=== PATIENT | male | born 1940 | race Caucasian/White ===

== ENCOUNTER 2017-08-09 18:34 | Inpatient (IN) | payer MEDICARE, BC ==
[2017-08-09] MEDS ORDERED: Lactated Ringers 1,000 ML IV SCH ×2 (19:00→19:15)
--- NOTE | 2017-08-09 19:09 | EDM.PDOC ---
ED HPI GENERAL MEDICAL PROBLEM - General Chief Complaint: General Stated Complaint: weakness, fever, confusion Time Seen by Provider: 08/09/17 19:50 Source of Information: Reports: Patient History Limitations: Reports: Altered Mental Status - History of Present Illness INITIAL COMMENTS - FREE TEXT/NARRATIVE: Patient is a 77-year-old who was brought in by the [facility] at the request of the family secondary to changes, progressively getting worse in the last couple days notice decrease appetite lack of interest confusion. Generalized weakness unable to give from up from bed and severe diarrhea Onset: Gradual Duration: Day(s): (Last 2-3 days), Getting Worse Location: Reports: Generalized Quality: Reports: Other (Denies any pain) Improves with: Reports: None Worsens with: Reports: None Context: Reports: Other (Ill-appearing) Associated Symptoms: Reports: Confusion, Fever/Chills, Loss of Appetite, Weakness - Related Data Allergies Allergy/AdvReac Type Severity Reaction Status Date / Time No Known Allergies Allergy Verified 08/09/17 18:41 Home Meds: Home Meds Aspirin 325 mg PO DAILY 08/09/17 [History] Cholecalciferol (Vitamin D3) [Vitamin D3] 2,000 unit PO DAILY 08/09/17 [History] Docusate Sodium [Dok] 100 mg PO QID 08/09/17 [History] Ferrous Sulfate 325 mg PO DAILY 08/09/17 [History] Furosemide [Lasix] 40 mg PO BID 08/09/17 [History] Gabapentin [Neurontin] 300 mg PO BID 08/09/17 [History] Insulin Aspart [Novolog Flexpen] 6 units SQ ASDIRECTED PRN 08/09/17 [History] Insulin Aspart [Novolog Flexpen] 12 units SQ DAILY 08/09/17 [History] Insulin Aspart [Novolog Flexpen] 23 units SQ DAILY@1700 08/09/17 [History] Insulin Aspart [Novolog Flexpen] 27 units SQ DAILY@1200 08/09/17 [History] Insulin Glargine,Hum.Rec.Anlog [Basaglar Kwikpen U-100] 68 unit SQ DAILY [History] Losartan [Cozaar] 100 mg PO DAILY 08/09/17 [History] Metoprolol Succinate 100 mg PO DAILY 08/09/17 [History] Multivitamin [Multivitamins] 1 tab PO DAILY 08/09/17 [History] [place]-3/DHA/Epa/Fish Oil [[place] 3 500 Softgel] 2 tab PO DAILY 08/09/17 [History] Oxybutynin [Oxybutynin ER] 10 mg PO BEDTIME 08/09/17 [History] Solifenacin [Vesicare] 10 mg PO DAILY 08/09/17 [History] Travoprost [Travatan Z 0.004% Ophth Soln] 2 drop EYEBOTH BEDTIME 08/09/17 [ History] Triamcinolone Acetonide [Triamcinolone Acetonide 0.1% Crm] 1 applic TOP BID [History] amLODIPine Besylate [Amlodipine Besylate] 10 mg PO DAILY 08/09/17 [History] atorvaSTATin [Lipitor] 40 mg PO BEDTIME 08/09/17 [History] hydrALAZINE [Apresoline] 100 mg PO QID 08/09/17 [History] ED ROS GENERAL - Review of Systems Review Of Systems: See Below Constitutional: Reports: Chills, Weakness, Decreased Appetite HEENT: Reports: No Symptoms Respiratory: Reports: No Symptoms Cardiovascular: Reports: No Symptoms Endocrine: Reports: No Symptoms GI/Abdominal: Reports: No Symptoms : Reports: No Symptoms Musculoskeletal: Reports: Muscle Pain Skin: Reports: Dryness Neurological: Reports: Confusion, Weakness Psychiatric: Reports: No Symptoms Hematologic/Lymphatic: Reports: No Symptoms Immunologic: Reports: No Symptoms ED EXAM, GENERAL - Physical Exam Exam: See Below Exam Limited By: Altered Mental Status General Appearance: Alert (But confused), No Apparent Distress, Other (Obese) Ears: Normal External Exam, Normal Canal, Hearing Grossly Normal Ear Exam: Bilateral Ear: Auricle Normal, Canal Normal, TM normal Nose: Normal Inspection Throat/Mouth: Normal Inspection, Normal Lips, Normal Teeth, Normal Gums, Normal Oropharynx, Normal Voice, No Airway Compromise Head: Atraumatic, Normocephalic Neck: Normal Inspection, Supple, Non-Tender, Full Range of Motion Respiratory/Chest: No Respiratory Distress, Decreased Breath Sounds, Rales ( Basis) Cardiovascular: Regular Rate, Rhythm, Systolic Murmur Course - Vital Signs Last Recorded V/S: Last Vital Signs Temp 98.8 F 08/10/17 12:00 Pulse 73 08/10/17 12:00 Resp 18 08/10/17 12:00 BP 112/53 L 08/10/17 12:14 Pulse Ox 95 08/10/17 12:00 - Orders/Labs/Meds Labs: Laboratory Tests 08/09/17 08/09/17 08/09/17 Range/Units 19:05 19:05 19:05 WBC 17.3 H (4.0-10.2) K/uL RBC 4.00 L (4.33-5.41) M/uL Hgb 12.1 L (13.1-16.8) g/dL Hct 34.2 L (39.0-49.0) % MCV 85.5 (84.0-98.0) fL MCH 30.3 (28.2-33.3) pg MCHC 35.4 (31.7-36.0) g/dL RDW 13.8 (11.2-14.1) % Plt Count 170 (150-350) K/uL Neut % (Auto) 83.3 H (45.0-80.0) % Lymph % (Auto) 7.5 L (10.0-50.0) % [place] % (Auto) 8.4 (2.0-14.0) % Eos % (Auto) 0.6 (0.0-5.0) % Baso % (Auto) 0.2 (0.0-2.0) % Neut # (Auto) 14.40 H (1.40-7.00) K/uL Lymph # (Auto) 1.29 (0.50-3.50) K/uL [place] # (Auto) 1.46 H (0.00-1.00) K/uL Eos # (Auto) 0.10 (0.00-0.50) K/uL Baso # (Auto) 0.03 (0.00-0.20) K/uL D-Dimer, Quantitative (0-400) ng/mL Sodium 138 (136-145) mmol/L Potassium 3.2 L (3.5-5.1) mmol/L Chloride 100 (98-107) mmol/L Carbon Dioxide 26.8 (21.0-32.0) mmol/L BUN 30 H (7-18) mg/dL Creatinine 1.69 H (0.51-1.17) mg/dL Est Cr Clr Drug Dosing 36.02 mL/min Estimated GFR (MDRD) 39 mL/min Glucose 98 (74-106) mg/dL Lactic Acid 1.5 (0.4-2.0) mmol/L Calcium 8.9 (8.5-10.1) mg/dL Total Bilirubin 0.8 (0.2-1.0) mg/dL AST 16 (15-37) U/L ALT 15 (12-78) U/L Alkaline Phosphatase 93 (46-116) IU/L NT-Pro-B Natriuret Pep (0-125) pg/mL Total Protein 8.0 (6.4-8.2) g/dL Albumin 3.3 L (3.4-5.0) g/dL 08/09/17 08/09/17 Range/Units 19:05 19:05 WBC (4.0-10.2) K/uL RBC (4.33-5.41) M/uL Hgb (13.1-16.8) g/dL Hct (39.0-49.0) % MCV (84.0-98.0) fL MCH (28.2-33.3) pg MCHC (31.7-36.0) g/dL RDW (11.2-14.1) % Plt Count (150-350) K/uL Neut % (Auto) (45.0-80.0) % Lymph % (Auto) (10.0-50.0) % [place] % (Auto) (2.0-14.0) % Eos % (Auto) (0.0-5.0) % Baso % (Auto) (0.0-2.0) % Neut # (Auto) (1.40-7.00) K/uL Lymph # (Auto) (0.50-3.50) K/uL [place] # (Auto) (0.00-1.00) K/uL Eos # (Auto) (0.00-0.50) K/uL Baso # (Auto) (0.00-0.20) K/uL D-Dimer, Quantitative 2110 H (0-400) ng/mL Sodium (136-145) mmol/L Potassium (3.5-5.1) mmol/L Chloride (98-107) mmol/L Carbon Dioxide (21.0-32.0) mmol/L BUN (7-18) mg/dL Creatinine (0.51-1.17) mg/dL Est Cr Clr Drug Dosing mL/min Estimated GFR (MDRD) mL/min Glucose (74-106) mg/dL Lactic Acid (0.4-2.0) mmol/L Calcium (8.5-10.1) mg/dL Total Bilirubin (0.2-1.0) mg/dL AST (15-37) U/L ALT (12-78) U/L Alkaline Phosphatase (46-116) IU/L NT-Pro-B Natriuret Pep 1229 H (0-125) pg/mL Total Protein (6.4-8.2) g/dL Albumin (3.4-5.0) g/dL Meds: Medications Discontinued Medications Generic Name Dose Route Start Last Admin Trade Name Freq PRN Reason Stop Dose Admin Acetaminophen 650 mg 08/10/17 03:39 08/10/17 10:12 Tylenol PO 650 mg Q4H PRN Administration Fever Amlodipine Besylate 10 mg 08/09/17 21:30 08/10/17 08:28 Norvasc PO 10 mg DAILY [facility] Administration Aspirin 325 mg 08/10/17 08:00 08/10/17 08:27 Aspirin PO 325 mg DAILY [facility] Administration Atorvastatin Calcium 40 mg 08/10/17 20:00 Lipitor PO BEDTIME [facility] Cholecalciferol 2,000 units 08/10/17 08:00 08/10/17 08:28 Vitamin D3 PO 2,000 units DAILY [facility] Administration Enoxaparin Sodium 40 mg 08/10/17 08:00 08/10/17 09:29 Lovenox SUBCUT Not Given DAILY [facility] Fish Oil 1 gm 08/10/17 08:00 08/10/17 08:27 Fish Oil PO 1 gm DAILY [facility] Administration Furosemide 40 mg 08/09/17 19:48 08/09/17 19:55 Lasix IVPUSH 08/09/17 19:49 40 mg NOW ONE Administration Furosemide 40 mg 08/10/17 08:00 08/10/17 08:29 Lasix IVPUSH 40 mg DAILY [facility] Administration Furosemide 40 mg 08/10/17 08:00 Lasix IVPUSH DAILY [facility] Gabapentin 300 mg 08/10/17 08:00 08/10/17 08:27 Neurontin PO 300 mg BID [facility] Administration Hydralazine HCl 100 mg 08/10/17 08:00 08/10/17 12:14 Apresoline PO Not Given QID [facility] Lactated Ringer's 1,000 mls @ 100 mls/hr 08/09/17 19:00 08/09/17 19:35 Ringers, Lactated IV 100 mls/hr ASDIRECTED [facility] Administration Lactated Ringer's 1,000 mls @ 100 mls/hr 08/09/17 19:15 Ringers, Lactated IV ASDIRECTED [facility] Levofloxacin/Dextrose 500 mg/ 100 mls @ 100 mls/hr 08/09/17 21:00 08/09/17 22 :16 Premix IV 100 mls/hr Q24H [facility] Administration Piperacillin Sod/Tazobactam 100 mls @ 200 mls/hr 08/09/17 22:00 08/10/17 09: 53 Sod 3.375 gm/ Sodium Chloride IV 200 mls/hr Q6H [facility] Administration Levofloxacin/Dextrose 750 mg/ 150 mls @ 100 mls/hr 08/12/17 10:00 Premix IV Q48H [facility] Piperacillin Sod/Tazobactam 100 mls @ 200 mls/hr 08/10/17 16:00 Sod 2.25 gm/ Sodium Chloride IV Q6H [facility] Insulin Aspart 6 unit 08/09/17 21:19 Novolog SUBCUT ASDIRECTED PRN with snacks Insulin Aspart 12 unit 08/10/17 08:00 Novolog SUBCUT DAILY [facility] Insulin Aspart 23 unit 08/10/17 17:00 Novolog SUBCUT DAILY@1700 [facility] Insulin Aspart 27 unit 08/10/17 12:00 08/10/17 12:02 Novolog SUBCUT Not Given DAILY@1200 [facility] Insulin Detemir 68 unit 08/10/17 08:00 08/10/17 09:25 Levemir SUBCUT Not Given DAILY [facility] Latanoprost 0 ml 08/10/17 20:00 Xalatan 0.005% Ophth Soln EYEBOTH BEDTIME [facility] Metoprolol Succinate 100 mg 08/10/17 08:00 08/10/17 08:26 Toprol Xl PO 100 mg DAILY [facility] Administration Potassium Chloride 40 meq 08/09/17 19:50 08/09/17 19:55 Klor-Con M20 PO 08/09/17 19:51 40 meq ONETIME ONE Administration Sodium Chloride 10 ml 08/09/17 19:12 08/10/17 04:03 Saline Flush FLUSH 10 ml ASDIRECTED PRN Administration Keep Vein Open Triamcinolone Acetonide 0 gm 08/10/17 08:00 08/10/17 08:30 Triamcinolone Acetonide 0.1% Crm TOP 1 applic BID [facility] Administration Departure - Departure Time of Disposition: 21:20 Disposition: Admitted As Inpatient 65 Condition: Poor Clinical Impression: CHF, Congestive heart failure, Hypoxemia, Chronic renal disease - Discharge Information - Problem List Review Problem List Initiated/Reviewed/Updated: Yes - Assessment/Plan Admission H&P: Please use this note as an admission H&P
[2017-08-09] MEDS ORDERED: Furosemide 40 MG/4 ML VIAL IVPUSH ONE (19:48)
[2017-08-09] MEDS ORDERED: Potassium Chloride 20 MEQ Tab.ER PO ONE (19:50)
[2017-08-09] MEDS: Sodium Chloride 0.9% 10 ML Syringe FLUSH PRN ×3 (19:55→23:19)
[2017-08-09] MEDS ORDERED: Levofloxacin/Dextrose 5%-Water 500 MG in Premix Bag 1 BAG IV SCH (21:00)
[2017-08-09] MEDS ORDERED: Insulin Aspart 100 Units/ML 3 ML Pen SUBCUT PRN (21:19)
[2017-08-09] MEDS: amLODIPine 5 MG Tab PO SCH (22:24)
[2017-08-09] MEDS: Piperacillin/Tazobactam 3.375 GM in Sodium Chloride 0.9% 100 ML IV SCH (23:19)
[2017-08-10] MEDS: Piperacillin/Tazobactam 3.375 GM in Sodium Chloride 0.9% 100 ML IV SCH ×2 (04:02→09:53)
[2017-08-10] MEDS: Acetaminophen 325 MG Tab PO PRN ×2 (04:02→10:12)
[2017-08-10] MEDS: Sodium Chloride 0.9% 10 ML Syringe FLUSH PRN (04:03)
[2017-08-10] MEDS ORDERED: Aspirin 325 MG Tab PO SCH (08:00)
[2017-08-10] MEDS ORDERED: Insulin Detemir 100 Units/ML 3 ML Pen SUBCUT SCH (08:00)
[2017-08-10] MEDS ORDERED: Triamcinolone Acetonide 0.1% Crm 15 GM Tube TOP SCH (08:00)
[2017-08-10] MEDS ORDERED: Gabapentin 300 MG Cap PO SCH (08:00)
[2017-08-10] MEDS ORDERED: Insulin Aspart 100 Units/ML 3 ML Pen SUBCUT SCH ×3 (08:00→17:00)
[2017-08-10] MEDS ORDERED: Cholecalciferol (Vitamin D3) 1,000 Unit Tab PO SCH (08:00)
[2017-08-10] MEDS ORDERED: Fish Oil/Omega-3 Fatty Acids 1 Gm Cap PO SCH (08:00)
[2017-08-10] MEDS ORDERED: Metoprolol Succinate 50 MG Tab.ER PO SCH (08:00)
[2017-08-10] MEDS ORDERED: Furosemide 40 MG/4 ML VIAL IVPUSH SCH ×2 (08:00)
[2017-08-10] MEDS: amLODIPine 5 MG Tab PO SCH (08:28)
[2017-08-10] MEDS: hydrALAZINE 50 MG Tab PO SCH ×2 (08:29→12:14)
[2017-08-10] MEDS: Enoxaparin 40 MG/0.4 ML Syringe SUBCUT SCH ×2 (08:30→09:29)
--- NOTE | 2017-08-10 12:01 | PCM.DCSUM1 ---
Discharge Summary - Hospital Course Free Text/Narrative:: Patient is a 77-year-old who was admitted to the hospital yesterday secondary to CHF pneumonia renal insufficiency and diarrhea for 3 days at this time patient was admitted and started on antibiotics Lasix and IV fluids patient became hypoxic during the night with watery diarrhea Hemoccult-positive at bedside today increased confusion and generalized weakness labs show hemoglobin dropping from 12.1 to 10.6 D dimer elevated to 2110 and creatinine up to 1.8 at this time I feel that this patient needs a perfusion scan and may need anticoagulant therapy but I'm concerned about his positive Hemoccult and all his comorbidities that are going on. - Discharge Data Discharge Date: 08/10/17 Discharge Disposition: Home, Self-Care 01 Preliminary Cause of *Q: Multi System Organ Failure Condition: Poor - Patient Summary/Data Consults: Consultations 08/09/17 20:50 Consult to Pharmacy [CONS] Routine Dr. Ferrari at [facility] [place] - Patient Instructions Diet: Heart Healthy Diet (Caffeine free) Activity: As Tolerated, Bedrest Showering/Bathing: No Showering - Discharge Plan Home Medications: Home Meds Aspirin 325 mg PO DAILY 08/09/17 [History] Cholecalciferol (Vitamin D3) [Vitamin D3] 2,000 unit PO DAILY 08/09/17 [History] Docusate Sodium [Dok] 100 mg PO QID 08/09/17 [History] Ferrous Sulfate 325 mg PO DAILY 08/09/17 [History] Furosemide [Lasix] 40 mg PO BID 08/09/17 [History] Gabapentin [Neurontin] 300 mg PO BID 08/09/17 [History] Insulin Aspart [Novolog Flexpen] 6 units SQ ASDIRECTED PRN 08/09/17 [History] Insulin Aspart [Novolog Flexpen] 12 units SQ DAILY 08/09/17 [History] Insulin Aspart [Novolog Flexpen] 23 units SQ DAILY@1700 08/09/17 [History] Insulin Aspart [Novolog Flexpen] 27 units SQ DAILY@1200 08/09/17 [History] Insulin Glargine,Hum.Rec.Anlog [Basaglar Kwikpen U-100] 68 unit SQ DAILY [History] Losartan [Cozaar] 100 mg PO DAILY 08/09/17 [History] Metoprolol Succinate 100 mg PO DAILY 08/09/17 [History] Multivitamin [Multivitamins] 1 tab PO DAILY 08/09/17 [History] [place]-3/DHA/Epa/Fish Oil [[place] 3 500 Softgel] 2 tab PO DAILY 08/09/17 [History] Oxybutynin [Oxybutynin ER] 10 mg PO BEDTIME 08/09/17 [History] Solifenacin [Vesicare] 10 mg PO DAILY 08/09/17 [History] Travoprost [Travatan Z 0.004% Ophth Soln] 2 drop EYEBOTH BEDTIME 08/09/17 [ History] Triamcinolone Acetonide [Triamcinolone Acetonide 0.1% Crm] 1 applic TOP BID [History] amLODIPine Besylate [Amlodipine Besylate] 10 mg PO DAILY 08/09/17 [History] atorvaSTATin [Lipitor] 40 mg PO BEDTIME 08/09/17 [History] hydrALAZINE [Apresoline] 100 mg PO QID 08/09/17 [History] Forms: ED Department Discharge Referrals: Aria Andrew, [employer] [Primary Care Provider] - - Discharge Summary/Plan Comment Discharge Summary/Plan Comment: At this time plan to transfer to [facility] Dr. Ferrari accepted transfer - General Info Date of Service: 08/10/17 Functional Status: Reports: Tolerating Diet - Review of Systems General: Reports: Fever, Weakness HEENT: Reports: No Symptoms Pulmonary: Reports: Other (Hypoxic) Gastrointestinal: Reports: Diarrhea (Cultures obtained) Genitourinary: Reports: Retention (Perez in place) Musculoskeletal: Reports: Other (Generalized weakness) Skin: Reports: No Symptoms Neurological: Reports: Confusion, Other ( states that while at home he was able to ambulate with some assistance but in the hospital he needs assistance of 2 to do minimal activity unable to ambulate or turn over in bed) Psychiatric: Reports: Confusion - Patient Data Vitals - Most Recent: Last Vital Signs Temp 100.9 F H 08/10/17 10:08 Pulse 79 08/10/17 08:26 Resp 20 08/10/17 08:00 BP 141/64 H 08/10/17 08:29 Pulse Ox 95 08/10/17 08:00 Weight - Most Recent: 265 lb I&O - Last 24 hours: Intake & Output 08/09/17 08/10/17 08/10/17 22:59 06:59 14:59 Intake Total 940 700 Output Total 600 Balance 340 700 Lab Results - Last 24 hrs: Laboratory Results - last 24 hr 08/09/17 08/10/17 08/10/17 Range/Units 23:35 03:30 03:58 WBC (4.0-10.2) K/uL RBC (4.33-5.41) M/uL Hgb (13.1-16.8) g/dL Hct (39.0-49.0) % MCV (84.0-98.0) fL MCH (28.2-33.3) pg MCHC (31.7-36.0) g/dL RDW (11.2-14.1) % Plt Count (150-350) K/uL Neut % (Auto) (45.0-80.0) % Lymph % (Auto) (10.0-50.0) % [place] % (Auto) (2.0-14.0) % Eos % (Auto) (0.0-5.0) % Baso % (Auto) (0.0-2.0) % Neut # (Auto) (1.40-7.00) K/uL Lymph # (Auto) (0.50-3.50) K/uL [place] # (Auto) (0.00-1.00) K/uL Eos # (Auto) (0.00-0.50) K/uL Baso # (Auto) (0.00-0.20) K/uL Sodium (136-145) mmol/L Potassium (3.5-5.1) mmol/L Chloride (98-107) mmol/L Carbon Dioxide (21.0-32.0) mmol/L BUN (7-18) mg/dL Creatinine (0.51-1.17) mg/dL Est Cr Clr Drug Dosing mL/min Estimated GFR (MDRD) mL/min Glucose (74-106) mg/dL POC Glucose 67 100 (65-110) mg/dl Calcium (8.5-10.1) mg/dL Specimen Type [place] Urine Color Yellow Urine Appearance Clear Urine pH 5.0 (5.0-9.0) Ur Specific [place] 1.010 (1.005-1.030) Urine Protein Negative (NEGATIVE) mg/dL Urine Glucose (UA) Negative (NEGATIVE) mg/dL Urine Ketones Negative (NEGATIVE) mg/dL Urine Occult Blood Negative (NEGATIVE) Urine Nitrite Negative (NEGATIVE) Urine Bilirubin Negative (NEGATIVE) Urine Urobilinogen 0.2 (0.2-1.0) E.U./dL Ur Leukocyte Esterase Negative (NEGATIVE) Urine RBC 0-5 /HPF Urine WBC Not seen /HPF Ur Epithelial Cells Rare /LPF Amorphous Sediment Few (0/HPF) /HPF Urine Bacteria Rare (NONE TO FEW) /HPF Hyaline Casts Rare H (NEGATIVE) /LPF 08/10/17 08/10/17 08/10/17 Range/Units 07:33 07:40 07:40 WBC 14.7 H (4.0-10.2) K/uL RBC 3.54 L (4.33-5.41) M/uL Hgb 10.7 L (13.1-16.8) g/dL Hct 30.3 L (39.0-49.0) % MCV 85.6 (84.0-98.0) fL MCH 30.2 (28.2-33.3) pg MCHC 35.3 (31.7-36.0) g/dL RDW 13.8 (11.2-14.1) % Plt Count 125 L (150-350) K/uL Neut % (Auto) 72.6 (45.0-80.0) % Lymph % (Auto) 14.0 (10.0-50.0) % [place] % (Auto) 12.7 (2.0-14.0) % Eos % (Auto) 0.6 (0.0-5.0) % Baso % (Auto) 0.1 (0.0-2.0) % Neut # (Auto) 10.66 H (1.40-7.00) K/uL Lymph # (Auto) 2.05 (0.50-3.50) K/uL [place] # (Auto) 1.87 H (0.00-1.00) K/uL Eos # (Auto) 0.09 (0.00-0.50) K/uL Baso # (Auto) 0.02 (0.00-0.20) K/uL Sodium 138 (136-145) mmol/L Potassium 3.0 L (3.5-5.1) mmol/L Chloride 101 (98-107) mmol/L Carbon Dioxide 26.4 (21.0-32.0) mmol/L BUN 30 H (7-18) mg/dL Creatinine 1.80 H (0.51-1.17) mg/dL Est Cr Clr Drug Dosing 33.82 mL/min Estimated GFR (MDRD) 37 mL/min Glucose 101 (74-106) mg/dL POC Glucose 86 (65-110) mg/dl Calcium 8.4 L (8.5-10.1) mg/dL Specimen Type Urine Color Urine Appearance Urine pH (5.0-9.0) Ur Specific [place] (1.005-1.030) Urine Protein (NEGATIVE) mg/dL Urine Glucose (UA) (NEGATIVE) mg/dL Urine Ketones (NEGATIVE) mg/dL Urine Occult Blood (NEGATIVE) Urine Nitrite (NEGATIVE) Urine Bilirubin (NEGATIVE) Urine Urobilinogen (0.2-1.0) E.U./dL Ur Leukocyte Esterase (NEGATIVE) Urine RBC /HPF Urine WBC /HPF Ur Epithelial Cells /LPF Amorphous Sediment (0/HPF) /HPF Urine Bacteria (NONE TO FEW) /HPF Hyaline Casts (NEGATIVE) /LPF 08/10/17 Range/Units 11:27 WBC (4.0-10.2) K/uL RBC (4.33-5.41) M/uL Hgb (13.1-16.8) g/dL Hct (39.0-49.0) % MCV (84.0-98.0) fL MCH (28.2-33.3) pg MCHC (31.7-36.0) g/dL RDW (11.2-14.1) % Plt Count (150-350) K/uL Neut % (Auto) (45.0-80.0) % Lymph % (Auto) (10.0-50.0) % [place] % (Auto) (2.0-14.0) % Eos % (Auto) (0.0-5.0) % Baso % (Auto) (0.0-2.0) % Neut # (Auto) (1.40-7.00) K/uL Lymph # (Auto) (0.50-3.50) K/uL [place] # (Auto) (0.00-1.00) K/uL Eos # (Auto) (0.00-0.50) K/uL Baso # (Auto) (0.00-0.20) K/uL Sodium (136-145) mmol/L Potassium (3.5-5.1) mmol/L Chloride (98-107) mmol/L Carbon Dioxide (21.0-32.0) mmol/L BUN (7-18) mg/dL Creatinine (0.51-1.17) mg/dL Est Cr Clr Drug Dosing mL/min Estimated GFR (MDRD) mL/min Glucose (74-106) mg/dL POC Glucose 137 H (65-110) mg/dl Calcium (8.5-10.1) mg/dL Specimen Type Urine Color Urine Appearance Urine pH (5.0-9.0) Ur Specific [place] (1.005-1.030) Urine Protein (NEGATIVE) mg/dL Urine Glucose (UA) (NEGATIVE) mg/dL Urine Ketones (NEGATIVE) mg/dL Urine Occult Blood (NEGATIVE) Urine Nitrite (NEGATIVE) Urine Bilirubin (NEGATIVE) Urine Urobilinogen (0.2-1.0) E.U./dL Ur Leukocyte Esterase (NEGATIVE) Urine RBC /HPF Urine WBC /HPF Ur Epithelial Cells /LPF Amorphous Sediment (0/HPF) /HPF Urine Bacteria (NONE TO FEW) /HPF Hyaline Casts (NEGATIVE) /LPF Med Orders - Current: Current Medications Acetaminophen (Tylenol) 650 mg PO Q4H PRN PRN Reason: Fever Last Admin: 08/10/17 10:12 Dose: 650 mg Amlodipine Besylate (Norvasc) 10 mg PO DAILY [facility] Last Admin: 08/10/17 08:28 Dose: 10 mg Aspirin (Aspirin) 325 mg PO DAILY [facility] Last Admin: 08/10/17 08:27 Dose: 325 mg Atorvastatin Calcium (Lipitor) 40 mg PO BEDTIME [facility] Cholecalciferol (Vitamin D3) 2,000 units PO DAILY [facility] Last Admin: 08/10/17 08:28 Dose: 2,000 units Fish Oil (Fish Oil) 1 gm PO DAILY [facility] Last Admin: 08/10/17 08:27 Dose: 1 gm Furosemide (Lasix) 40 mg IVPUSH DAILY [facility] Last Admin: 08/10/17 08:29 Dose: 40 mg Gabapentin (Neurontin) 300 mg PO BID [facility] Last Admin: 08/10/17 08:27 Dose: 300 mg Hydralazine HCl (Apresoline) 100 mg PO QID [facility] Last Admin: 08/10/17 08:29 Dose: 100 mg Levofloxacin/Dextrose 750 mg/ (Premix) 150 mls @ 100 mls/hr IV Q48H [facility] Piperacillin Sod/Tazobactam (Sod 2.25 gm/ Sodium Chloride) 100 mls @ 200 mls/ hr IV Q6H [facility] Insulin Aspart (Novolog) 6 unit SUBCUT ASDIRECTED PRN PRN Reason: with snacks Insulin Aspart (Novolog) 12 unit SUBCUT DAILY [facility] Insulin Aspart (Novolog) 23 unit SUBCUT DAILY@1700 [facility] Insulin Aspart (Novolog) 27 unit SUBCUT DAILY@1200 [facility] Insulin Detemir (Levemir) 68 unit SUBCUT DAILY [facility] Last Admin: 08/10/17 09:25 Dose: Not Given Latanoprost (Xalatan 0.005% [facility] Soln) 0 ml EYEBOTH BEDTIME [facility] Metoprolol Succinate (Toprol Xl) 100 mg PO DAILY [facility] Last Admin: 08/10/17 08:26 Dose: 100 mg Sodium Chloride (Saline Flush) 10 ml FLUSH ASDIRECTED PRN PRN Reason: Keep Vein Open Last Admin: 08/10/17 04:03 Dose: 10 ml Triamcinolone Acetonide (Triamcinolone Acetonide 0.1% Crm) 0 gm TOP BID [facility] Last Admin: 08/10/17 08:30 Dose: 1 applic Discontinued Medications Enoxaparin Sodium (Lovenox) 40 mg SUBCUT DAILY [facility] Last Admin: 08/10/17 09:29 Dose: Not Given Furosemide (Lasix) 40 mg IVPUSH NOW ONE Stop: 08/09/17 19:49 Last Admin: 08/09/17 19:55 Dose: 40 mg Furosemide (Lasix) 40 mg IVPUSH DAILY [facility] Lactated Ringer's (Ringers, Lactated) 1,000 mls @ 100 mls/hr IV ASDIRECTED [facility] Last Admin: 08/09/17 19:35 Dose: 100 mls/hr Lactated Ringer's (Ringers, Lactated) 1,000 mls @ 100 mls/hr IV ASDIRECTED [facility] Levofloxacin/Dextrose 500 mg/ (Premix) 100 mls @ 100 mls/hr IV Q24H [facility] Last Admin: 08/09/17 22:16 Dose: 100 mls/hr Piperacillin Sod/Tazobactam (Sod 3.375 gm/ Sodium Chloride) 100 mls @ 200 mls/ hr IV Q6H [facility] Last Admin: 08/10/17 09:53 Dose: 200 mls/hr Potassium Chloride (Klor-Con M20) 40 meq PO ONETIME ONE Stop: 08/09/17 19:51 Last Admin: 08/09/17 19:55 Dose: 40 meq - Exam Quality Assessment: Reports: Supplemental Oxygen General: Reports: Cooperative (Confused) HEENT: Reports: Pupils Equal, Pupils Reactive, EOMI, Mucous Membr. Moist/[place] Neck: Reports: Supple Lungs: Reports: Decreased Breath Sounds, Rales (At the bases) Cardiovascular: Reports: Regular Rate, Regular Rhythm GI/Abdominal Exam: Abnormal Bowel Sounds (Hyperactive), Other (Diarrhea Hemoccult-positive) (Male) Exam: Deferred, Other (Perez catheter secondary to urinary retention once Perez catheter inserted patient was drained 2000 MLS) Rectal (Males) Exam: Deferred Back Exam: Reports: Normal Inspection Extremities: Limited Range of Motion, Other (Weakness) Skin: Reports: Warm, Dry Neurological: Reports: Other (Confused disoriented to time and place, hallucinating) Psy/Mental Status: Reports: Hallucinations (Patient seen birds on top of the television) *Q Meaningful Use (DIS) - VTE *Q VTE Criteria *Q: - Stroke *Q Stroke Criteria *Q: - AMI *Q AMI Criteria *Q:
[2017-08-10] MEDS ORDERED: Piperacillin/Tazobactam 2.25 GM in Sodium Chloride 0.9% 100 ML IV SCH (16:00)
[2017-08-10] MEDS ORDERED: atorvaSTATin 40 MG Tab PO SCH (20:00)
[2017-08-10] MEDS ORDERED: Latanoprost 0.005% Ophth Soln 2.5 ML Bottle EYEBOTH SCH (20:00)
[2017-08-12] MEDS ORDERED: Levofloxacin/Dextrose 5%-Water 750 MG in Premix Bag 1 BAG IV SCH (10:00)
== END 2017-08-10 13:15 | DRG 195 ==
LOC: LL.ED 18:34 → LL.MS 19:50
PROVIDERS: ADMIT Family Medicine; ATTEND Family Medicine
DX: J18.9 Pneumonia, unspecified organism (principal); I50.9 Heart failure, unspecified; R09.02 Hypoxemia; N18.9 Chronic kidney disease, unspecified; Z79.82 Long term (current) use of aspirin; Z79.4 Long term (current) use of insulin; Z79.899 Other long term (current) drug therapy; N28.9 Disorder of kidney and ureter, unspecified; R19.7 Diarrhea, unspecified; R53.1 Weakness; R41.0 Disorientation, unspecified; R19.5 Other fecal abnormalities; R79.1 Abnormal coagulation profile; D64.9 Anemia, unspecified
CPT/HCPCS: 36415; 51702; 71045; 80048; 80053; 81001; 82272; 82962; 83605; 83880; 85025; 85379; 87040; 87493; 96361; 96374; 99285; A9270-GY; J1650; J1940; J1956; J2543; J7050; J7120

== ENCOUNTER 2018-05-30 06:09 | Inpatient (IN) | payer MEDICARE, BC ==
[2018-05-30] MEDS ORDERED: Acetaminophen 325 MG Tab PO PRN ×2 (06:43→10:32)
--- NOTE | 2018-05-30 06:43 | EDM.PDOC ---
ED HPI GENERAL MEDICAL PROBLEM - General Chief Complaint: General Stated Complaint: lethargic, fever Time Seen by Provider: 05/30/18 06:30 Source of Information: Reports: Patient, Family (Son, Miles), [facility] Records, Old Records ([facility]) History Limitations: Reports: Altered Mental Status (Borderline organic brain syndrome) - History of Present Illness INITIAL COMMENTS - FREE TEXT/NARRATIVE: The patient was brought to the emergency room via ambulance with EMT transport with no treatment in route. Only limited history obtained from the long-term. Patient has had a 1 day history of increasing nonproductive cough and low- grade fever with temperature 100.6 degrees earlier this morning. The nursing staff did notice some possible mild increase of his baseline borderline confusion this morning. The patient denies any current pain or discomfort. He is a mildly poor historian secondary to his baseline organic brain syndrome. The patient denies any chest pain/pressure, heart flutter, dizziness, orthostasis, orthopnea, diaphoresis, paresthesias, recent decreased exercise tolerance, or any other anginal-type symptoms. He is urinary incontinent with no known UTI symptoms. No recent history of abdominal pain, heartburn, nausea, diarrhea, melena, gross hematochezia, or any food intolerance, including fatty foods, etc.. The patient also denies any recent wheezing, dyspnea, etc.. Onset: Gradual Onset Date: 05/29/18 Duration: Getting Worse Location: Reports: Other (No pain) Quality: Reports: Same as Previous Episode Improves with: Reports: None Worsens with: Reports: None Context: Reports: Other (As above). Denies: Sick Contact, Trauma Associated Symptoms: Reports: Confusion, Cough, Fever/Chills, Malaise (Mild). Denies: Chest Pain, cough w sputum, Diaphoresis, Headaches, Loss of Appetite, Nausea/Vomiting, Seizure, Shortness of Breath, Syncope, Weakness Treatments TOUCH UP PAINTER: Reports: Other (see below) (None) - Related Data Allergies Allergy/AdvReac Type Severity Reaction Status Date / Time No Known Allergies Allergy Verified 08/09/17 18:41 Home Meds: Home Meds Cholecalciferol (Vitamin D3) [Vitamin D3] 2,000 unit PO DAILY 08/09/17 [History] Docusate Sodium [Dok] 100 mg PO QID 08/09/17 [History] Ferrous Sulfate 325 mg PO DAILY 08/09/17 [History] Furosemide [Lasix] 40 mg PO BID 08/09/17 [History] Gabapentin [Neurontin] 300 mg PO BID 08/09/17 [History] Insulin Aspart [Novolog Flexpen] 4 units SQ DAILY 08/09/17 [History] Insulin Glargine,Hum.Rec.Anlog [Basaglar Kwikpen U-100] 20 unit SQ BEDTIME 08/09 [History] Losartan [Cozaar] 100 mg PO DAILY 08/09/17 [History] Metoprolol Succinate 100 mg PO DAILY 08/09/17 [History] Multivitamin [Multivitamins] 1 tab PO BEDTIME 08/09/17 [History] Oxybutynin [Oxybutynin ER] 10 mg PO DAILY 08/09/17 [History] Travoprost [Travatan Z 0.004% Ophth Soln] 1 drop EYEBOTH BEDTIME 08/09/17 [ History] amLODIPine Besylate [Amlodipine Besylate] 10 mg PO DAILY 08/09/17 [History] atorvaSTATin [Lipitor] 40 mg PO BEDTIME 08/09/17 [History] hydrALAZINE [Apresoline] 100 mg PO QID 08/09/17 [History] Acetaminophen 650 mg PO Q6H PRN 05/30/18 [History] Aspirin [Aspirin EC] 325 mg PO DAILY 05/30/18 [History] Bisacodyl [Dulcolax] 5 mg PO Q12H PRN 05/30/18 [History] Dextran 70/Hypromellose [Artificial Tears] 1 drop EYEBOTH DAILY 05/30/18 [ History] Gabapentin [Neurontin] 100 mg PO DAILY 05/30/18 [History] Sennosides/Docusate Sodium [Senna Plus Tablet] 1 tab PO BEDTIME 05/30/18 [ History] Sennosides/Docusate Sodium [Senna Plus Tablet] 2 tab PO DAILY 05/30/18 [History] Past Medical History HEENT History: Reports: Cataract, Glaucoma, Impaired Vision. Denies: Allergic Rhinitis, Hard of Hearing, Macular Degeneration Cardiovascular History: Reports: High Cholesterol, Hypertension. Denies: Afib, Aneurysm, Arrhythmia, Blood Clots/VTE/DVT, CAD, Heart Failure, Heart Murmur, UT , PVD, Syncope Respiratory History: Reports: Bronchitis, Recurrent, Pneumonia, Recurrent, Sleep Apnea, Other (See Below). Denies: Asthma, COPD, Intubation, Difficult, Intubation, Previous, PE, Pneumothorax, TB Other Respiratory History: He does use CPAP. Gastrointestinal History: Reports: Chronic Constipation, Colon Polyp, Hepatitis , Other (See Below). Denies: Celiac Disease, Cholelithiasis, Fecal Incontinence , Gastritis, GERD, GI Bleed, Hiatal Hernia, Inflammatory Bowel Disease, Irritable Bowel Syndrome, Jaundice, Pancreatitis, PUD Other Gastrointestinal History: C. difficile colitis. Genitourinary History: Reports: BPH, Chronic Renal Insuffiency, Diabetic Nephropathy, Prostate Disorder, Renal Calculus, Urinary Incontinence, Other ( See Below). Denies: Acute Renal Failure, UTI, Recurrent Other Genitourinary History: Renal insufficiency with right sided probable atrophic kidney by bone scan as below. Prostate cancer. Musculoskeletal History: Reports: Arthritis, Back Pain, Chronic, Fracture, Neck Pain, Chronic, Osteoarthritis, Other (See Below). Denies: Amputation, Gout, RA , SLE Other Musculoskeletal History: Wrist fracturedate or side unknown Neurological History: Reports: Alzheimers Disease (Mild), Neuropathy, Diabetic, Neuropathy, Peripheral. Denies: Cerebral Aneurysms, Concussion, CVA, Headaches , Chronic, Head Trauma, Migraines, MS, Parkinson's, Seizure, TIA Psychiatric History: Reports: Addiction, Anxiety, Depression, Other (See Below) . Denies: Abuse, Victim of, ADD, ADHD, Psych Hospitalization(s), PTSD, Suicide Attempt, Suicidal Ideation Other Psychiatric History: Previous anxiety depression disorder and alcohol abuse as below. Endocrine/Metabolic History: Reports: Diabetes, Type II, IDDM, Obesity/BMI 30+. Denies: Diabetes, Type I, Hypothyroidism Hematologic History: Reports: None. Denies: Anemia, Blood Transfusion(s), Iron Deficiency Immunologic History: Reports: None. Denies: AIDS, HIV, SLE Oncologic (Cancer) History: Reports: Prostate, Other (See Below). Denies: Basal Cell Carcinoma, Hodgkin's Lymphoma, Leukemia, Lymphoma, Malignant Melanoma , Non-Hodgkin's Lymphoma, Squamous Cell Carcinoma Other Oncologic History: Prostate cancer with no therapy or surgery. Dermatologic History: Reports: None. Denies: Eczema, Psoriasis - Infectious Disease History Infectious Disease History: Reports: C-Difficile, Chicken Pox, Measles, Mumps, Shingles (Left thoracic region in the early 1970s). Denies: Meningitis, Mononucleosis, MRSA, Pertussis (Whooping Cough), Rheumatic Fever, Rubella, Scarlet Fever, TB, VRE - Past Surgical History Head Surgeries/Procedures: Reports: None HEENT Surgical History: Reports: Cataract Surgery, Laser Surgery, Oral Surgery, Other (See Below). Denies: Adenoidectomy, Eye Surgery, Naso-Sinus Surgery, Tonsillectomy Other HEENT Surgeries/Procedures: Complete teeth extraction with dentures uppers and lowers. Possible unknown eye laser surgery Cardiovascular Surgical History: Denies: Varicose Respiratory Surgical History: Reports: None. Denies: Thoracentesis GI Surgical History: Reports: Colonoscopy, Polypectomy. Denies: Appendectomy, Cholecystectomy, EGD, Hernia, Abdominal, Hernia, Inguinal, Hernia Repair/Other Male Surgical History: Reports: Circumcision. Denies: TURP-Transurethral Resection of Prostate, Vasectomy Endocrine Surgical History: Reports: None. Denies: Thyroid Biopsy Neurological Surgical History: Reports: None. Denies: C-Spine, Discectomy, Laminectomy, Lumbar Spine, Sacral Spine, Spinal Fusion, Thoracic Spine, Vertebroplasty Musculoskeletal Surgical History: Reports: None. Denies: Arthroscopic Procedure , Carpal Tunnel, Ganglion Cyst, Joint Replacement, ORIF, Shoulder Surgery Oncologic Surgical History: Reports: None Dermatological Surgical History: Reports: None - Past Imaging History Past Imaging History: Reports: Bone Scan (Whole body bone scan on .) Social & Family History - Family History HEENT: Reports: None. Denies: Glaucoma, Macular Degeneration, Retinal Detachment Cardiac: Reports: Blood Clots/VTE/DVT, Hypertension, PVD/COD, Other (See Below) . Denies: Afib, Aneurysm, Arrhythmia, CAD, Heart Failure, Heart Murmur, High Cholesterol, UT, Pacemaker, Syncope Other Cardiac Family History: Sons 2 with hypertension. Son with peripheral vascular disease requiring stent placement in his leg with subsequent IntraStent thrombosis. Respiratory: Denies: Asthma, COPD, PE, Pneumothorax, Sleep Apnea GI: Reports: None. Denies: Celiac Disease, Cholelithiasis, Chronic Constipation , Chronic Diarrhea, Colon Polyps, GERD, GI bleed, Inflammatory Bowel Disease, Irritable Bowel Syndrome, PUD : Reports: None. Denies: Renal Calculus, Renal Disease/Insufficiency OBGYN: Reports: None. Denies: Dysfunctional uterine bleeding, Endometriosis, Recurrent Spontaneous Musculoskeletal: Reports: Arthritis, Gout, Osteoarthritis, Other (See Below). Denies: RA, SLE Other Musculoskeletal Family History: Son with osteoarthritis and gout. Neurological: Reports: None. Denies: Alzheimers Disease, CVA, Dementia, Migraines, MS, Parkinson's, Seizure, TIA Psychiatric: Reports: None. Denies: Abuse, Victim of, ADD, ADHD, Anxiety, Depression, Psych Hospitalization(s), PTSD, Suicide Attempt Endocrine/Metabolic: Reports: Diabetes, type II, Other (See Below). Denies: Diabetes, Type I, Diabetes Mellitus, Type 3c, Hypothyroidism, IDDM Other Endocrine/Metabolic Family History: Son with AODM. Hematologic: Reports: None. Denies: Anemia, SLE Immunologic: Reports: None. Denies: AIDS, HIV, SLE Dermatologic: Reports: None. Denies: Eczema, Psoriasis Oncologic: Reports: Cervix, Other (See Below). Denies: Colon, Hodgkin's Lymphoma, Leukemia, Lung, Lymphoma, Non-Hodgkin's Lymphoma, Ovarian, Prostate, Skin, Uterine Other Oncologic Family History: Daughter with fatal cervical cancer at age 26. - Tobacco Use Smoking Status *Q: Former Smoker Years of Tobacco use: 30 Packs/Tins Daily: 1 Packs/Tins Daily Comment: Cigarettes 12 packs per day and discontinued use in about 2007 Used Tobacco, but Quit: Yes Smoking Cessation Information Provided To Patient: No Second Hand Smoke Exposure: No Second Hand Smoke Education Provided: No - Caffeine Use Caffeine Use: Reports: Coffee. Denies: Energy Drinks, Soda, Tea - Alcohol Use Alcohol Use History: Yes Days Per Week of Alcohol Use: 0 Number of Drinks Per Day Comment: Previous possible alcohol abuse for about 20 years stopped.drinking at age 49. - Recreational Drug Use Recreational Drug Use: No Drug Use in Last 12 Months: No Recreational Drug Type: Denies: Amphetamines (Speed), Cocaine, Heroin, Inhalants (Glues, Solvents, Aerosols), LSD (Acid), Marijuana/Hashish, Methamphetamine, Morphine, Oxycodone - Living Situation & Occupation Living situation: Reports: (2018. 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 ED EXAM, GENERAL - Physical Exam Exam: See Below Exam Limited By: No Limitations General Appearance: Alert, WD/WN, No Apparent Distress Eye Exam: Bilateral Eye: EOMI, Normal Inspection (No nystagmus), PERRL Ears: Normal External Exam, Normal Canal, Hearing Grossly Normal, Normal TMs Nose: Normal Inspection, Normal Mucosa, No Blood Throat/Mouth: Normal Lips, Normal Gums, Normal Voice, No Airway Compromise. No : Normal Teeth (Complete absent dentition with patient not having dentures today.), Normal Oropharynx (Trace erythema in the posterior pharynx), Dysphagia , Perioral Cyanosis Head: Atraumatic, Normocephalic. No: Facial Tenderness, Sinus Tenderness Neck: Supple, Non-Tender, Full Range of Motion, Carotid Bruit (Mild bilateral carotid bruits). No: Lymphadenopathy (L), Lymphadenopathy (R), Thyromegaly Respiratory/Chest: No Respiratory Distress, No Accessory Muscle Use, Chest Non- Tender, Rales (Diffuse bilateral basilar ralesmild). No: Rhonchi, Wheezing, Pleural Rub, Retractions Cardiovascular: Normal Peripheral Pulses, Regular Rate, Rhythm, No Gallop, No JVD, No Murmur, No Rub, Tachycardia (Occasional as below). No: No Edema ( Dependent edema as below), Gallop/S3, Gallop/S4, Friction Rub Peripheral Pulses: 2+: Radial (L), Radial (R), Dorsalis Pedis (L), Dorsalis Pedis (R) GI/Abdominal: Normal Bowel Sounds, Soft, Non-Tender, No Organomegaly, No Distention, No Abnormal Bruit, No Mass, Pelvis Stable, Other (Obese). No: Guarding (Male) Exam: Deferred Rectal (Males) Exam: Deferred Back Exam: Normal Inspection, Full Range of Motion. No: CVA Tenderness (L), CVA Tenderness (R), Muscle Spasm Extremities: Normal Range of Motion, Non-Tender, Normal Capillary Refill, Pedal Edema (Trace bilateral pedal/pretibial edema). No: Sarah's Sign Neurological: Alert, Oriented, CN II-XII Intact, Normal Reflexes (Negative Babinski's), No Motor/Sensory Deficits, Confused (Mild) Psychiatric: Normal Affect, Normal Mood Skin Exam: Warm, Dry, Intact, Normal Color, No Rash. No: Diaphoretic, Wound/ Incision Lymphatic: No Adenopathy EKG INTERPRETATION EKG Date: 05/30/18 Time: 06:36 Rhythm: Other (Sinus tachycardia) Rate (Beats/Min): 109 [place]: Normal (Neutral cardiac axis) P-Wave: Enlarged (Mild Diffuse biphasic P waves with extreme poor R-wave progression in the anterior leads) QRS: Normal (QRS interval of 0.09 seconds with left ventricular hypertrophy by voltage) ST-T: Other (Nonspecific ST changes and mild T-wave inversion in lead 3) QT: Normal DC/PQ Interval: 0.16 seconds Comparison: NA - No Prior EKG EKG Interpretation Comments: 1. No acute ischemic changes 2. Left atrial enlargement 3. Left Ventricular hypertrophy by voltage 4. Sinus tachycardia Course - Vital Signs Last Recorded V/S: Last Vital Signs Temp 36.9 C 05/30/18 07:49 Pulse 101 H 05/30/18 09:47 Resp 13 05/30/18 09:47 BP 155/65 H 05/30/18 09:47 Pulse Ox 93 L 05/30/18 09:47 Vital Signs - 24 hr 05/30/18 05/30/18 05/30/18 06:19 06:34 06:49 Pulse, 89 104 H 99 Peripheral [ Left Pulse Oximetry] Respiratory 14 15 17 Rate Blood Pressure 141/82 H 163/61 H 191/85 H [Right Upper Arm] O2 Sat by Pulse 98 92 L Oximetry 05/30/18 05/30/18 07:20 07:34 Pulse, 96 101 H Peripheral [ Left Pulse Oximetry] Respiratory 16 15 Rate Blood Pressure 141/57 H 145/58 H [Right Upper Arm] O2 Sat by Pulse 92 L 93 L Oximetry Vital Signs - 24 hr 05/30/18 05/30/18 05/30/18 06:19 06:34 06:49 Temperature [ Temporal] Pulse, 89 104 H 99 Peripheral [ Left Pulse Oximetry] Respiratory 14 15 17 Rate Blood Pressure 141/82 H 163/61 H 191/85 H [Right Upper Arm] O2 Sat by Pulse 98 92 L Oximetry 05/30/18 05/30/18 05/30/18 07:20 07:34 07:49 Temperature [ 36.9 C Temporal] Pulse, 96 101 H 95 Peripheral [ Left Pulse Oximetry] Respiratory 16 15 14 Rate Blood Pressure 141/57 H 145/58 H 153/50 H [Right Upper Arm] O2 Sat by Pulse 92 L 93 L 93 L Oximetry 05/30/18 05/30/18 05/30/18 08:04 08:19 08:35 Temperature [ Temporal] Pulse, 92 103 H 90 Peripheral [ Left Pulse Oximetry] Respiratory 14 13 13 Rate Blood Pressure 151/66 H 166/64 H 154/58 H [Right Upper Arm] O2 Sat by Pulse 93 L 94 L 94 L Oximetry 05/30/18 05/30/18 05/30/18 08:49 09:05 09:19 Temperature [ Temporal] Pulse, 99 99 100 Peripheral [ Left Pulse Oximetry] Respiratory 13 13 13 Rate Blood Pressure 170/95 H 148/66 H 124/66 [Right Upper Arm] O2 Sat by Pulse 93 L 93 L 93 L Oximetry - Orders/Labs/Meds Orders: Active Orders 24 hr Category Date Time Status Cardiac Monitoring [RC] CONTINUOUS Care 05/30/18 06:44 Active Communication Order [RC] ROUTINE Care 05/30/18 06:44 Active Oxygen Therapy, ED [RC] CONTINUOUS Care 05/30/18 06:44 Active Peripheral IV Care [RC] . DIRECTED Care 05/30/18 06:45 Active Pulse Oximetry [RC] CONTINUOUS Care 05/30/18 06:44 Active Up With Assistance [RC] ASDIRECTED Care 05/30/18 06:44 Active Nothing Per Oral Diet [DIET] Diet 05/30/18 Breakfast Active Chest 1V Frontal [CR] Stat Exams 05/30/18 06:44 Taken CULTURE BLOOD [BC] Stat Lab 05/30/18 06:43 Received CULTURE BLOOD [BC] Stat Lab 05/30/18 07:04 Received CULTURE SPUTUM + SMEAR [RM] Urgent Lab 05/30/18 06:44 Ordered CULTURE URINE [RM] Routine Lab 05/30/18 06:44 Ordered Acetaminophen [Tylenol] Med 05/30/18 06:43 Active 650 mg PO Q4H PRN Azithromycin [Zithromax] 500 mg Med 05/30/18 09:30 Active Sodium Chloride 0.9% [Normal Saline] 250 ml IV Q24H Sodium Chloride 0.9% [Saline Flush] Med 05/30/18 06:43 Active 10 ml FLUSH ASDIRECTED PRN cefTRIAXone [Rocephin] 1 gm Med 05/30/18 09:30 Active Sodium Chloride 0.9% [Normal Saline] 100 ml IV Q12H Blood Culture x2 Reflex Set [OM.PC] Stat Ot 05/30/18 06:44 Ordered Obtain Past Medical Record [OM.PC] Stat Ot 05/30/18 06:44 Active Peripheral IV Insertion Adult [OM.PC] Stat Ot 05/30/18 06:44 Ordered Resuscitation Status Routine Resus Stat 05/30/18 06:43 Ordered Medication Orders Acetaminophen (Tylenol) 650 mg PO Q4H PRN PRN Reason: Pain/Fever Azithromycin 500 mg/ Sodium (Chloride) 250 mls @ 250 mls/hr IV Q24H ELIZABETH Ceftriaxone Sodium 1 gm/ (Sodium Chloride) 100 mls @ 200 mls/hr IV Q12H ELIZABETH Last Admin: 05/30/18 09:25 Dose: 200 mls/hr Sodium Chloride (Saline Flush) 10 ml FLUSH ASDIRECTED PRN PRN Reason: Keep Vein Open Last Admin: 05/30/18 09:37 Dose: 10 ml Labs: Laboratory Tests 05/30/18 05/30/18 05/30/18 Range/Units 06:43 06:43 06:43 WBC 10.2 (4.0-10.2) K/uL RBC 4.13 L (4.33-5.41) M/uL Hgb 11.5 L (13.1-16.8) g/dL Hct 33.6 L (39.0-49.0) % MCV 81.4 L (84.0-98.0) fL MCH 27.8 L (28.2-33.3) pg MCHC 34.2 (31.7-36.0) g/dL RDW 14.9 H (11.2-14.1) % Plt Count 180 (150-350) K/uL Neut % (Auto) 61.8 (45.0-80.0) % Lymph % (Auto) 17.1 (10.0-50.0) % [place] % (Auto) 17.6 H (2.0-14.0) % Eos % (Auto) 3.0 (0.0-5.0) % Baso % (Auto) 0.5 (0.0-2.0) % Neut # (Auto) 6.33 (1.40-7.00) K/uL Lymph # (Auto) 1.75 (0.50-3.50) K/uL [place] # (Auto) 1.80 H (0.00-1.00) K/uL Eos # (Auto) 0.31 (0.00-0.50) K/uL Baso # (Auto) 0.05 (0.00-0.20) K/uL PT 11.2 (9.5-12.0) SEC INR 1.0 Sodium 132 L (136-145) mmol/L Potassium 4.3 (3.5-5.1) mmol/L Chloride 96 L (98-107) mmol/L Carbon Dioxide 25.9 (21.0-32.0) mmol/L BUN 35 H (7-18) mg/dL Creatinine 1.35 H (0.51-1.17) mg/dL Est Cr Clr Drug Dosing TNP Estimated GFR (MDRD) 51 mL/min Glucose 109 H (74-106) mg/dL Lactic Acid (0.4-2.0) mmol/L Calcium 8.9 (8.5-10.1) mg/dL Magnesium 2.0 (1.8-2.4) mg/dL Total Bilirubin 0.8 (0.2-1.0) mg/dL AST 16 (15-37) U/L ALT 21 (12-78) U/L Alkaline Phosphatase 89 (46-116) IU/L Creatine Kinase (26-308) U/L Creatine Kinase Index (0.0-2.5) % CK-MB (CK-2) (0.00-3.60) ng/mL Troponin I 0.007 (0.000-0.056) ng/mL NT-Pro-B Natriuret Pep (0-125) pg/mL Total Protein 7.6 (6.4-8.2) g/dL Albumin 3.1 L (3.4-5.0) g/dL TSH, Ultra Sensitive 4.158 H (0.358-3.740) mIU/mL 05/30/18 05/30/18 Range/Units 06:43 06:43 WBC (4.0-10.2) K/uL RBC (4.33-5.41) M/uL Hgb (13.1-16.8) g/dL Hct (39.0-49.0) % MCV (84.0-98.0) fL MCH (28.2-33.3) pg MCHC (31.7-36.0) g/dL RDW (11.2-14.1) % Plt Count (150-350) K/uL Neut % (Auto) (45.0-80.0) % Lymph % (Auto) (10.0-50.0) % [place] % (Auto) (2.0-14.0) % Eos % (Auto) (0.0-5.0) % Baso % (Auto) (0.0-2.0) % Neut # (Auto) (1.40-7.00) K/uL Lymph # (Auto) (0.50-3.50) K/uL [place] # (Auto) (0.00-1.00) K/uL Eos # (Auto) (0.00-0.50) K/uL Baso # (Auto) (0.00-0.20) K/uL PT (9.5-12.0) SEC INR Sodium (136-145) mmol/L Potassium (3.5-5.1) mmol/L Chloride (98-107) mmol/L Carbon Dioxide (21.0-32.0) mmol/L BUN (7-18) mg/dL Creatinine (0.51-1.17) mg/dL Est Cr Clr Drug Dosing Estimated GFR (MDRD) mL/min Glucose (74-106) mg/dL Lactic Acid 1.4 (0.4-2.0) mmol/L Calcium (8.5-10.1) mg/dL Magnesium (1.8-2.4) mg/dL Total Bilirubin (0.2-1.0) mg/dL AST (15-37) U/L ALT (12-78) U/L Alkaline Phosphatase (46-116) IU/L Creatine Kinase 83 (26-308) U/L Creatine Kinase Index 1.1 (0.0-2.5) % CK-MB (CK-2) 0.90 (0.00-3.60) ng/mL Troponin I (0.000-0.056) ng/mL NT-Pro-B Natriuret Pep 3493 H (0-125) pg/mL Total Protein (6.4-8.2) g/dL Albumin (3.4-5.0) g/dL TSH, Ultra Sensitive (0.358-3.740) mIU/mL Blood cultures 2 were collected Microbiology 05/30/18 07:54 Group A Streptococcus Rapid Screen - Final Throat Positive Strep A Screen 05/30/18 07:50 Influenza Type A Antigen Screen - Final Nasal, Unspecified NEGATIVE INFLUENZA A VIRUS AG Influenza Type B Antigen Screen - Final NEGATIVE INFLUENZA B VIRUS AG Meds: Medications Generic Name Dose Route Start Last Admin Trade Name Freq PRN Reason Stop Dose Admin Acetaminophen 650 mg 05/30/18 06:43 Tylenol PO Q4H PRN Pain/Fever Azithromycin 500 mg/ Sodium 250 mls @ 250 mls/hr 05/30/18 09:30 Chloride IV Q24H ELIZABETH Ceftriaxone Sodium 1 gm/ 100 mls @ 200 mls/hr 05/30/18 09:30 05/30/18 09:25 Sodium Chloride IV 200 mls/hr Q12H ELIZABETH Administration Sodium Chloride 10 ml 05/30/18 06:43 05/30/18 09:37 Saline Flush FLUSH 10 ml ASDIRECTED PRN Administration Keep Vein Open Discontinued Medications Generic Name Dose Route Start Last Admin Trade Name Freq PRN Reason Stop Dose Admin Metoprolol Tartrate 2.5 mg 05/30/18 09:33 05/30/18 09:36 Lopressor IVPUSH 05/30/18 09:34 2.5 mg ONETIME ONE Administration - Radiology Interpretation Free Text/Narrative:: school lunch monitor showed sinus tachycardia with heart rates in the 90s to 110s with no ectopy or arrhythmia Chest x-ray, portable, shows evidence of moderate cardiomegaly and COPD with mild to moderate mostly centralized CHF and possible left pleural effusion. Additional left lower lobe atelectasis versus pulmonary infiltrates. No pneumothorax. Departure - Departure Time of Disposition: 09:50 Disposition: Admitted As Inpatient 65 Condition: Fair Clinical Impression: Need for comfort care, Streptococcus pneumoniae, Strep pharyngitis, Hyponatremia, Hypothyroidism (acquired), IDDM (insulin dependent diabetes mellitus), Organic brain syndrome (chronic), Renal insufficiency, Microcytic anemia, Tachycardia, Hypertension COPD (chronic obstructive pulmonary disease) Qualifiers: COPD type: COPD with acute lower respiratory infection Qualified Code(s): J44.0 - Chronic obstructive pulmonary disease with acute lower respiratory infection CHF (congestive heart failure) Qualifiers: Heart failure type: unspecified Heart failure chronicity: acute on chronic Qualified Code(s): I50.9 - Heart failure, unspecified Osteoarthritis Qualifiers: Osteoarthritis location: multiple joints Osteoarthritis type: primary Qualified Code(s): M15.0 - Primary generalized (osteo)arthritis Sleep apnea Qualifiers: Sleep apnea type: unspecified type Qualified Code(s): G47.30 - Sleep apnea, unspecified - Discharge Information *PRESCRIPTION DRUG MONITORING PROGRAM REVIEWED*: Not Applicable *COPY OF PRESCRIPTION DRUG MONITORING REPORT IN PATIENT TRACEE: Not Applicable - Problem List & Annotations (1) Streptococcus pneumoniae SNOMED Code(s): 72348488 Code(s): A49.1 - STREPTOCOCCAL INFECTION, UNSPECIFIED SITE Status: Acute Priority: High Current Visit: No Onset Date: ~05/29/18 Annotation/Comment: : Initiate IV Rocephin and IV Zithromax therapy emergency room and continue during hospitalization. Aggressive nebulizer treatments as below. No direct evidence of sepsis with blood cultures 2 collected. (2) CHF, Congestive heart failure SNOMED Code(s): 26069959 Code(s): I50.9 - HEART FAILURE, UNSPECIFIED Status: Acute Priority: High Current Visit: No Onset Date: 05/30/18 Annotation/Comment:: No chest pain or anginal type symptoms with chest pain protocol therefore not initiated on arrival.. IV Lasix therapy to be initiated after admission. Initiate standard rule out UT orders. Note that patient is comfort care only, which was confirmed with the patient's son today. No further echocardiogram, cardiac workup, etc. per their request. Cardiology consultation depending on his clinical course. (3) COPD (chronic obstructive pulmonary disease) SNOMED Code(s): 11945989 Code(s): J44.9 - CHRONIC OBSTRUCTIVE PULMONARY DISEASE, UNSPECIFIED Status : Acute Priority: High Current Visit: No Annotation/Comment:: Aggressive nebulizer therapy during this hospitalization, including triple nebulizer treatments, etc.. Qualifiers: COPD type: COPD with acute lower respiratory infection Qualified Code(s): J44.0 - Chronic obstructive pulmonary disease with acute lower respiratory infection (4) Hyponatremia SNOMED Code(s): 48521901 Code(s): E87.1 - HYPO-OSMOLALITY AND HYPONATREMIA Status: Acute Priority : Medium Current Visit: No Onset Date: 05/30/18 Annotation/Comment:: Likely secondary to CHF. Observe for now. IV Lasix therapy as above. (5) Hypothyroidism (acquired) SNOMED Code(s): 466378617 Code(s): E03.9 - HYPOTHYROIDISM, UNSPECIFIED Status: Acute Priority: Medium Current Visit: No Onset Date: 05/30/18 Annotation/Comment:: Newly Diagnosed. Initiate low-dose Synthroid therapy. TSH should be repeated in 4 weeks. (6) IDDM (insulin dependent diabetes mellitus) SNOMED Code(s): 98938869 Code(s): E11.9 - TYPE 2 DIABETES MELLITUS WITHOUT COMPLICATIONS; Z79.4 - REED PRESS FEEDER (CURRENT) USE OF INSULIN Status: Chronic Priority: Medium Current Visit: No Annotation/Comment:: Twice a day sliding scale during hospitalization (7) Microcytic anemia SNOMED Code(s): 752767719 Code(s): D50.9 - IRON DEFICIENCY ANEMIA, UNSPECIFIED Status: Acute Priority: High Current Visit: No Onset Date: 05/30/18 Annotation/Comment: : Newly diagnosed. Iron studies in the a.m. Iron supplementation depending on these findings. (8) Need for comfort care SNOMED Code(s): 352598984, 510696359 Code(s): GFY2818 - Status: Chronic Priority: High Current Visit: No Annotation/Comment:: As above (9) Organic brain syndrome (chronic) SNOMED Code(s): 692732026 Code(s): F09 - UNSP MENTAL DISORDER DUE TO KNOWN PHYSIOLOGICAL CONDITION Status: Chronic Priority: Medium Current Visit: No Annotation/Comment:: Mild increased confusion as above likely secondary to current infection with close observation during this hospitalization (10) Osteoarthritis SNOMED Code(s): 585775082 Code(s): M19.90 - UNSPECIFIED OSTEOARTHRITIS, UNSPECIFIED SITE Status: Chronic Priority: Medium Current Visit: No Annotation/Comment:: Stable by history Qualifiers: Osteoarthritis location: multiple joints Osteoarthritis type: primary Qualified Code(s): M15.0 - Primary generalized (osteo)arthritis (11) Sleep apnea SNOMED Code(s): 62022668 Code(s): G47.30 - SLEEP APNEA, UNSPECIFIED Status: Chronic Priority: Medium Current Visit: No Annotation/Comment:: Patient has been compliant with his CPAP Qualifiers: Sleep apnea type: unspecified type Qualified Code(s): G47.30 - Sleep apnea , unspecified (12) Strep pharyngitis SNOMED Code(s): 37888133 Code(s): J02.0 - STREPTOCOCCAL PHARYNGITIS Status: Acute Priority: High Current Visit: No Onset Date: 05/30/18 Annotation/Comment:: IV Rocephin therapy to be initiated on admission. Influenza screen is negative (13) Chronic renal disease SNOMED Code(s): 414444904 Code(s): N18.9 - CHRONIC KIDNEY DISEASE, UNSPECIFIED Status: Acute Priority: Medium Current Visit: No Annotation/Comment:: Observe his renal status closely secondary to IV Lasix therapy. Qualifiers: Chronic kidney disease stage: stage 3 (moderate) Qualified Code(s): N18.3 - Chronic kidney disease, stage 3 (moderate) (14) Tachycardia SNOMED Code(s): 8158540 Code(s): R00.0 - TACHYCARDIA, UNSPECIFIED Status: Acute Priority: High Current Visit: Yes Onset Date: 05/30/18 Annotation/Comment:: Note probable sinus tachycardia versus threatening atrial fibrillation shortly prior to transfer as above. Patient had not yet received his morning medications including his beta mian. Overall goal good response to low-dose IV Lopressor in the emergency room. Change to observe closely especially in light of nebulizer therapy. (15) Hypertension SNOMED Code(s): 69169500 Code(s): I10 - ESSENTIAL (PRIMARY) HYPERTENSION Status: Chronic Priority : Medium Current Visit: Yes Annotation/Comment:: Blood Pressures were somewhat elevated in the emergency room, although he has not yet received his morning medications. IV Lopressor given as above. Qualifiers: Hypertension type: essential hypertension Qualified Code(s): I10 - Essential (primary) hypertension - Problem List Review Problem List Initiated/Reviewed/Updated: Yes - My Orders Last 24 Hours: My Active Orders 05/30/18 06:43 CULTURE BLOOD [BC] Stat Acetaminophen [Tylenol] 650 mg PO Q4H PRN Sodium Chloride 0.9% [Saline Flush] 10 ml FLUSH ASDIRECTED PRN Resuscitation Status Routine 05/30/18 06:44 Cardiac Monitoring [RC] CONTINUOUS Communication Order [RC] ROUTINE Oxygen Therapy, ED [RC] CONTINUOUS Pulse Oximetry [RC] CONTINUOUS Up With Assistance [RC] ASDIRECTED Chest 1V Frontal [CR] Stat CULTURE SPUTUM + SMEAR [RM] Urgent CULTURE URINE [RM] Routine Blood Culture x2 Reflex Set [OM.PC] Stat Obtain Past Medical Record [OM.PC] Stat Peripheral IV Insertion Adult [OM.PC] Stat 05/30/18 06:45 Peripheral IV Care [RC] . DIRECTED 05/30/18 07:04 CULTURE BLOOD [BC] Stat 05/30/18 09:30 Azithromycin [Zithromax] 500 mg Sodium Chloride 0.9% [Normal Saline] 250 ml IV Q24H cefTRIAXone [Rocephin] 1 gm Sodium Chloride 0.9% [Normal Saline] 100 ml IV Q12H 05/30/18 Breakfast Nothing Per Oral Diet [DIET] - Assessment/Plan Admission H&P: Please use this note as an admission H&P Last 24 Hours: My Active Orders 05/30/18 06:43 CULTURE BLOOD [BC] Stat Acetaminophen [Tylenol] 650 mg PO Q4H PRN Sodium Chloride 0.9% [Saline Flush] 10 ml FLUSH ASDIRECTED PRN Resuscitation Status Routine 05/30/18 06:44 Cardiac Monitoring [RC] CONTINUOUS Communication Order [RC] ROUTINE Oxygen Therapy, ED [RC] CONTINUOUS Pulse Oximetry [RC] CONTINUOUS Up With Assistance [RC] ASDIRECTED Chest 1V Frontal [CR] Stat CULTURE SPUTUM + SMEAR [RM] Urgent CULTURE URINE [RM] Routine Blood Culture x2 Reflex Set [OM.PC] Stat Obtain Past Medical Record [OM.PC] Stat Peripheral IV Insertion Adult [OM.PC] Stat 05/30/18 06:45 Peripheral IV Care [RC] . DIRECTED 05/30/18 07:04 CULTURE BLOOD [BC] Stat 05/30/18 09:30 Azithromycin [Zithromax] 500 mg Sodium Chloride 0.9% [Normal Saline] 250 ml IV Q24H cefTRIAXone [Rocephin] 1 gm Sodium Chloride 0.9% [Normal Saline] 100 ml IV Q12H 05/30/18 Breakfast Nothing Per Oral Diet [DIET] Assessment:: As above Plan: As above. Extensive precautions were given to the patient and his son, who are in agreement with the treatment plan. [facility] physician assumes care shortly after admission. The patient will require about 3-4 days of inpatient/ acute care secondary to multiple health problems as above.
[2018-05-30 07:18] LABS: CHLORIDE,CL 96 mmol/L (98-107); SODIUM,NA 132 mmol/L (136-145)
[2018-05-30] MEDS: cefTRIAXone 1 GM in Sodium Chloride 0.9% 100 ML IV SCH ×2 (09:25→22:35)
[2018-05-30] MEDS ORDERED: Metoprolol Tartrate 5 MG/5 ML SDV IVPUSH ONE (09:33)
[2018-05-30] MEDS: Sodium Chloride 0.9% 10 ML Syringe FLUSH PRN ×2 (09:37→11:21)
[2018-05-30] MEDS ORDERED: Sodium Chloride 0.9% 10 ML Syringe FLUSH PRN (10:32)
[2018-05-30] MEDS ORDERED: Temazepam 15 MG Cap PO PRN (10:32)
[2018-05-30] MEDS ORDERED: Albuterol/Ipratropium 3.0-0.5 MG/3 ML Neb Soln NEB PRN (10:37)
[2018-05-30] MEDS ORDERED: Albuterol 0.083% 2.5 MG/3 ML Neb Soln INH PRN (10:37)
[2018-05-30] MEDS: Metoprolol Succinate 50 MG Tab.ER PO SCH (11:18)
[2018-05-30] MEDS: Furosemide 40 MG/4 ML VIAL IVPUSH SCH ×2 (11:18→20:08)
[2018-05-30] MEDS: Aspirin 325 MG Tab.EC PO SCH (11:19)
[2018-05-30] MEDS: hydrALAZINE 50 MG Tab PO SCH ×3 (11:20→20:06)
[2018-05-30] MEDS: Potassium Chloride 20 MEQ Tab.ER PO SCH ×2 (11:20→17:46)
[2018-05-30] MEDS: Docusate Sodium 100 MG Cap PO SCH ×3 (11:20→20:05)
[2018-05-30] MEDS: Azithromycin 500 MG in Sodium Chloride 0.9% 250 ML IV SCH (11:21)
[2018-05-30] MEDS: Losartan 50 MG Tab PO SCH (11:21)
[2018-05-30] MEDS: Dextromethorphan/guaiFENesin 600-30 MG Tab.ER PO SCH ×2 (11:21→17:46)
[2018-05-30] MEDS: Oxybutynin 5 MG Tab.ER PO SCH (11:28)
[2018-05-30] MEDS ORDERED: Enoxaparin 30 MG/0.3 ML Syringe SUBCUT SCH (12:00)
[2018-05-30] MEDS: Enoxaparin 40 MG/0.4 ML Syringe SUBCUT SCH (13:34)
[2018-05-30] MEDS: Albuterol/Ipratropium 3.0-0.5 MG/3 ML Neb Soln NEB SCH ×2 (14:58→20:08)
[2018-05-30] MEDS: Nystatin Topical Powder 15 GM Bottle TOP SCH (14:58)
[2018-05-30] MEDS: Gabapentin 100 MG Cap PO SCH (14:58)
[2018-05-30] MEDS: Insulin Lispro 100 Units/ML 3 ML Vial SUBCUT SCH (17:45)
[2018-05-30] MEDS: Gabapentin 300 MG Cap PO SCH (17:46)
[2018-05-30] MEDS: atorvaSTATin 40 MG Tab PO SCH (20:05)
[2018-05-30] MEDS: Multivitamin Tab PO SCH (20:06)
[2018-05-30] MEDS: Insulin Glarg,Human.Rec.Analog 100 UNIT/ML ML SUBCUT SCH (20:08)
[2018-05-30] MEDS: Latanoprost 0.005% Ophth Soln 2.5 ML Bottle EYEBOTH SCH (20:13)
[2018-05-31] MEDS: Albuterol/Ipratropium 3.0-0.5 MG/3 ML Neb Soln NEB SCH ×4 (02:15→19:27)
[2018-05-31] MEDS: Furosemide 40 MG/4 ML VIAL IVPUSH SCH ×2 (02:15→11:59)
[2018-05-31 07:40] LABS: HEMOGLOBIN A1C 6.4 % (4.3-5.7)
[2018-05-31] MEDS: Oxybutynin 5 MG Tab.ER PO SCH (07:45)
[2018-05-31] MEDS: amLODIPine 5 MG Tab PO SCH (07:46)
[2018-05-31] MEDS: Cholecalciferol (Vitamin D3) 1,000 Unit Tab PO SCH (07:47)
[2018-05-31] MEDS: hydrALAZINE 50 MG Tab PO SCH ×4 (07:48→19:25)
[2018-05-31] MEDS: Aspirin 325 MG Tab.EC PO SCH (07:48)
[2018-05-31] MEDS: Ferrous Sulfate 325 MG Tab PO SCH (07:49)
[2018-05-31] MEDS: Metoprolol Succinate 50 MG Tab.ER PO SCH (07:49)
[2018-05-31] MEDS: Dextromethorphan/guaiFENesin 600-30 MG Tab.ER PO SCH ×2 (07:49→17:31)
[2018-05-31] MEDS: Potassium Chloride 20 MEQ Tab.ER PO SCH ×3 (07:50→17:31)
[2018-05-31] MEDS: Docusate Sodium 100 MG Cap PO SCH ×4 (07:50→19:26)
[2018-05-31] MEDS: Gabapentin 300 MG Cap PO SCH ×2 (07:51→17:31)
[2018-05-31] MEDS: Losartan 50 MG Tab PO SCH (07:51)
[2018-05-31] MEDS: Nystatin Topical Powder 15 GM Bottle TOP SCH ×2 (07:52→17:32)
[2018-05-31] MEDS: Insulin Lispro 100 Units/ML 3 ML Vial SUBCUT SCH ×3 (07:52→17:30)
[2018-05-31] MEDS: Polyvinyl Alcohol 1.4% Ophth Soln 15 ML Bottle EYEBOTH SCH (07:59)
[2018-05-31] MEDS: cefTRIAXone 1 GM in Sodium Chloride 0.9% 100 ML IV SCH ×2 (09:20→22:56)
[2018-05-31] MEDS: Sodium Chloride 0.9% 10 ML Syringe FLUSH PRN ×3 (09:20→12:02)
[2018-05-31] MEDS: Azithromycin 500 MG in Sodium Chloride 0.9% 250 ML IV SCH (09:21)
[2018-05-31] MEDS: Enoxaparin 40 MG/0.4 ML Syringe SUBCUT SCH (12:00)
[2018-05-31] MEDS: Gabapentin 100 MG Cap PO SCH (15:02)
--- NOTE | 2018-05-31 17:58 | PCM.PN ---
- General Info Date of Service: 05/31/18 Admission Dx/Problem (Free Text): Patient admitted for treatment of pneumonia. Recent cough, increased lethargy, low grade temp. Pneumonia noted on chest film. Changes suggestive of CHF exacerbation also noted. Subjective Update: Patient is without complaint when asked, however he remains pleasantly confused. Noted by staff and family to be hallucinating periodically today. Functional Status: Reports: Pain Controlled, Tolerating Diet, Urinating (Has Perez placed). Denies: Ambulating, New Symptoms - Review of Systems General: Reports: No Symptoms HEENT: Reports: Glasses Pulmonary: Reports: Cough (mild per patient) Cardiovascular: Denies: Chest Pain Gastrointestinal: Reports: No Symptoms Genitourinary: Reports: Retention (patient had over 3000cc returned after Perez placed last evening. Patient did not complain of urinary retention. ) Musculoskeletal: Reports: No Symptoms Skin: Reports: Other (patient does have several decubitus sores) Neurological: Reports: Confusion Psychiatric: Reports: Confusion, Hallucinations. Denies: Suicidal Ideation, Homicidal Ideation - Patient Data Vitals - Most Recent: Last Vital Signs Temp 36.6 C 05/31/18 12:00 Pulse 71 05/31/18 12:00 Resp 20 05/31/18 12:00 BP 139/60 05/31/18 15:03 Pulse Ox 94 L 05/31/18 12:00 Weight - Most Recent: 120.656 kg I&O - Last 24 Hours: Intake & Output 05/31/18 05/31/18 05/31/18 06:59 14:59 22:59 Intake Total 400 1102 Output Total 1500 1000 Balance -1100 1102 -1000 Lab Results Last 24 Hours: Laboratory Results - last 24 hr 05/30/18 05/30/18 05/31/18 Range/Units 15:10 17:40 07:15 WBC 9.8 (4.0-10.2) K/uL RBC 3.90 L (4.33-5.41) M/uL Hgb 11.0 L (13.1-16.8) g/dL Hct 32.2 L (39.0-49.0) % MCV 82.6 L (84.0-98.0) fL MCH 28.2 (28.2-33.3) pg MCHC 34.2 (31.7-36.0) g/dL RDW 14.9 H (11.2-14.1) % Plt Count 157 (150-350) K/uL Neut % (Auto) 66.4 (45.0-80.0) % Lymph % (Auto) 14.7 (10.0-50.0) % Eaton % (Auto) 16.9 H (2.0-14.0) % Eos % (Auto) 1.6 (0.0-5.0) % Baso % (Auto) 0.4 (0.0-2.0) % Neut # (Auto) 6.53 (1.40-7.00) K/uL Lymph # (Auto) 1.45 (0.50-3.50) K/uL [place]aton # (Auto) 1.66 H (0.00-1.00) K/uL Eos # (Auto) 0.16 (0.00-0.50) K/uL Baso # (Auto) 0.04 (0.00-0.20) K/uL Sodium (136-145) mmol/L Potassium (3.5-5.1) mmol/L Chloride (98-107) mmol/L Carbon Dioxide (21.0-32.0) mmol/L BUN (7-18) mg/dL Creatinine (0.51-1.17) mg/dL Est Cr Clr Drug Dosing mL/min Estimated GFR (MDRD) mL/min Glucose (74-106) mg/dL Hemoglobin A1c (4.3-5.7) % Calcium (8.5-10.1) mg/dL Iron (50-175) ug/dL TIBC (250-450) ug/dL % Saturation Ferritin (8-388) ng/mL Total Bilirubin (0.2-1.0) mg/dL AST (15-37) U/L ALT (12-78) U/L Alkaline Phosphatase (46-116) IU/L Creatine Kinase 68 (26-308) U/L Creatine Kinase Index 1.9 (0.0-2.5) % CK-MB (CK-2) 1.30 (0.00-3.60) ng/mL Troponin I 0.001 (0.000-0.056) ng/mL NT-Pro-B Natriuret Pep (0-125) pg/mL Total Protein (6.4-8.2) g/dL Albumin (3.4-5.0) g/dL Triglycerides (30-150) mg/dL Cholesterol (100-200) mg/dL LDL Cholesterol, Calc (0-100) mg/dL HDL Cholesterol (40-60) mg/dL Vitamin B12 (193-986) pg/mL Folate (8.6-58.9) ng/mL Specimen Type Urincc Urine Color Yellow Urine Appearance Clear Urine pH 6.0 (5.0-9.0) Ur Specific [place]ummer 1.010 (1.005-1.030) Urine Protein Negative (NEGATIVE) mg/dL Urine Glucose (UA) Negative (NEGATIVE) mg/dL Urine Ketones Negative (NEGATIVE) mg/dL Urine Occult Blood Negative (NEGATIVE) Urine Nitrite Negative (NEGATIVE) Urine Bilirubin Negative (NEGATIVE) Urine Urobilinogen 0.2 (0.2-1.0) E.U./dL Ur Leukocyte Esterase Negative (NEGATIVE) Urine RBC 10-20 H /HPF Urine WBC 5-10 H /HPF Ur Epithelial Cells Few /LPF Urine Bacteria Few (NONE TO FEW) /HPF Urine Mucus Few H (NEGATIVE) /LPF 05/31/18 05/31/18 05/31/18 Range/Units 07:15 07:15 07:15 WBC (4.0-10.2) K/uL RBC (4.33-5.41) M/uL Hgb (13.1-16.8) g/dL Hct (39.0-49.0) % MCV (84.0-98.0) fL MCH (28.2-33.3) pg MCHC (31.7-36.0) g/dL RDW (11.2-14.1) % Plt Count (150-350) K/uL Neut % (Auto) (45.0-80.0) % Lymph % (Auto) (10.0-50.0) % Eaton % (Auto) (2.0-14.0) % Eos % (Auto) (0.0-5.0) % Baso % (Auto) (0.0-2.0) % Neut # (Auto) (1.40-7.00) K/uL Lymph # (Auto) (0.50-3.50) K/uL Eaton # (Auto) (0.00-1.00) K/uL Eos # (Auto) (0.00-0.50) K/uL Baso # (Auto) (0.00-0.20) K/uL Sodium 133 L (136-145) mmol/L Potassium 4.1 (3.5-5.1) mmol/L Chloride 95 L (98-107) mmol/L Carbon Dioxide 27.4 (21.0-32.0) mmol/L BUN 35 H (7-18) mg/dL Creatinine 1.37 H (0.51-1.17) mg/dL Est Cr Clr Drug Dosing 43.72 mL/min Estimated GFR (MDRD) 50 mL/min Glucose 112 H (74-106) mg/dL Hemoglobin A1c 6.4 H (4.3-5.7) % Calcium 8.9 (8.5-10.1) mg/dL Iron 18 L (50-175) ug/dL TIBC 216 L (250-450) ug/dL % Saturation [id number] Ferritin 320 (8-388) ng/mL Total Bilirubin 0.7 (0.2-1.0) mg/dL AST 12 L (15-37) U/L ALT 21 (12-78) U/L Alkaline Phosphatase 81 (46-116) IU/L Creatine Kinase 54 (26-308) U/L Creatine Kinase Index 1.7 (0.0-2.5) % CK-MB (CK-2) 0.90 (0.00-3.60) ng/mL Troponin I 0.004 (0.000-0.056) ng/mL NT-Pro-B Natriuret Pep 99712 H (0-125) pg/mL Total Protein 7.3 (6.4-8.2) g/dL Albumin 2.9 L (3.4-5.0) g/dL Triglycerides 91 (30-150) mg/dL Cholesterol 71 L (100-200) mg/dL LDL Cholesterol, Calc 18 (0-100) mg/dL HDL Cholesterol 35 L (40-60) mg/dL Vitamin B12 799 (193-986) pg/mL Folate 24.2 (8.6-58.9) ng/mL Specimen Type Urine Color Urine Appearance Urine pH (5.0-9.0) Ur Specific Plummer (1.005-1.030) Urine Protein (NEGATIVE) mg/dL Urine Glucose (UA) (NEGATIVE) mg/dL Urine Ketones (NEGATIVE) mg/dL Urine Occult Blood (NEGATIVE) Urine Nitrite (NEGATIVE) Urine Bilirubin (NEGATIVE) Urine Urobilinogen (0.2-1.0) E.U./dL Ur Leukocyte Esterase (NEGATIVE) Urine RBC /HPF Urine WBC /HPF Ur Epithelial Cells /LPF Urine Bacteria (NONE TO FEW) /HPF Urine Mucus (NEGATIVE) /LPF Ashwin Results Last 24 Hours: Microbiology 05/30/18 15:10 Urine Culture - Preliminary Urine, Catheterized NO GROWTH AFTER 1 DAY 05/30/18 06:43 Aerobic Blood Culture - Preliminary Blood - Venous NO GROWTH AFTER 1 DAY Anaerobic Blood Culture - Preliminary NO GROWTH AFTER 1 DAY 05/30/18 07:04 Aerobic Blood Culture - Preliminary Blood - Venous - Lab Draw NO GROWTH AFTER 1 DAY Anaerobic Blood Culture - Preliminary NO GROWTH AFTER 1 DAY Med Orders - Current: Current Medications Acetaminophen (Tylenol) 650 mg PO Q4H PRN PRN Reason: Pain/Fever Albuterol (Proventil Neb Soln) 2.5 mg INH Q2H PRN PRN Reason: SHORTNESS OF BREATH Albuterol/Ipratropium (Duoneb 3.0-0.5 Mg/3 Ml) 3 ml NEB Q4HRRT PRN PRN Reason: Dyspnea Last Admin: 05/30/18 10:40 Dose: 3 ml Albuterol/Ipratropium (Duoneb 3.0-0.5 Mg/3 Ml) 3 ml NEB Q6HRRT [facility] Last Admin: 05/31/18 15:02 Dose: 3 ml Amlodipine Besylate (Norvasc) 10 mg PO DAILY [facility] Last Admin: 05/31/18 07:46 Dose: 10 mg Artificial Tears (Liquitears 1.4% Ophth Soln) 0 ml EYEBOTH DAILY [facility] Last Admin: 05/31/18 07:59 Dose: 1 drop Aspirin (Ecotrin) 325 mg PO DAILY [facility] Last Admin: 05/31/18 07:48 Dose: 325 mg Atorvastatin Calcium (Lipitor) 40 mg PO BEDTIME [facility] Last Admin: 05/30/18 20:05 Dose: 40 mg Bisacodyl (Dulcolax) 5 mg PO Q12H PRN PRN Reason: Constipation Cholecalciferol (Vitamin D3) 2,000 units PO DAILY [facility] Last Admin: 05/31/18 07:47 Dose: 2,000 units Docusate Sodium (Colace) 100 mg PO QID [facility] Last Admin: 05/31/18 15:02 Dose: 100 mg Enoxaparin Sodium (Lovenox) 40 mg SUBCUT Q24H [facility] Last Admin: 05/31/18 12:00 Dose: 40 mg Ferrous Sulfate (Ferrous Sulfate) 325 mg PO DAILY [facility] Last Admin: 05/31/18 07:49 Dose: 325 mg Furosemide (Lasix) 40 mg IVPUSH Q8H [facility] Last Admin: 05/31/18 11:59 Dose: 40 mg Gabapentin (Neurontin) 100 mg PO DAILY@1400 [facility] Last Admin: 05/31/18 15:02 Dose: 100 mg Gabapentin (Neurontin) 300 mg PO BID [facility] Last Admin: 05/31/18 17:31 Dose: 300 mg Guaifenesin/Dextromethorphan (Mucinex Dm Er 600-30 Mg) 1 tab PO BID [facility] Last Admin: 05/31/18 17:31 Dose: 1 tab Hydralazine HCl (Apresoline) 100 mg PO QID [facility] Last Admin: 05/31/18 15:03 Dose: 100 mg Azithromycin 500 mg/ Sodium (Chloride) 250 mls @ 250 mls/hr IV Q24H [facility] Last Admin: 05/31/18 09:21 Dose: 250 mls/hr Ceftriaxone Sodium 1 gm/ (Sodium Chloride) 100 mls @ 200 mls/hr IV Q12H [facility] Last Admin: 05/31/18 09:20 Dose: 200 mls/hr Insulin Glargine (Lantus) 20 unit SUBCUT BEDTIME [facility] Last Admin: 05/30/18 20:08 Dose: 20 unit Insulin Human Lispro (Humalog) 4 unit SUBCUT DAILY [facility] Last Admin: 05/31/18 07:52 Dose: 4 units Insulin Human Lispro (Humalog) 0 unit SUBCUT BIDAC [facility]; Protocol Last Admin: 05/31/18 17:30 Dose: Not Given Latanoprost (Xalatan 0.005% Ophth Soln) 0 ml EYEBOTH BEDTIME [facility] Last Admin: 05/30/18 20:13 Dose: 1 drop Losartan Potassium (Cozaar) 100 mg PO DAILY [facility] Last Admin: 05/31/18 07:51 Dose: 100 mg Metoprolol Succinate (Toprol Xl) 100 mg PO DAILY [facility] Last Admin: 05/31/18 07:49 Dose: 100 mg Multivitamins/Minerals/Vitamin C (Tab-A-Sandra) 1 tab PO BEDTIME [facility] Last Admin: 05/30/18 20:06 Dose: 1 tab Nystatin (Nystop) 0 gm TOP BID [facility] Last Admin: 05/31/18 17:32 Dose: 1 applic Oxybutynin Chloride (Oxybutynin Er) 10 mg PO DAILY [facility] Last Admin: 05/31/18 07:45 Dose: 10 mg Potassium Chloride (Klor-Con M20) 20 meq PO TID [facility] Last Admin: 05/31/18 17:31 Dose: 20 meq Senna/Docusate Sodium (Senna Plus) 1 tab PO BEDTIME [facility] Last Admin: 05/30/18 20:05 Dose: 1 tab Senna/Docusate Sodium (Senna Plus) 2 tab PO DAILY [facility] Last Admin: 05/31/18 07:46 Dose: 2 tab Sodium Chloride (Saline Flush) 10 ml FLUSH ASDIRECTED PRN PRN Reason: Keep Vein Open Last Admin: 05/31/18 12:02 Dose: 10 ml Sodium Chloride (Saline Flush) 10 ml FLUSH Q12HR PRN PRN Reason: Keep Vein Open Temazepam (Restoril) 15 mg PO BEDTIME PRN PRN Reason: Insomnia Discontinued Medications Acetaminophen (Tylenol) 650 mg PO Q4H PRN PRN Reason: Pain Enoxaparin Sodium (Lovenox) 30 mg SUBCUT Q24H [facility] Last Admin: 05/30/18 11:27 Dose: 30 mg Metoprolol Tartrate (Lopressor) 2.5 mg IVPUSH ONETIME ONE Stop: 05/30/18 09:34 Last Admin: 05/30/18 09:36 Dose: 2.5 mg - Exam Quality Assessment: Supplemental Oxygen, DVT Prophylaxis General: No Acute Distress, Other (Patient woke up when greetied by name during rounding. Conversed for approximately 5 minutes then fell asleep during exam. Pleasant when awake. Knows he is at [facility]. Cannot remember dates/ month/year/president) HEENT: Pupils Equal, Pupils Reactive, EOMI, Mucous Membr. Moist/[place] Neck: Supple Lungs: Decreased Breath Sounds (throughout), Rales (bases). No: Rhonchi, Stridor, Wheezing Cardiovascular: Regular Rate, Regular Rhythm GI/Abdominal Exam: Normal Bowel Sounds, Soft, Non-Tender, No Distention (Male) Exam: Deferred Back Exam: No: Muscle Spasm Extremities: Non-Tender, Normal Capillary Refill, Pedal Edema (mild). No: Sarah 's Sign, Increased Warmth, Mottled, Pallor, Redness Peripheral Pulses: 1+: Radial (L), Radial (R), Dorsalis Pedis (L), Dorsalis Pedis (R) Skin: Warm, Dry, Other (decubitus sores on buttocks/) Wound/Incisions: Decubitis Neurological: No New Focal Deficit Psy/Mental Status: Normal Affect, Normal Mood EKG INTERPRETATION EKG Date: 05/31/18 Time: 08:33 Rhythm: NSR Rate (Beats/Min): 88 [place]: Normal P-Wave: Present QRS: Other (low voltage) ST-T: Normal QT: Normal Comparison: Other: (No significant changes noted.) - Problem List & Annotations (1) Streptococcus pneumoniae SNOMED Code(s): 07524417 Code(s): A49.1 - STREPTOCOCCAL INFECTION, UNSPECIFIED SITE Status: Acute Priority: High Current Visit: No Onset Date: ~05/29/18 Annotation/Comment: : Receiving IV Rocephin and IV Zithromax. Aggressive nebulizer treatments as below. No direct evidence of sepsis with blood cultures 2 collected. (2) Strep pharyngitis SNOMED Code(s): 68239537 Code(s): J02.0 - STREPTOCOCCAL PHARYNGITIS Status: Acute Priority: High Current Visit: No Onset Date: 05/30/18 Annotation/Comment:: IV Rocephin therapy to be initiated on admission. Influenza screen is negative (3) CHF (congestive heart failure) SNOMED Code(s): 67962143 Code(s): I50.9 - HEART FAILURE, UNSPECIFIED Status: Acute Priority: High Current Visit: No Qualifiers: Heart failure type: unspecified Heart failure chronicity: acute on chronic Qualified Code(s): I50.9 - Heart failure, unspecified Annotation/Comment:: Elevated proBNP, CHF-related changes on chest xray. Initially received 40mg IV Lasix Q8hr. Patient had good initial response with subsequent diuresis. Perez placed for accurate I&O as well as to help keep bedding dry given pt's numerous decubital sores. Dose decreased to 20mg TID to help avoid over-diuresis. (4) COPD (chronic obstructive pulmonary disease) SNOMED Code(s): 38850361 Code(s): J44.9 - CHRONIC OBSTRUCTIVE PULMONARY DISEASE, UNSPECIFIED Status : Acute Priority: High Current Visit: No Qualifiers: COPD type: COPD with acute lower respiratory infection Qualified Code(s): J44.0 - Chronic obstructive pulmonary disease with acute lower respiratory infection Annotation/Comment:: Aggressive nebulizer therapy during this hospitalization, including triple nebulizer treatments, etc.. (5) Tachycardia SNOMED Code(s): 5788604 Code(s): R00.0 - TACHYCARDIA, UNSPECIFIED Status: Acute Priority: High Current Visit: Yes Onset Date: 05/30/18 Annotation/Comment:: Improved since arrival, has been running rates in the 80s. Continuing to observe for changes. (6) Hypertension SNOMED Code(s): 23322945 Code(s): I10 - ESSENTIAL (PRIMARY) HYPERTENSION Status: Chronic Priority : Medium Current Visit: Yes Qualifiers: Hypertension type: essential hypertension Qualified Code(s): I10 - Essential (primary) hypertension Annotation/Comment:: Continuing to observe, has been stable (7) Chronic renal disease SNOMED Code(s): 864705259 Code(s): N18.9 - CHRONIC KIDNEY DISEASE, UNSPECIFIED Status: Acute Priority: Medium Current Visit: No Qualifiers: Chronic kidney disease stage: stage 3 (moderate) Qualified Code(s): N18.3 - Chronic kidney disease, stage 3 (moderate) Annotation/Comment:: Observe his renal status closely secondary to IV Lasix therapy. (8) Hyponatremia SNOMED Code(s): 90844550 Code(s): E87.1 - HYPO-OSMOLALITY AND HYPONATREMIA Status: Acute Priority : Medium Current Visit: No Onset Date: 05/30/18 Annotation/Comment:: Likely secondary to CHF. Observe for now. IV Lasix therapy as above. (9) Hypothyroidism (acquired) SNOMED Code(s): 765612134 Code(s): E03.9 - HYPOTHYROIDISM, UNSPECIFIED Status: Acute Priority: Medium Current Visit: No Onset Date: 05/30/18 Annotation/Comment:: Newly Diagnosed. Initiate low-dose Synthroid therapy. TSH should be repeated in 4 weeks. (10) Microcytic anemia SNOMED Code(s): 002010789 Code(s): D50.9 - IRON DEFICIENCY ANEMIA, UNSPECIFIED Status: Acute Priority: High Current Visit: No Onset Date: 05/30/18 Annotation/Comment: : Newly diagnosed. Low Iron at 18, low TIBC at 216. Normal Ferritin. Suggestive of anemia secondary to inflammation/chronic disease. 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) SNOMED Code(s): 171188165 Code(s): F09 - UNSP MENTAL DISORDER DUE TO KNOWN PHYSIOLOGICAL CONDITION Status: Chronic Priority: Medium Current Visit: No Annotation/Comment:: Mild increased confusion as above likely secondary to current infection with close observation during this hospitalization (14) Osteoarthritis SNOMED Code(s): 583152303 Code(s): M19.90 - UNSPECIFIED OSTEOARTHRITIS, UNSPECIFIED SITE Status: Chronic Priority: Medium Current Visit: No Qualifiers: Osteoarthritis location: multiple joints Osteoarthritis type: primary Qualified Code(s): M15.0 - Primary generalized (osteo)arthritis Annotation/Comment:: Stable by history (15) Sleep apnea SNOMED Code(s): 75597917 Code(s): G47.30 - SLEEP APNEA, UNSPECIFIED Status: Chronic Priority: Medium Current Visit: No Qualifiers: Sleep apnea type: unspecified type Qualified Code(s): G47.30 - Sleep apnea , unspecified Annotation/Comment:: Patient has been compliant with his CPAP - Problem List Review Problem List Initiated/Reviewed/Updated: Yes - My Orders Last 24 Hours: My Active Orders 05/31/18 14:45 Insert Perez Catheter [Insert Urinary Catheter] [OM.PC] Q24H 05/31/18 Breakfast Fluid Restriction [DIET] 06/01/18 14:45 Insert Perez Catheter [Insert Urinary Catheter] [OM.PC] Q24H - Assessment Assessment:: As above - Plan Plan:: Continue above plan and observe for changes. Anticipate an additional 3 or 4 days of inpatient care depending on patient's clinic course.
[2018-05-31] MEDS: Insulin Glarg,Human.Rec.Analog 100 UNIT/ML ML SUBCUT SCH (19:20)
[2018-05-31] MEDS: Latanoprost 0.005% Ophth Soln 2.5 ML Bottle EYEBOTH SCH (19:22)
[2018-05-31] MEDS: Furosemide 20 MG/2 ML VIAL IVPUSH SCH (19:23)
[2018-05-31] MEDS: Multivitamin Tab PO SCH (19:26)
[2018-05-31] MEDS: atorvaSTATin 40 MG Tab PO SCH (19:26)
[2018-06-01] MEDS: Sodium Chloride 0.9% 10 ML Syringe FLUSH PRN ×4 (02:27→23:57)
[2018-06-01] MEDS: Albuterol/Ipratropium 3.0-0.5 MG/3 ML Neb Soln NEB SCH ×5 (02:27→23:56)
[2018-06-01] MEDS: Furosemide 20 MG/2 ML VIAL IVPUSH SCH ×2 (02:27→11:08)
[2018-06-01] MEDS: hydrALAZINE 50 MG Tab PO SCH (07:46)
[2018-06-01] MEDS: Losartan 50 MG Tab PO SCH (07:47)
[2018-06-01] MEDS: Polyvinyl Alcohol 1.4% Ophth Soln 15 ML Bottle EYEBOTH SCH (07:55)
[2018-06-01] MEDS: amLODIPine 5 MG Tab PO SCH (07:56)
[2018-06-01] MEDS: Cholecalciferol (Vitamin D3) 1,000 Unit Tab PO SCH (07:56)
[2018-06-01] MEDS: Gabapentin 300 MG Cap PO SCH ×2 (07:57→17:03)
[2018-06-01] MEDS: Dextromethorphan/guaiFENesin 600-30 MG Tab.ER PO SCH (07:57)
[2018-06-01] MEDS: Metoprolol Succinate 50 MG Tab.ER PO SCH (07:57)
[2018-06-01] MEDS: Potassium Chloride 20 MEQ Tab.ER PO SCH (07:57)
[2018-06-01] MEDS: Aspirin 325 MG Tab.EC PO SCH (07:58)
[2018-06-01] MEDS: Docusate Sodium 100 MG Cap PO SCH ×4 (07:58→23:55)
[2018-06-01] MEDS: Ferrous Sulfate 325 MG Tab PO SCH (07:58)
[2018-06-01] MEDS: Insulin Lispro 100 Units/ML 3 ML Vial SUBCUT SCH ×2 (07:59)
[2018-06-01] MEDS: Oxybutynin 5 MG Tab.ER PO SCH (08:02)
[2018-06-01] MEDS: Nystatin Topical Powder 15 GM Bottle TOP SCH ×2 (08:03→17:03)
[2018-06-01] MEDS: cefTRIAXone 1 GM in Sodium Chloride 0.9% 100 ML IV SCH ×2 (09:33→23:59)
[2018-06-01] MEDS: Azithromycin 500 MG in Sodium Chloride 0.9% 250 ML IV SCH (10:01)
[2018-06-01] MEDS ORDERED: Enoxaparin 30 MG/0.3 ML Syringe SUBCUT SCH (12:00)
[2018-06-01] MEDS: Gabapentin 100 MG Cap PO SCH (15:17)
--- NOTE | 2018-06-01 17:04 | PCM.PN ---
- General Info Date of Service: 06/01/18 Admission Dx/Problem (Free Text): Patient admitted for treatment of pneumonia. Recent cough, increased lethargy, low grade temp. Pneumonia noted on chest film. Changes suggestive of CHF exacerbation also noted. Subjective Update: Patient is without complaint when asked, however he remains pleasantly confused. Noted by staff and family to be hallucinating periodically today. - Review of Systems General: Reports: Weakness, Appetite (poor) HEENT: Reports: No Symptoms Pulmonary: Reports: No Symptoms Cardiovascular: Reports: No Symptoms Gastrointestinal: Reports: No Symptoms Genitourinary: Reports: No Symptoms Musculoskeletal: Reports: No Symptoms Skin: Reports: No Symptoms Neurological: Reports: Weakness Psychiatric: Reports: No Symptoms - Patient Data Vitals - Most Recent: Last Vital Signs Temp 97.6 F 06/01/18 15:24 Pulse 90 06/01/18 15:24 Resp 18 06/01/18 15:24 BP 119/69 06/01/18 15:24 Pulse Ox 96 06/01/18 15:24 Weight - Most Recent: 266 lb 0.015 oz I&O - Last 24 Hours: Intake & Output 06/01/18 06/01/18 06/01/18 06:59 14:59 22:59 Intake Total 800 Output Total 350 Balance 450 Lab Results Last 24 Hours: Laboratory Results - last 24 hr 06/01/18 06/01/18 06/01/18 Range/Units 07:18 11:09 15:21 POC Glucose 128 H 119 H 156 H (65-110) mg/dl 06/01/18 Range/Units 16:46 POC Glucose 151 H (65-110) mg/dl Ashwin Results Last 24 Hours: Microbiology 05/30/18 15:10 Urine Culture - Final Urine, Catheterized NO GROWTH AFTER 2 DAYS 05/30/18 06:43 Aerobic Blood Culture - Preliminary Blood - Venous NO GROWTH AFTER 2 DAYS Anaerobic Blood Culture - Preliminary NO GROWTH AFTER 2 DAYS 05/30/18 07:04 Aerobic Blood Culture - Preliminary Blood - Venous - Lab Draw NO GROWTH AFTER 2 DAYS Anaerobic Blood Culture - Preliminary NO GROWTH AFTER 2 DAYS Med Orders - Current: Current Medications Acetaminophen (Tylenol) 650 mg PO Q4H PRN PRN Reason: Pain/Fever Albuterol (Proventil Neb Soln) 2.5 mg INH Q2H PRN PRN Reason: SHORTNESS OF BREATH Albuterol/Ipratropium (Duoneb 3.0-0.5 Mg/3 Ml) 3 ml NEB Q4HRRT PRN PRN Reason: Dyspnea Last Admin: 05/30/18 10:40 Dose: 3 ml Albuterol/Ipratropium (Duoneb 3.0-0.5 Mg/3 Ml) 3 ml NEB QIDRT [facility] Last Admin: 06/01/18 15:17 Dose: 3 ml Artificial Tears (Liquitears 1.4% Ophth Soln) 0 ml EYEBOTH DAILY [facility] Last Admin: 06/01/18 07:55 Dose: 1 drop Bisacodyl (Dulcolax) 5 mg PO Q12H PRN PRN Reason: Constipation Docusate Sodium (Colace) 100 mg PO QID [facility] Last Admin: 06/01/18 15:17 Dose: 100 mg Enoxaparin Sodium (Lovenox) 30 mg SUBCUT Q24H [facility] Last Admin: 06/01/18 12:25 Dose: 30 mg Gabapentin (Neurontin) 100 mg PO DAILY@1400 [facility] Last Admin: 06/01/18 15:17 Dose: 100 mg Gabapentin (Neurontin) 300 mg PO BID [facility] Last Admin: 06/01/18 07:57 Dose: 300 mg Azithromycin 500 mg/ Sodium (Chloride) 250 mls @ 250 mls/hr IV Q24H [facility] Last Admin: 06/01/18 10:01 Dose: 250 mls/hr Ceftriaxone Sodium 1 gm/ (Sodium Chloride) 100 mls @ 200 mls/hr IV Q12H [facility] Last Admin: 06/01/18 09:33 Dose: 200 mls/hr Insulin Glargine (Lantus) 20 unit SUBCUT BEDTIME [facility] Last Admin: 05/31/18 19:20 Dose: 20 unit Insulin Human Lispro (Humalog) 4 unit SUBCUT DAILY [facility] Last Admin: 06/01/18 07:59 Dose: 4 units Latanoprost (Xalatan 0.005% Ophth Soln) 0 ml EYEBOTH BEDTIME [facility] Last Admin: 05/31/18 19:22 Dose: 1 drop Metoprolol Succinate (Toprol Xl) 100 mg PO DAILY [facility] Last Admin: 06/01/18 07:57 Dose: 100 mg Nystatin (Nystop) 0 gm TOP BID [facility] Last Admin: 06/01/18 08:03 Dose: 1 applic Senna/Docusate Sodium (Senna Plus) 1 tab PO BEDTIME [facility] Last Admin: 05/31/18 19:26 Dose: 1 tab Senna/Docusate Sodium (Senna Plus) 2 tab PO DAILY [facility] Last Admin: 06/01/18 07:57 Dose: 2 tab Sodium Chloride (Saline Flush) 10 ml FLUSH ASDIRECTED PRN PRN Reason: Keep Vein Open Last Admin: 06/01/18 10:01 Dose: 10 ml Sodium Chloride (Saline Flush) 10 ml FLUSH Q12HR [facility] Temazepam (Restoril) 15 mg PO BEDTIME PRN PRN Reason: Insomnia Discontinued Medications Acetaminophen (Tylenol) 650 mg PO Q4H PRN PRN Reason: Pain Albuterol/Ipratropium (Duoneb 3.0-0.5 Mg/3 Ml) 3 ml NEB Q6HRRT [facility] Last Admin: 06/01/18 07:56 Dose: 3 ml Amlodipine Besylate (Norvasc) 10 mg PO DAILY [facility] Last Admin: 06/01/18 07:56 Dose: 10 mg Aspirin (Ecotrin) 325 mg PO DAILY [facility] Last Admin: 06/01/18 07:58 Dose: 325 mg Atorvastatin Calcium (Lipitor) 40 mg PO BEDTIME [facility] Last Admin: 05/31/18 19:26 Dose: 40 mg Cholecalciferol (Vitamin D3) 2,000 units PO DAILY [facility] Last Admin: 06/01/18 07:56 Dose: 2,000 units Enoxaparin Sodium (Lovenox) 30 mg SUBCUT Q24H [facility] Last Admin: 05/30/18 11:27 Dose: 30 mg Enoxaparin Sodium (Lovenox) 40 mg SUBCUT Q24H [facility] Last Admin: 05/31/18 12:00 Dose: 40 mg Ferrous Sulfate (Ferrous Sulfate) 325 mg PO DAILY [facility] Last Admin: 06/01/18 07:58 Dose: 325 mg Furosemide (Lasix) 40 mg IVPUSH Q8H [facility] Last Admin: 05/31/18 11:59 Dose: 40 mg Furosemide (Lasix) 20 mg IVPUSH Q8H [facility] Last Admin: 06/01/18 11:08 Dose: 20 mg Guaifenesin/Dextromethorphan (Mucinex Dm Er 600-30 Mg) 1 tab PO BID [facility] Last Admin: 06/01/18 07:57 Dose: 1 tab Hydralazine HCl (Apresoline) 100 mg PO QID [facility] Last Admin: 06/01/18 07:46 Dose: Not Given Insulin Human Lispro (Humalog) 0 unit SUBCUT BIDAC [facility]; Protocol Last Admin: 06/01/18 07:59 Dose: Not Given Losartan Potassium (Cozaar) 100 mg PO DAILY [facility] Last Admin: 06/01/18 07:47 Dose: Not Given Metoprolol Tartrate (Lopressor) 2.5 mg IVPUSH ONETIME ONE Stop: 05/30/18 09:34 Last Admin: 05/30/18 09:36 Dose: 2.5 mg Multivitamins/Minerals/Vitamin C (Tab-A-Sandra) 1 tab PO BEDTIME [facility] Last Admin: 05/31/18 19:26 Dose: 1 tab Oxybutynin Chloride (Oxybutynin Er) 10 mg PO DAILY [facility] Last Admin: 06/01/18 08:02 Dose: 10 mg Potassium Chloride (Klor-Con M20) 20 meq PO TID [facility] Last Admin: 06/01/18 07:57 Dose: 20 meq Sodium Chloride (Saline Flush) 10 ml FLUSH Q12HR PRN PRN Reason: Keep Vein Open - Exam Quality Assessment: Supplemental Oxygen, Urine Catheter, DVT Prophylaxis General: No Acute Distress HEENT: Mucous Membr. Moist/[place] Neck: Trachea Midline, No JVD Lungs: Normal Respiratory Effort, Decreased Breath Sounds Cardiovascular: Regular Rate, Regular Rhythm GI/Abdominal Exam: Soft, Non-Tender, No Distention (Male) Exam: Deferred, Other (medina catheter) Back Exam: Normal Inspection Extremities: Non-Tender Skin: Warm, Dry, Intact Neurological: No New Focal Deficit Psy/Mental Status: Normal Affect, Normal Mood - Problem List & Annotations (1) Tachycardia SNOMED Code(s): 6670106 Code(s): R00.0 - TACHYCARDIA, UNSPECIFIED Status: Acute Priority: High Current Visit: Yes Onset Date: 05/30/18 Annotation/Comment:: Improved since arrival, has been running rates in the 80s. Continuing to observe for changes. (2) Hypertension SNOMED Code(s): 80861470 Code(s): I10 - ESSENTIAL (PRIMARY) HYPERTENSION Status: Chronic Priority : Medium Current Visit: Yes Qualifiers: Hypertension type: essential hypertension Qualified Code(s): I10 - Essential (primary) hypertension Annotation/Comment:: Continuing to observe, has been stable (3) CHF (congestive heart failure) SNOMED Code(s): 45538569 Code(s): I50.9 - HEART FAILURE, UNSPECIFIED Status: Acute Priority: High Current Visit: No Qualifiers: Heart failure type: unspecified Heart failure chronicity: acute on chronic Qualified Code(s): I50.9 - Heart failure, unspecified Annotation/Comment:: Elevated proBNP, CHF-related changes on chest xray. Initially received 40mg IV Lasix Q8hr. Patient had good initial response with subsequent diuresis. [place] placed for accurate I&O as well as to help keep bedding dry given pt's numerous decubital sores. Dose decreased to 20mg TID to help avoid over-diuresis. (4) COPD (chronic obstructive pulmonary disease) SNOMED Code(s): 11400541 Code(s): J44.9 - CHRONIC OBSTRUCTIVE PULMONARY DISEASE, UNSPECIFIED Status : Acute Priority: High Current Visit: No Qualifiers: COPD type: COPD with acute lower respiratory infection Qualified Code(s): J44.0 - Chronic obstructive pulmonary disease with acute lower respiratory infection Annotation/Comment:: Aggressive nebulizer therapy during this hospitalization, including triple nebulizer treatments, etc.. (5) Chronic renal disease SNOMED Code(s): 711538966 Code(s): N18.9 - CHRONIC KIDNEY DISEASE, UNSPECIFIED Status: Acute Priority: Medium Current Visit: No Qualifiers: Chronic kidney disease stage: stage 3 (moderate) Qualified Code(s): N18.3 - Chronic kidney disease, stage 3 (moderate) Annotation/Comment:: Observe his renal status closely secondary to IV Lasix therapy. (6) Hyponatremia SNOMED Code(s): 02518959 Code(s): E87.1 - HYPO-OSMOLALITY AND HYPONATREMIA Status: Acute Priority : Medium Current Visit: No Onset Date: 05/30/18 Annotation/Comment:: Likely secondary to CHF. Observe for now. IV Lasix therapy as above. (7) Hypothyroidism (acquired) SNOMED Code(s): 005853516 Code(s): E03.9 - HYPOTHYROIDISM, UNSPECIFIED Status: Acute Priority: Medium Current Visit: No Onset Date: 05/30/18 Annotation/Comment:: Newly Diagnosed. Initiate low-dose Synthroid therapy. TSH should be repeated in 4 weeks. (8) Hypoxemia SNOMED Code(s): 870162784 Code(s): R09.02 - HYPOXEMIA Status: Acute Current Visit: No (9) Microcytic anemia SNOMED Code(s): 944024851 Code(s): D50.9 - IRON DEFICIENCY ANEMIA, UNSPECIFIED Status: Acute Priority: High Current Visit: No Onset Date: 05/30/18 Annotation/Comment: : Newly diagnosed. Low Iron at 18, low TIBC at 216. Normal Ferritin. Suggestive of anemia secondary to inflammation/chronic disease. (10) Strep pharyngitis SNOMED Code(s): 03596806 Code(s): J02.0 - STREPTOCOCCAL PHARYNGITIS Status: Acute Priority: High Current Visit: No Onset Date: 05/30/18 Annotation/Comment:: IV Rocephin therapy to be initiated on admission. Influenza screen is negative (11) Streptococcus pneumoniae SNOMED Code(s): 61119604 Code(s): A49.1 - STREPTOCOCCAL INFECTION, UNSPECIFIED SITE Status: Acute Priority: High Current Visit: No Onset Date: ~05/29/18 Annotation/Comment: : Receiving IV Rocephin and IV Zithromax. Aggressive nebulizer treatments as below. No direct evidence of sepsis with blood cultures 2 collected. 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) SNOMED Code(s): 850705871 Code(s): F09 - UNSP MENTAL DISORDER DUE TO KNOWN PHYSIOLOGICAL CONDITION Status: Chronic Priority: Medium Current Visit: No Annotation/Comment:: Mild increased confusion as above likely secondary to current infection with close observation during this hospitalization (15) Osteoarthritis SNOMED Code(s): 980915793 Code(s): M19.90 - UNSPECIFIED OSTEOARTHRITIS, UNSPECIFIED SITE Status: Chronic Priority: Medium Current Visit: No Qualifiers: Osteoarthritis location: multiple joints Osteoarthritis type: primary Qualified Code(s): M15.0 - Primary generalized (osteo)arthritis Annotation/Comment:: Stable by history (16) Sleep apnea SNOMED Code(s): 24602780 Code(s): G47.30 - SLEEP APNEA, UNSPECIFIED Status: Chronic Priority: Medium Current Visit: No Qualifiers: Sleep apnea type: unspecified type Qualified Code(s): G47.30 - Sleep apnea , unspecified Annotation/Comment:: Patient has been compliant with his CPAP - Problem List Review Problem List Initiated/Reviewed/Updated: Yes - My Orders Last 24 Hours: My Active Orders 06/01/18 11:56 Consult to Occupational Therapy [OT Evaluation and Treatment] [CONS] Routine Consult to Physical Therapy [PT Evaluation and Treatment] [CONS] Routine 06/01/18 12:00 Albuterol/Ipratropium [DuoNeb 3.0-0.5 MG/3 ML] 3 ml NEB QIDRT Enoxaparin [Lovenox] 30 mg SUBCUT Q24H 06/01/18 16:55 CRP [C-REACTIVE PROTEIN] [CHEM] Routine 06/01/18 20:00 Sodium Chloride 0.9% [Saline Flush] 10 ml FLUSH Q12HR 06/02/18 05:11 BLOOD GAS VENOUS [BG] Routine CRP [C-REACTIVE PROTEIN] [CHEM] Routine MYCOPLASMA IGM RAPID [MREF] Routine - Assessment Assessment:: As above - Plan Plan:: Continue above plan and observe for changes. Anticipate an additional 3 or 4 days of inpatient care depending on patient's clinic course. 06/01/18 Juan Luis De Jesus MD Continue antibiotics. Poor oral intake.
[2018-06-01] MEDS: Latanoprost 0.005% Ophth Soln 2.5 ML Bottle EYEBOTH SCH (23:56)
[2018-06-01] MEDS: Sodium Chloride 0.9% 10 ML Syringe FLUSH SCH (23:56)
[2018-06-02] MEDS: Insulin Glarg,Human.Rec.Analog 100 UNIT/ML ML SUBCUT SCH (00:02)
[2018-06-02 07:15] LABS: O2 DELIVERY DEVICE NASAL CANNULA
[2018-06-02] MEDS: Bisacodyl 5 MG Tab PO PRN ×2 (07:26→20:19)
[2018-06-02] MEDS: Albuterol/Ipratropium 3.0-0.5 MG/3 ML Neb Soln NEB SCH ×4 (07:26→20:22)
[2018-06-02] MEDS: Docusate Sodium 100 MG Cap PO SCH ×4 (07:26→20:19)
[2018-06-02] MEDS: Gabapentin 300 MG Cap PO SCH ×2 (07:27→17:14)
[2018-06-02] MEDS: Metoprolol Succinate 50 MG Tab.ER PO SCH (07:27)
[2018-06-02] MEDS: Sodium Chloride 0.9% 10 ML Syringe FLUSH SCH ×2 (07:28→20:20)
[2018-06-02] MEDS: Polyvinyl Alcohol 1.4% Ophth Soln 15 ML Bottle EYEBOTH SCH (07:29)
[2018-06-02] MEDS: Nystatin Topical Powder 15 GM Bottle TOP SCH ×2 (07:30→20:20)
[2018-06-02 07:58] LABS: BASE EXCESS VENOUS 3 mmol/L ((-2)-3); BICARBONATE,VENOUS 27 mmol/L (23-28); O2 SATURATION VENOUS 98 %; PCO2 VENOUS 42 mmHG (41-51); PH,VENOUS 7.42 (7.31-7.41); PO2 VENOUS 97 mmHG
[2018-06-02] MEDS: Azithromycin 500 MG in Sodium Chloride 0.9% 250 ML IV SCH (09:23)
[2018-06-02] MEDS: Insulin Lispro 100 Units/ML 3 ML Vial SUBCUT SCH (09:23)
[2018-06-02] MEDS: Sodium Chloride 0.9% 10 ML Syringe FLUSH PRN ×2 (09:25→21:37)
[2018-06-02] MEDS: cefTRIAXone 1 GM in Sodium Chloride 0.9% 100 ML IV SCH ×2 (10:38→20:30)
[2018-06-02] MEDS ORDERED: Sodium Chloride 0.9% 1,000 ML IV SCH (11:15)
[2018-06-02] MEDS: Gabapentin 100 MG Cap PO SCH (15:17)
[2018-06-02] MEDS ORDERED: Insulin Glarg,Human.Rec.Analog 100 UNIT/ML ML SUBCUT SCH (20:00)
[2018-06-02] MEDS: Latanoprost 0.005% Ophth Soln 2.5 ML Bottle EYEBOTH SCH (20:20)
[2018-06-02] MEDS ORDERED: Furosemide 20 MG/2 ML VIAL IVPUSH ONE (21:20)
--- NOTE | 2018-06-02 21:34 | PCM.PN ---
- General Info Date of Service: 06/02/18 Admission Dx/Problem (Free Text): Patient admitted for treatment of pneumonia. Recent cough, increased lethargy, low grade temp. Pneumonia noted on chest film. Changes suggestive of CHF exacerbation also noted. Subjective Update: Patient is without complaint when asked, however he remains pleasantly confused. Noted by staff and family to be hallucinating periodically today. Functional Status: Reports: Pain Controlled - Review of Systems General: Reports: Weakness HEENT: Reports: No Symptoms Pulmonary: Reports: No Symptoms Cardiovascular: Reports: No Symptoms Gastrointestinal: Reports: No Symptoms Genitourinary: Reports: Retention (medina catheter) Musculoskeletal: Reports: No Symptoms Skin: Reports: Other (skin break down-- please see nurses notes) Neurological: Reports: Weakness Psychiatric: Reports: No Symptoms - Patient Data Vitals - Most Recent: Last Vital Signs Temp 98 F 06/02/18 20:00 Pulse 85 06/02/18 20:00 Resp 20 06/02/18 20:00 BP 129/71 06/02/18 20:00 Pulse Ox 95 06/02/18 20:00 Weight - Most Recent: 266 lb 0.015 oz I&O - Last 24 Hours: Intake & Output 06/02/18 06/02/18 06/02/18 06:59 14:59 22:59 Intake Total 840 809 7175 Output Total 700 450 Balance -400 410 985 Lab Results Last 24 Hours: Laboratory Results - last 24 hr 06/02/18 06/02/18 06/02/18 Range/Units 07:10 07:10 07:10 WBC 7.3 (4.0-10.2) K/uL RBC 4.08 L (4.33-5.41) M/uL Hgb 11.6 L (13.1-16.8) g/dL Hct 34.1 L (39.0-49.0) % MCV 83.6 L (84.0-98.0) fL MCH 28.4 (28.2-33.3) pg MCHC 34.0 (31.7-36.0) g/dL RDW 14.6 H (11.2-14.1) % Plt Count 172 (150-350) K/uL Neut % (Auto) 63.8 (45.0-80.0) % Lymph % (Auto) 11.7 (10.0-50.0) % [place] % (Auto) 15.6 H (2.0-14.0) % Eos % (Auto) 8.5 H (0.0-5.0) % Baso % (Auto) 0.4 (0.0-2.0) % Neut # (Auto) 4.67 (1.40-7.00) K/uL Lymph # (Auto) 0.86 (0.50-3.50) K/uL [place] # (Auto) 1.14 H (0.00-1.00) K/uL Eos # (Auto) 0.62 H (0.00-0.50) K/uL Baso # (Auto) 0.03 (0.00-0.20) K/uL VBG pH 7.42 H (7.31-7.41) VBG pCO2 42 (41-51) mmHG VBG pO2 97 mmHG VBG HCO3 27 (23-28) mmol/L VBG Total CO2 29 mmol/L VBG O2 Saturation 98 % VBG Base Excess 3 ((-2)-3) mmol/L O2 Delivery Device Nasal cannula Sodium 135 L (136-145) mmol/L Potassium 4.2 (3.5-5.1) mmol/L Chloride 97 L (98-107) mmol/L Carbon Dioxide 27.5 (21.0-32.0) mmol/L BUN 32 H (7-18) mg/dL Creatinine 1.32 H (0.51-1.17) mg/dL Est Cr Clr Drug Dosing 45.23 mL/min Estimated GFR (MDRD) 52 mL/min Glucose 102 (74-106) mg/dL POC Glucose (65-110) mg/dl Calcium 8.8 (8.5-10.1) mg/dL Total Bilirubin 0.6 (0.2-1.0) mg/dL AST 22 (15-37) U/L ALT 20 (12-78) U/L Alkaline Phosphatase 83 (46-116) IU/L C-Reactive Protein 7.2 H (<=0.9) mg/dL NT-Pro-B Natriuret Pep 2399 H (0-125) pg/mL Total Protein 7.5 (6.4-8.2) g/dL Albumin 2.8 L (3.4-5.0) g/dL 06/02/18 Range/Units 17:10 WBC (4.0-10.2) K/uL RBC (4.33-5.41) M/uL Hgb (13.1-16.8) g/dL Hct (39.0-49.0) % MCV (84.0-98.0) fL MCH (28.2-33.3) pg MCHC (31.7-36.0) g/dL RDW (11.2-14.1) % Plt Count (150-350) K/uL Neut % (Auto) (45.0-80.0) % Lymph % (Auto) (10.0-50.0) % [place] % (Auto) (2.0-14.0) % Eos % (Auto) (0.0-5.0) % Baso % (Auto) (0.0-2.0) % Neut # (Auto) (1.40-7.00) K/uL Lymph # (Auto) (0.50-3.50) K/uL [place] # (Auto) (0.00-1.00) K/uL Eos # (Auto) (0.00-0.50) K/uL Baso # (Auto) (0.00-0.20) K/uL VBG pH (7.31-7.41) VBG pCO2 (41-51) mmHG VBG pO2 mmHG VBG HCO3 (23-28) mmol/L VBG Total CO2 mmol/L VBG O2 Saturation % VBG Base Excess ((-2)-3) mmol/L O2 Delivery Device Sodium (136-145) mmol/L Potassium (3.5-5.1) mmol/L Chloride (98-107) mmol/L Carbon Dioxide (21.0-32.0) mmol/L BUN (7-18) mg/dL Creatinine (0.51-1.17) mg/dL Est Cr Clr Drug Dosing mL/min Estimated GFR (MDRD) mL/min Glucose (74-106) mg/dL POC Glucose 116 H (65-110) mg/dl Calcium (8.5-10.1) mg/dL Total Bilirubin (0.2-1.0) mg/dL AST (15-37) U/L ALT (12-78) U/L Alkaline Phosphatase (46-116) IU/L C-Reactive Protein (<=0.9) mg/dL NT-Pro-B Natriuret Pep (0-125) pg/mL Total Protein (6.4-8.2) g/dL Albumin (3.4-5.0) g/dL [place] Results Last 24 Hours: Microbiology 05/30/18 15:10 MRSA (PCR) - Final Nasal, Unspecified 05/30/18 06:43 Aerobic Blood Culture - Preliminary Blood - Venous NO GROWTH AFTER 3 DAYS Anaerobic Blood Culture - Preliminary NO GROWTH AFTER 3 DAYS 05/30/18 07:04 Aerobic Blood Culture - Preliminary Blood - Venous - Lab Draw NO GROWTH AFTER 3 DAYS Anaerobic Blood Culture - Preliminary NO GROWTH AFTER 3 DAYS Med Orders - Current: Current Medications Acetaminophen (Tylenol) 650 mg PO Q4H PRN PRN Reason: Pain/Fever Albuterol (Proventil Neb Soln) 2.5 mg INH Q2H PRN PRN Reason: SHORTNESS OF BREATH Albuterol/Ipratropium (Duoneb 3.0-0.5 Mg/3 Ml) 3 ml NEB QIDRT [facility] Last Admin: 06/02/18 20:22 Dose: 3 ml Artificial Tears (Liquitears 1.4% Ophth Soln) 0 ml EYEBOTH DAILY [facility] Last Admin: 06/02/18 07:29 Dose: 1 drop Bisacodyl (Dulcolax) 5 mg PO Q12H PRN PRN Reason: Constipation Last Admin: 06/02/18 20:19 Dose: 5 mg Docusate Sodium (Colace) 100 mg PO QID [facility] Last Admin: 06/02/18 20:19 Dose: 100 mg Gabapentin (Neurontin) 100 mg PO DAILY@1400 [facility] Last Admin: 06/02/18 15:17 Dose: 100 mg Gabapentin (Neurontin) 300 mg PO BID [facility] Last Admin: 06/02/18 17:14 Dose: 300 mg Azithromycin 500 mg/ Sodium (Chloride) 250 mls @ 250 mls/hr IV Q24H [facility] Last Admin: 06/02/18 09:23 Dose: 250 mls/hr Ceftriaxone Sodium 1 gm/ (Sodium Chloride) 100 mls @ 200 mls/hr IV Q12H [facility] Last Admin: 06/02/18 20:30 Dose: 200 mls/hr Insulin Glargine (Lantus) 10 unit SUBCUT BEDTIME [facility] Last Admin: 06/02/18 20:21 Dose: 10 unit Latanoprost (Xalatan 0.005% Ophth Soln) 0 ml EYEBOTH BEDTIME [facility] Last Admin: 06/02/18 20:20 Dose: 1 drop Metoprolol Succinate (Toprol Xl) 100 mg PO DAILY [facility] Last Admin: 06/02/18 07:27 Dose: 100 mg Nystatin (Nystop) 0 gm TOP BID@08,1999 [facility] Last Admin: 06/02/18 20:20 Dose: 1 applic Senna/Docusate Sodium (Senna Plus) 1 tab PO BEDTIME [facility] Last Admin: 06/02/18 20:19 Dose: 1 tab Senna/Docusate Sodium (Senna Plus) 2 tab PO DAILY [facility] Last Admin: 06/02/18 07:27 Dose: 2 tab Sodium Chloride (Saline Flush) 10 ml FLUSH ASDIRECTED PRN PRN Reason: Keep Vein Open Last Admin: 06/02/18 09:25 Dose: 10 ml Sodium Chloride (Saline Flush) 10 ml FLUSH Q12HR [facility] Last Admin: 06/02/18 20:20 Dose: Not Given Temazepam (Restoril) 15 mg PO BEDTIME PRN PRN Reason: Insomnia Discontinued Medications Acetaminophen (Tylenol) 650 mg PO Q4H PRN PRN Reason: Pain Albuterol/Ipratropium (Duoneb 3.0-0.5 Mg/3 Ml) 3 ml NEB Q4HRRT PRN PRN Reason: Dyspnea Last Admin: 05/30/18 10:40 Dose: 3 ml Albuterol/Ipratropium (Duoneb 3.0-0.5 Mg/3 Ml) 3 ml NEB Q6HRRT [facility] Last Admin: 06/01/18 07:56 Dose: 3 ml Amlodipine Besylate (Norvasc) 10 mg PO DAILY [facility] Last Admin: 06/01/18 07:56 Dose: 10 mg Aspirin (Ecotrin) 325 mg PO DAILY [facility] Last Admin: 06/01/18 07:58 Dose: 325 mg Atorvastatin Calcium (Lipitor) 40 mg PO BEDTIME [facility] Last Admin: 05/31/18 19:26 Dose: 40 mg Cholecalciferol (Vitamin D3) 2,000 units PO DAILY [facility] Last Admin: 06/01/18 07:56 Dose: 2,000 units Enoxaparin Sodium (Lovenox) 30 mg SUBCUT Q24H [facility] Last Admin: 05/30/18 11:27 Dose: 30 mg Enoxaparin Sodium (Lovenox) 40 mg SUBCUT Q24H [facility] Last Admin: 05/31/18 12:00 Dose: 40 mg Enoxaparin Sodium (Lovenox) 30 mg SUBCUT Q24H [facility] Last Admin: 06/01/18 12:25 Dose: 30 mg Ferrous Sulfate (Ferrous Sulfate) 325 mg PO DAILY [facility] Last Admin: 06/01/18 07:58 Dose: 325 mg Furosemide (Lasix) 40 mg IVPUSH Q8H [facility] Last Admin: 05/31/18 11:59 Dose: 40 mg Furosemide (Lasix) 20 mg IVPUSH Q8H [facility] Last Admin: 06/01/18 11:08 Dose: 20 mg Furosemide (Lasix) 20 mg IVPUSH ONETIME ONE Stop: 06/02/18 21:21 Guaifenesin/Dextromethorphan (Mucinex Dm Er 600-30 Mg) 1 tab PO BID [facility] Last Admin: 06/01/18 07:57 Dose: 1 tab Hydralazine HCl (Apresoline) 100 mg PO QID [facility] Last Admin: 06/01/18 07:46 Dose: Not Given Sodium Chloride (Normal Saline) 1,000 mls @ 75 mls/hr IV ASDIRECTED [facility] Last Admin: 06/02/18 11:51 Dose: 75 mls/hr Insulin Glargine (Lantus) 20 unit SUBCUT BEDTIME [facility] Last Admin: 06/02/18 00:02 Dose: 20 unit Insulin Human Lispro (Humalog) 4 unit SUBCUT DAILY [facility] Last Admin: 06/02/18 09:23 Dose: 4 units Insulin Human Lispro (Humalog) 0 unit SUBCUT BIDAC [facility]; Protocol Last Admin: 06/01/18 07:59 Dose: Not Given Losartan Potassium (Cozaar) 100 mg PO DAILY [facility] Last Admin: 06/01/18 07:47 Dose: Not Given Metoprolol Tartrate (Lopressor) 2.5 mg IVPUSH ONETIME ONE Stop: 05/30/18 09:34 Last Admin: 05/30/18 09:36 Dose: 2.5 mg Multivitamins/Minerals/Vitamin C (Tab-A-Sandra) 1 tab PO BEDTIME [facility] Last Admin: 05/31/18 19:26 Dose: 1 tab Nystatin (Nystop) 0 gm TOP BID [facility] Last Admin: 06/02/18 07:30 Dose: 1 applic Oxybutynin Chloride (Oxybutynin Er) 10 mg PO DAILY [facility] Last Admin: 06/01/18 08:02 Dose: 10 mg Potassium Chloride (Klor-Con M20) 20 meq PO TID [facility] Last Admin: 06/01/18 07:57 Dose: 20 meq Sodium Chloride (Saline Flush) 10 ml FLUSH Q12HR PRN PRN Reason: Keep Vein Open - Exam Quality Assessment: Supplemental Oxygen, Urine Catheter General: Alert, Cooperative, No Acute Distress HEENT: Mucous Membr. Moist/[place] Neck: Trachea Midline, No JVD Lungs: Normal Respiratory Effort, Decreased Breath Sounds, Rhonchi Cardiovascular: Regular Rate, Regular Rhythm GI/Abdominal Exam: Soft, Non-Tender, No Distention (Male) Exam: Deferred Back Exam: Normal Inspection Extremities: Normal Inspection, Non-Tender, Pedal Edema (scant) Skin: Warm, Dry, Other (skin break down---see nurses notes and photos) Wound/Incisions: Healing Well Neurological: No New Focal Deficit Psy/Mental Status: Alert, Normal Affect, Normal Mood - Problem List & Annotations (1) Tachycardia SNOMED Code(s): 3863427 Code(s): R00.0 - TACHYCARDIA, UNSPECIFIED Status: Acute Priority: High Current Visit: Yes Onset Date: 05/30/18 Annotation/Comment:: Improved since arrival, has been running rates in the 80s. Continuing to observe for changes. (2) Hypertension SNOMED Code(s): 43550066 Code(s): I10 - ESSENTIAL (PRIMARY) HYPERTENSION Status: Chronic Priority : Medium Current Visit: Yes Qualifiers: Hypertension type: essential hypertension Qualified Code(s): I10 - Essential (primary) hypertension Annotation/Comment:: Continuing to observe, has been stable (3) CHF (congestive heart failure) SNOMED Code(s): 33604797 Code(s): I50.9 - HEART FAILURE, UNSPECIFIED Status: Acute Priority: High Current Visit: No Qualifiers: Heart failure type: unspecified Heart failure chronicity: acute on chronic Qualified Code(s): I50.9 - Heart failure, unspecified Annotation/Comment:: Elevated proBNP, CHF-related changes on chest xray. Initially received 40mg IV Lasix Q8hr. Patient had good initial response with subsequent diuresis. Medina placed for accurate I&O as well as to help keep bedding dry given pt's numerous decubital sores. Dose decreased to 20mg TID to help avoid over-diuresis. (4) COPD (chronic obstructive pulmonary disease) SNOMED Code(s): 45017047 Code(s): J44.9 - CHRONIC OBSTRUCTIVE PULMONARY DISEASE, UNSPECIFIED Status : Acute Priority: High Current Visit: No Qualifiers: COPD type: COPD with acute lower respiratory infection Qualified Code(s): J44.0 - Chronic obstructive pulmonary disease with acute lower respiratory infection Annotation/Comment:: Aggressive nebulizer therapy during this hospitalization, including triple nebulizer treatments, etc.. (5) Chronic renal disease SNOMED Code(s): 772293804 Code(s): N18.9 - CHRONIC KIDNEY DISEASE, UNSPECIFIED Status: Acute Priority: Medium Current Visit: No Qualifiers: Chronic kidney disease stage: stage 3 (moderate) Qualified Code(s): N18.3 - Chronic kidney disease, stage 3 (moderate) Annotation/Comment:: Observe his renal status closely secondary to IV Lasix therapy. (6) Hyponatremia SNOMED Code(s): 49258308 Code(s): E87.1 - HYPO-OSMOLALITY AND HYPONATREMIA Status: Acute Priority : Medium Current Visit: No Onset Date: 05/30/18 Annotation/Comment:: Likely secondary to CHF. Observe for now. IV Lasix therapy as above. (7) Hypothyroidism (acquired) SNOMED Code(s): 933985779 Code(s): E03.9 - HYPOTHYROIDISM, UNSPECIFIED Status: Acute Priority: Medium Current Visit: No Onset Date: 05/30/18 Annotation/Comment:: Newly Diagnosed. Initiate low-dose Synthroid therapy. TSH should be repeated in 4 weeks. (8) Hypoxemia SNOMED Code(s): 341120217 Code(s): R09.02 - HYPOXEMIA Status: Acute Current Visit: No (9) Microcytic anemia SNOMED Code(s): 892398784 Code(s): D50.9 - IRON DEFICIENCY ANEMIA, UNSPECIFIED Status: Acute Priority: High Current Visit: No Onset Date: 05/30/18 Annotation/Comment: : Newly diagnosed. Low Iron at 18, low TIBC at 216. Normal Ferritin. Suggestive of anemia secondary to inflammation/chronic disease. (10) Strep pharyngitis SNOMED Code(s): 38682126 Code(s): J02.0 - STREPTOCOCCAL PHARYNGITIS Status: Acute Priority: High Current Visit: No Onset Date: 05/30/18 Annotation/Comment:: IV Rocephin therapy to be initiated on admission. Influenza screen is negative (11) Streptococcus pneumoniae SNOMED Code(s): 14784996 Code(s): A49.1 - STREPTOCOCCAL INFECTION, UNSPECIFIED SITE Status: Acute Priority: High Current Visit: No Onset Date: ~05/29/18 Annotation/Comment: : Receiving IV Rocephin and IV Zithromax. Aggressive nebulizer treatments as below. No direct evidence of sepsis with blood cultures 2 collected. 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) SNOMED Code(s): 435408291 Code(s): F09 - UNSP MENTAL DISORDER DUE TO KNOWN PHYSIOLOGICAL CONDITION Status: Chronic Priority: Medium Current Visit: No Annotation/Comment:: Mild increased confusion as above likely secondary to current infection with close observation during this hospitalization (15) Osteoarthritis SNOMED Code(s): 666251868 Code(s): M19.90 - UNSPECIFIED OSTEOARTHRITIS, UNSPECIFIED SITE Status: Chronic Priority: Medium Current Visit: No Qualifiers: Osteoarthritis location: multiple joints Osteoarthritis type: primary Qualified Code(s): M15.0 - Primary generalized (osteo)arthritis Annotation/Comment:: Stable by history (16) Sleep apnea SNOMED Code(s): 47183983 Code(s): G47.30 - SLEEP APNEA, UNSPECIFIED Status: Chronic Priority: Medium Current Visit: No Qualifiers: Sleep apnea type: unspecified type Qualified Code(s): G47.30 - Sleep apnea , unspecified Annotation/Comment:: Patient has been compliant with his CPAP - Problem List Review Problem List Initiated/Reviewed/Updated: Yes - My Orders Last 24 Hours: My Active Orders 06/02/18 07:10 GABAPENTIN, SERUM [REF] Routine MYCOPLASMA IGM RAPID [MREF] Routine 06/02/18 20:00 Insulin Glarg,Human.Rec.Analog [LantUS] 10 unit SUBCUT BEDTIME 06/03/18 05:11 Chest 2V [CR] Routine BASIC METABOLIC PANEL,BMP [CHEM] Routine CBC WITH AUTO DIFF [HEME] Routine CRP [C-REACTIVE PROTEIN] [CHEM] Routine - Assessment Assessment:: As above - Plan Plan:: Continue above plan and observe for changes. Anticipate an additional 3 or 4 days of inpatient care depending on patient's clinic course. 06/01/18 Juan Luis De Jesus MD Continue antibiotics. Poor oral intake. 06/02/18 Juan Luis De Jesus MD More alert and talkative today. Creatinine elevated due to pre-renal deficit. Mild hyponatremia. IV fluids ordered and now IV lasix indicated to manage narrow fluid balance. Medically necessary to continue inpatient status, electrolyte management, monitoring kidney status, continue IV antibiotics for strep pharyngitis, and strep pneumonia. He is slowly improving. Still need medina catheter for accurate I/O. Prior to this acute illness he has been playing cards with fellow residents at [place], self propelling himself in wheelchair around the detention visiting with people, eating well, so he is not appropriate for hospice status at this time.
[2018-06-03] MEDS: cefTRIAXone 1 GM in Sodium Chloride 0.9% 100 ML IV SCH ×2 (08:48→20:31)
[2018-06-03] MEDS: Sodium Chloride 0.9% 10 ML Syringe FLUSH SCH ×2 (08:49→20:31)
[2018-06-03] MEDS: Nystatin Topical Powder 15 GM Bottle TOP SCH ×2 (08:50→19:55)
[2018-06-03] MEDS: Polyvinyl Alcohol 1.4% Ophth Soln 15 ML Bottle EYEBOTH SCH (08:50)
[2018-06-03] MEDS: Metoprolol Succinate 50 MG Tab.ER PO SCH (08:51)
[2018-06-03] MEDS: Albuterol/Ipratropium 3.0-0.5 MG/3 ML Neb Soln NEB SCH ×4 (08:51→19:54)
[2018-06-03] MEDS: Docusate Sodium 100 MG Cap PO SCH ×4 (08:56→19:54)
[2018-06-03] MEDS: Gabapentin 100 MG Cap PO SCH ×3 (08:57→17:45)
[2018-06-03] MEDS: Azithromycin 250 MG Tab PO SCH (08:57)
[2018-06-03] MEDS: Sodium Chloride 0.9% 10 ML Syringe FLUSH PRN ×2 (09:45→16:21)
--- NOTE | 2018-06-03 16:23 | PCM.PN ---
- General Info Date of Service: 06/03/18 Admission Dx/Problem (Free Text): Patient admitted for treatment of pneumonia. Recent cough, increased lethargy, low grade temp. Pneumonia noted on chest film. Changes suggestive of CHF exacerbation also noted. Subjective Update: Patient is without complaint when asked, however he remains pleasantly confused. Noted by staff and family to be hallucinating periodically today. Functional Status: Reports: Pain Controlled, Tolerating Diet - Review of Systems General: Reports: Weakness HEENT: Reports: No Symptoms Pulmonary: Reports: Cough Cardiovascular: Reports: No Symptoms Gastrointestinal: Reports: No Symptoms Genitourinary: Reports: Other (medina catheter) Musculoskeletal: Reports: No Symptoms Skin: Reports: Other (skin break down---see nurses notes and pictures) Neurological: Reports: Confusion (improving), Weakness Psychiatric: Reports: Confusion (improving) - Patient Data Vitals - Most Recent: Last Vital Signs Temp 97.7 F 06/03/18 12:00 Pulse 85 06/03/18 12:00 Resp 20 06/03/18 12:00 BP 135/71 06/03/18 12:00 Pulse Ox 95 06/03/18 12:00 Weight - Most Recent: 248 lb I&O - Last 24 Hours: Intake & Output 06/03/18 06/03/18 06/03/18 06:59 14:59 22:59 Intake Total 0 389 Output Total 900 Balance -900 389 Lab Results Last 24 Hours: Laboratory Results - last 24 hr 06/02/18 06/03/18 06/03/18 Range/Units 17:10 07:08 07:08 WBC 7.1 (4.0-10.2) K/uL RBC 4.05 L (4.33-5.41) M/uL Hgb 11.4 L (13.1-16.8) g/dL Hct 33.6 L (39.0-49.0) % MCV 83.0 L (84.0-98.0) fL MCH 28.1 L (28.2-33.3) pg MCHC 33.9 (31.7-36.0) g/dL RDW 14.7 H (11.2-14.1) % Plt Count 181 (150-350) K/uL Neut % (Auto) 56.9 (45.0-80.0) % Lymph % (Auto) 14.2 (10.0-50.0) % [place] % (Auto) 15.6 H (2.0-14.0) % Eos % (Auto) 12.9 H (0.0-5.0) % Baso % (Auto) 0.4 (0.0-2.0) % Neut # (Auto) 4.05 (1.40-7.00) K/uL Lymph # (Auto) 1.01 (0.50-3.50) K/uL [place] # (Auto) 1.11 H (0.00-1.00) K/uL Eos # (Auto) 0.92 H (0.00-0.50) K/uL Baso # (Auto) 0.03 (0.00-0.20) K/uL Sodium 137 (136-145) mmol/L Potassium 4.1 (3.5-5.1) mmol/L Chloride 99 (98-107) mmol/L Carbon Dioxide 27.2 (21.0-32.0) mmol/L BUN 29 H (7-18) mg/dL Creatinine 1.25 H (0.51-1.17) mg/dL Est Cr Clr Drug Dosing 47.76 mL/min Estimated GFR (MDRD) 56 mL/min Glucose 106 (74-106) mg/dL POC Glucose 116 H (65-110) mg/dl Calcium 8.7 (8.5-10.1) mg/dL C-Reactive Protein 6.0 H (<=0.9) mg/dL 06/03/18 Range/Units 07:31 WBC (4.0-10.2) K/uL RBC (4.33-5.41) M/uL Hgb (13.1-16.8) g/dL Hct (39.0-49.0) % MCV (84.0-98.0) fL MCH (28.2-33.3) pg MCHC (31.7-36.0) g/dL RDW (11.2-14.1) % Plt Count (150-350) K/uL Neut % (Auto) (45.0-80.0) % Lymph % (Auto) (10.0-50.0) % [place] % (Auto) (2.0-14.0) % Eos % (Auto) (0.0-5.0) % Baso % (Auto) (0.0-2.0) % Neut # (Auto) (1.40-7.00) K/uL Lymph # (Auto) (0.50-3.50) K/uL [place] # (Auto) (0.00-1.00) K/uL Eos # (Auto) (0.00-0.50) K/uL Baso # (Auto) (0.00-0.20) K/uL Sodium (136-145) mmol/L Potassium (3.5-5.1) mmol/L Chloride (98-107) mmol/L Carbon Dioxide (21.0-32.0) mmol/L BUN (7-18) mg/dL Creatinine (0.51-1.17) mg/dL Est Cr Clr Drug Dosing mL/min Estimated GFR (MDRD) mL/min Glucose (74-106) mg/dL POC Glucose 112 H (65-110) mg/dl Calcium (8.5-10.1) mg/dL C-Reactive Protein (<=0.9) mg/dL [facility] Results Last 24 Hours: Microbiology 06/03/18 11:01 Stool Occult Blood (ASHWIN) - Final Stool / Feces NEGATIVE OCCULT BLOOD 06/02/18 07:10 Mycoplasma Serology - Final Blood 05/30/18 06:43 Aerobic Blood Culture - Preliminary Blood - Venous NO GROWTH AFTER 4 DAYS Anaerobic Blood Culture - Preliminary NO GROWTH AFTER 4 DAYS 05/30/18 07:04 Aerobic Blood Culture - Preliminary Blood - Venous - Lab Draw NO GROWTH AFTER 4 DAYS Anaerobic Blood Culture - Preliminary NO GROWTH AFTER 4 DAYS Med Orders - Current: Current Medications Acetaminophen (Tylenol) 650 mg PO Q4H PRN PRN Reason: Pain/Fever Albuterol (Proventil Neb Soln) 2.5 mg INH Q2H PRN PRN Reason: SHORTNESS OF BREATH Albuterol/Ipratropium (Duoneb 3.0-0.5 Mg/3 Ml) 3 ml NEB QIDRT [facility] Last Admin: 06/03/18 12:39 Dose: 3 ml Artificial Tears (Liquitears 1.4% Ophth Soln) 0 ml EYEBOTH DAILY [facility] Last Admin: 06/03/18 08:50 Dose: 1 drop Azithromycin (Zithromax) 500 mg PO DAILY [facility] Last Admin: 06/03/18 08:57 Dose: 500 mg Bisacodyl (Dulcolax) 5 mg PO Q12H PRN PRN Reason: Constipation Last Admin: 06/02/18 20:19 Dose: 5 mg Docusate Sodium (Colace) 100 mg PO QID [facility] Last Admin: 06/03/18 12:38 Dose: 100 mg Furosemide (Lasix) 20 mg IVPUSH ONETIME ONE Stop: 06/03/18 16:31 Gabapentin (Neurontin) 100 mg PO TID [facility] Last Admin: 06/03/18 12:38 Dose: 100 mg Ceftriaxone Sodium 1 gm/ (Sodium Chloride) 100 mls @ 200 mls/hr IV Q12H [facility] Last Admin: 06/03/18 08:48 Dose: 200 mls/hr Insulin Glargine (Lantus) 10 unit SUBCUT BEDTIME [facility] Last Admin: 06/02/18 20:21 Dose: 10 unit Latanoprost (Xalatan 0.005% Ophth Soln) 0 ml EYEBOTH BEDTIME [facility] Last Admin: 06/02/18 20:20 Dose: 1 drop Metoprolol Succinate (Toprol Xl) 100 mg PO DAILY [facility] Last Admin: 06/03/18 08:51 Dose: 100 mg Nystatin (Nystop) 0 gm TOP BID@0800,1999 [facility] Last Admin: 06/03/18 08:50 Dose: 1 applic Senna/Docusate Sodium (Senna Plus) 1 tab PO BEDTIME [facility] Last Admin: 06/02/18 20:19 Dose: 1 tab Senna/Docusate Sodium (Senna Plus) 2 tab PO DAILY [facility] Last Admin: 06/03/18 08:51 Dose: 2 tab Sodium Chloride (Saline Flush) 10 ml FLUSH ASDIRECTED PRN PRN Reason: Keep Vein Open Last Admin: 06/03/18 09:45 Dose: 10 ml Sodium Chloride (Saline Flush) 10 ml FLUSH Q12HR [facility] Last Admin: 06/03/18 08:49 Dose: 10 ml Temazepam (Restoril) 15 mg PO BEDTIME PRN PRN Reason: Insomnia Discontinued Medications Acetaminophen (Tylenol) 650 mg PO Q4H PRN PRN Reason: Pain Albuterol/Ipratropium (Duoneb 3.0-0.5 Mg/3 Ml) 3 ml NEB Q4HRRT PRN PRN Reason: Dyspnea Last Admin: 05/30/18 10:40 Dose: 3 ml Albuterol/Ipratropium (Duoneb 3.0-0.5 Mg/3 Ml) 3 ml NEB Q6HRRT [facility] Last Admin: 06/01/18 07:56 Dose: 3 ml Amlodipine Besylate (Norvasc) 10 mg PO DAILY [facility] Last Admin: 06/01/18 07:56 Dose: 10 mg Aspirin (Ecotrin) 325 mg PO DAILY [facility] Last Admin: 06/01/18 07:58 Dose: 325 mg Atorvastatin Calcium (Lipitor) 40 mg PO BEDTIME [facility] Last Admin: 05/31/18 19:26 Dose: 40 mg Cholecalciferol (Vitamin D3) 2,000 units PO DAILY [facility] Last Admin: 06/01/18 07:56 Dose: 2,000 units Enoxaparin Sodium (Lovenox) 30 mg SUBCUT Q24H [facility] Last Admin: 05/30/18 11:27 Dose: 30 mg Enoxaparin Sodium (Lovenox) 40 mg SUBCUT Q24H [facility] Last Admin: 05/31/18 12:00 Dose: 40 mg Enoxaparin Sodium (Lovenox) 30 mg SUBCUT Q24H [facility] Last Admin: 06/01/18 12:25 Dose: 30 mg Ferrous Sulfate (Ferrous Sulfate) 325 mg PO DAILY [facility] Last Admin: 06/01/18 07:58 Dose: 325 mg Furosemide (Lasix) 40 mg IVPUSH Q8H [facility] Last Admin: 05/31/18 11:59 Dose: 40 mg Furosemide (Lasix) 20 mg IVPUSH Q8H [facility] Last Admin: 06/01/18 11:08 Dose: 20 mg Furosemide (Lasix) 20 mg IVPUSH ONETIME ONE Stop: 06/02/18 21:21 Last Admin: 06/02/18 21:37 Dose: 20 mg Gabapentin (Neurontin) 100 mg PO DAILY@1400 [facility] Last Admin: 06/02/18 15:17 Dose: 100 mg Gabapentin (Neurontin) 300 mg PO BID [facility] Last Admin: 06/02/18 17:14 Dose: 300 mg Guaifenesin/Dextromethorphan (Mucinex Dm Er 600-30 Mg) 1 tab PO BID [facility] Last Admin: 06/01/18 07:57 Dose: 1 tab Hydralazine HCl (Apresoline) 100 mg PO QID [facility] Last Admin: 06/01/18 07:46 Dose: Not Given Azithromycin 500 mg/ Sodium (Chloride) 250 mls @ 250 mls/hr IV Q24H [facility] Last Admin: 06/02/18 09:23 Dose: 250 mls/hr Sodium Chloride (Normal Saline) 1,000 mls @ 75 mls/hr IV ASDIRECTED [facility] Last Admin: 06/02/18 11:51 Dose: 75 mls/hr Insulin Glargine (Lantus) 20 unit SUBCUT BEDTIME [facility] Last Admin: 06/02/18 00:02 Dose: 20 unit Insulin Human Lispro (Humalog) 4 unit SUBCUT DAILY [facility] Last Admin: 06/02/18 09:23 Dose: 4 units Insulin Human Lispro (Humalog) 0 unit SUBCUT BIDAC [facility]; Protocol Last Admin: 06/01/18 07:59 Dose: Not Given Losartan Potassium (Cozaar) 100 mg PO DAILY [facility] Last Admin: 06/01/18 07:47 Dose: Not Given Metoprolol Tartrate (Lopressor) 2.5 mg IVPUSH ONETIME ONE Stop: 05/30/18 09:34 Last Admin: 05/30/18 09:36 Dose: 2.5 mg Multivitamins/Minerals/Vitamin C (Tab-A-Sandra) 1 tab PO BEDTIME [facility] Last Admin: 05/31/18 19:26 Dose: 1 tab Nystatin (Nystop) 0 gm TOP BID [facility] Last Admin: 06/02/18 07:30 Dose: 1 applic Oxybutynin Chloride (Oxybutynin Er) 10 mg PO DAILY [facility] Last Admin: 06/01/18 08:02 Dose: 10 mg Potassium Chloride (Klor-Con M20) 20 meq PO TID [facility] Last Admin: 06/01/18 07:57 Dose: 20 meq Sodium Chloride (Saline Flush) 10 ml FLUSH Q12HR PRN PRN Reason: Keep Vein Open - Exam Quality Assessment: Supplemental Oxygen, Urine Catheter General: Alert, Cooperative, No Acute Distress HEENT: Mucous Membr. Moist/[place] Neck: Trachea Midline, No JVD Lungs: Normal Respiratory Effort, Decreased Breath Sounds, Rhonchi, Wheezing Cardiovascular: Regular Rate, Regular Rhythm GI/Abdominal Exam: Soft, Non-Tender, No Distention (Male) Exam: Deferred Back Exam: Normal Inspection Extremities: Normal Inspection, Non-Tender, Pedal Edema (scant) Skin: Warm, Dry, Other (skin break down----see nurses notes and photos) Neurological: No New Focal Deficit Psy/Mental Status: Alert, Normal Affect, Normal Mood - Problem List & Annotations (1) Streptococcus pneumoniae SNOMED Code(s): 08360021 Code(s): A49.1 - STREPTOCOCCAL INFECTION, UNSPECIFIED SITE Status: Acute Priority: High Current Visit: No Onset Date: ~05/29/18 Annotation/Comment: : Receiving IV Rocephin and IV Zithromax. Aggressive nebulizer treatments as below. No direct evidence of sepsis with blood cultures 2 collected. (2) Tachycardia SNOMED Code(s): 1416278 Code(s): R00.0 - TACHYCARDIA, UNSPECIFIED Status: Acute Priority: High Current Visit: Yes Onset Date: 05/30/18 Annotation/Comment:: Improved since arrival, has been running rates in the 80s. Continuing to observe for changes. (3) Hypertension SNOMED Code(s): 92009096 Code(s): I10 - ESSENTIAL (PRIMARY) HYPERTENSION Status: Chronic Priority : Medium Current Visit: Yes Qualifiers: Hypertension type: essential hypertension Qualified Code(s): I10 - Essential (primary) hypertension Annotation/Comment:: Continuing to observe, has been stable (4) CHF (congestive heart failure) SNOMED Code(s): 66472700 Code(s): I50.9 - HEART FAILURE, UNSPECIFIED Status: Acute Priority: High Current Visit: No Qualifiers: Heart failure type: unspecified Heart failure chronicity: acute on chronic Qualified Code(s): I50.9 - Heart failure, unspecified Annotation/Comment:: Medina placed for accurate I&O as well as to help keep bedding dry given pt's numerous decubital sores. 06/03/18 Required IV fluid replacement, then IV lasix for narrow clinical fluid balance. Need to continue to monitor renal status, electrolyte status, fluid status. Medina catheter still medically necessary for accurate I/O. and to keep skin dry with the skin break down. This requires continued inpatient status and prolonging patient stay in the hospital. (5) COPD (chronic obstructive pulmonary disease) SNOMED Code(s): 10022228 Code(s): J44.9 - CHRONIC OBSTRUCTIVE PULMONARY DISEASE, UNSPECIFIED Status : Acute Priority: High Current Visit: No Qualifiers: COPD type: COPD with acute lower respiratory infection Qualified Code(s): J44.0 - Chronic obstructive pulmonary disease with acute lower respiratory infection Annotation/Comment:: . (6) Chronic renal disease SNOMED Code(s): 315794880 Code(s): N18.9 - CHRONIC KIDNEY DISEASE, UNSPECIFIED Status: Acute Priority: Medium Current Visit: Yes Qualifiers: Chronic kidney disease stage: stage 3 (moderate) Qualified Code(s): N18.3 - Chronic kidney disease, stage 3 (moderate) Annotation/Comment:: Observe his renal status closely secondary to IV Lasix therapy. (7) Hypoxemia SNOMED Code(s): 673466866 Code(s): R09.02 - HYPOXEMIA Status: Acute Priority: High Current Visit : Yes (8) Strep pharyngitis SNOMED Code(s): 11745269 Code(s): J02.0 - STREPTOCOCCAL PHARYNGITIS Status: Acute Priority: High Current Visit: No Onset Date: 05/30/18 Annotation/Comment:: IV Rocephin therapy to be initiated on admission. Influenza screen is negative (9) Hyponatremia SNOMED Code(s): 42663966 Code(s): E87.1 - HYPO-OSMOLALITY AND HYPONATREMIA Status: Acute Priority : Medium Current Visit: Yes Onset Date: 05/30/18 Annotation/Comment:: 02/11 Corrected with IV normal saline. Continue to monitor since he is still requiring IV lasix on a dose per dose basis after assessing his clinical status , lab results, and follow up chest x-ray. (10) Hypothyroidism (acquired) SNOMED Code(s): 250028781 Code(s): E03.9 - HYPOTHYROIDISM, UNSPECIFIED Status: Acute Priority: Medium Current Visit: Yes Onset Date: 05/30/18 Annotation/Comment:: Newly Diagnosed. Initiate low-dose Synthroid therapy. TSH should be repeated in 4 weeks. (11) Microcytic anemia SNOMED Code(s): 204970738 Code(s): D50.9 - IRON DEFICIENCY ANEMIA, UNSPECIFIED Status: Acute Priority: Low Current Visit: No Onset Date: 01/05/19 Annotation/Comment:: Newly diagnosed. Low Iron at 18, low TIBC at 216. Normal Ferritin. Suggestive of anemia secondary to inflammation/chronic disease. 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) SNOMED Code(s): 729269718 Code(s): F09 - UNSP MENTAL DISORDER DUE TO KNOWN PHYSIOLOGICAL CONDITION Status: Chronic Priority: Medium Current Visit: No Annotation/Comment:: Mild increased confusion as above likely secondary to current infection with close observation during this hospitalization (15) Osteoarthritis SNOMED Code(s): 425693156 Code(s): M19.90 - UNSPECIFIED OSTEOARTHRITIS, UNSPECIFIED SITE Status: Chronic Priority: Medium Current Visit: No Qualifiers: Osteoarthritis location: multiple joints Osteoarthritis type: primary Qualified Code(s): M15.0 - Primary generalized (osteo)arthritis Annotation/Comment:: Stable by history (16) Sleep apnea SNOMED Code(s): 93096106 Code(s): G47.30 - SLEEP APNEA, UNSPECIFIED Status: Chronic Priority: Medium Current Visit: No Qualifiers: Sleep apnea type: unspecified type Qualified Code(s): G47.30 - Sleep apnea , unspecified Annotation/Comment:: Patient has been compliant with his CPAP (17) Streptococcal pneumonia SNOMED Code(s): 38679703 Code(s): J15.4 - PNEUMONIA DUE TO OTHER STREPTOCOCCI Status: Acute Priority: High Current Visit: Yes - Problem List Review Problem List Initiated/Reviewed/Updated: Yes - My Orders Last 24 Hours: My Active Orders 06/02/18 20:00 Insulin Glarg,Human.Rec.Analog [LantUS] 10 unit SUBCUT BEDTIME 06/03/18 05:11 Chest 2V [CR] Routine 06/03/18 08:00 Azithromycin [Zithromax] 500 mg PO DAILY Gabapentin [Neurontin] 100 mg PO TID 06/03/18 16:30 Furosemide [Lasix] 20 mg IVPUSH ONETIME ONE 06/04/18 05:11 CBC WITH AUTO DIFF [HEME] Routine CMP [COMPREHENSIVE METABOLIC PN,CMP] [CHEM] Routine CRP [C-REACTIVE PROTEIN] [CHEM] Routine PRO B-TYPE NATRIUR PEPT,BNPPRO [CHEM] Routine - Assessment Assessment:: As above - Plan Plan:: Continue above plan and observe for changes. Anticipate an additional 3 or 4 days of inpatient care depending on patient's clinic course. 06/01/18 Juan Luis De Jesus MD Continue antibiotics. Poor oral intake. 06/02/18 Juan Luis De Jesus MD More alert and talkative today. Creatinine elevated due to pre-renal deficit. Mild hyponatremia. IV fluids ordered and now IV lasix indicated to manage narrow fluid balance. Medically necessary to continue inpatient status, electrolyte management, monitoring kidney status, continue IV antibiotics for strep pharyngitis, and strep pneumonia. He is slowly improving. Still need medina catheter for accurate I/O. Prior to this acute illness he has been playing cards with fellow residents at [facility], self propelling himself in wheelchair around the long-term visiting with people, eating well, so he is not appropriate for hospice status at this time. 06/03/18 Continues to make slow clinical improvement. Creatinine and sodium level improved today after IV fluid replacement and clinical judicious IV lasix. Improved oral intake today. Medically necessary to continue inpatient status for electrolyte management, monitoring kidney status, continue IV antibiotics for strep pharyngitis and strep pheumonia. Still need medina catheter for accurate I/O and to protect skin from urine since he already has skin break- down.
[2018-06-03] MEDS ORDERED: Furosemide 20 MG/2 ML VIAL IVPUSH ONE (16:30)
[2018-06-03] MEDS: Latanoprost 0.005% Ophth Soln 2.5 ML Bottle EYEBOTH SCH (19:55)
[2018-06-03] MEDS ORDERED: Insulin Glarg,Human.Rec.Analog 100 UNIT/ML ML SUBCUT SCH (20:00)
[2018-06-03] MEDS ORDERED: Losartan 50 MG Tab PO SCH (20:00)
[2018-06-04] MEDS ORDERED: Furosemide 20 MG/2 ML VIAL IVPUSH SCH (06:00)
[2018-06-04] MEDS: Sodium Chloride 0.9% 10 ML Syringe FLUSH SCH ×2 (06:10→08:53)
[2018-06-04 07:58] LABS: CHLORIDE,CL 97 mmol/L (98-107); SODIUM,NA 135 mmol/L (136-145)
[2018-06-04] MEDS: Nystatin Topical Powder 15 GM Bottle TOP SCH (08:52)
[2018-06-04] MEDS: Polyvinyl Alcohol 1.4% Ophth Soln 15 ML Bottle EYEBOTH SCH (08:52)
[2018-06-04] MEDS: Docusate Sodium 100 MG Cap PO SCH ×2 (08:52→11:38)
[2018-06-04] MEDS: Albuterol/Ipratropium 3.0-0.5 MG/3 ML Neb Soln NEB SCH ×2 (08:52→11:38)
[2018-06-04] MEDS: Gabapentin 100 MG Cap PO SCH ×2 (08:52→11:38)
[2018-06-04] MEDS: Metoprolol Succinate 50 MG Tab.ER PO SCH (08:53)
[2018-06-04] MEDS: cefTRIAXone 1 GM in Sodium Chloride 0.9% 100 ML IV SCH (08:54)
[2018-06-04] MEDS: Azithromycin 250 MG Tab PO SCH (08:54)
[2018-06-04 12:45] VITALS: BP 144/76
--- NOTE | 2018-06-04 14:08 | PCM.PN ---
- General Info Date of Service: 06/04/18 Admission Dx/Problem (Free Text): Patient admitted for treatment of pneumonia. Recent cough, increased lethargy, low grade temp. Pneumonia noted on chest film. Changes suggestive of CHF exacerbation also noted. Subjective Update: Patient is without complaint when asked, however he remains pleasantly confused. Noted by staff and family to be hallucinating periodically today. Functional Status: Reports: Pain Controlled, Tolerating Diet - Review of Systems General: Reports: Weakness HEENT: Reports: No Symptoms Pulmonary: Reports: No Symptoms Cardiovascular: Reports: No Symptoms Gastrointestinal: Reports: No Symptoms Genitourinary: Reports: Other (medina catheter) Musculoskeletal: Reports: No Symptoms Skin: Reports: Other (skin break down see nurses notes and photos) Neurological: Reports: Weakness Psychiatric: Reports: No Symptoms - Patient Data Vitals - Most Recent: Last Vital Signs Temp 98.4 F 06/04/18 12:00 Pulse 97 06/04/18 12:00 Resp 19 06/04/18 12:00 BP 144/76 H 06/04/18 12:00 Pulse Ox 92 L 06/04/18 12:00 Weight - Most Recent: 241 lb 8 oz I&O - Last 24 Hours: Intake & Output 06/03/18 06/04/18 06/04/18 22:59 06:59 14:59 Intake Total 820 100 340 Output Total 1225 500 Balance -405 -400 340 Lab Results Last 24 Hours: Laboratory Results - last 24 hr 06/03/18 06/04/18 06/04/18 Range/Units 16:48 06:55 06:55 WBC 7.9 (4.0-10.2) K/uL RBC 4.07 L (4.33-5.41) M/uL Hgb 11.5 L (13.1-16.8) g/dL Hct 33.4 L (39.0-49.0) % MCV 82.1 L (84.0-98.0) fL MCH 28.3 (28.2-33.3) pg MCHC 34.4 (31.7-36.0) g/dL RDW 14.6 H (11.2-14.1) % Plt Count 175 (150-350) K/uL Neut % (Auto) 67.7 (45.0-80.0) % Lymph % (Auto) 10.9 (10.0-50.0) % Dare % (Auto) 13.0 (2.0-14.0) % Eos % (Auto) 8.3 H (0.0-5.0) % Baso % (Auto) 0.1 (0.0-2.0) % Neut # (Auto) 5.32 (1.40-7.00) K/uL Lymph # (Auto) 0.86 (0.50-3.50) K/uL Dare # (Auto) 1.02 H (0.00-1.00) K/uL Eos # (Auto) 0.65 H (0.00-0.50) K/uL Baso # (Auto) 0.01 (0.00-0.20) K/uL Sodium 135 L (136-145) mmol/L Potassium 3.9 (3.5-5.1) mmol/L Chloride 97 L (98-107) mmol/L Carbon Dioxide 27.4 (21.0-32.0) mmol/L BUN 23 H (7-18) mg/dL Creatinine 1.15 (0.51-1.17) mg/dL Est Cr Clr Drug Dosing 51.91 mL/min Estimated GFR (MDRD) > 60 mL/min Glucose 97 (74-106) mg/dL POC Glucose 98 (65-110) mg/dl Calcium 8.9 (8.5-10.1) mg/dL Total Bilirubin 0.5 (0.2-1.0) mg/dL AST 16 (15-37) U/L ALT 22 (12-78) U/L Alkaline Phosphatase 87 (46-116) IU/L C-Reactive Protein 5.8 H (<=0.9) mg/dL NT-Pro-B Natriuret Pep 1964 H (0-125) pg/mL Total Protein 7.2 (6.4-8.2) g/dL Albumin 2.8 L (3.4-5.0) g/dL 06/04/18 Range/Units 07:13 WBC (4.0-10.2) K/uL RBC (4.33-5.41) M/uL Hgb (13.1-16.8) g/dL Hct (39.0-49.0) % MCV (84.0-98.0) fL MCH (28.2-33.3) pg MCHC (31.7-36.0) g/dL RDW (11.2-14.1) % Plt Count (150-350) K/uL Neut % (Auto) (45.0-80.0) % Lymph % (Auto) (10.0-50.0) % Dare % (Auto) (2.0-14.0) % Eos % (Auto) (0.0-5.0) % Baso % (Auto) (0.0-2.0) % Neut # (Auto) (1.40-7.00) K/uL Lymph # (Auto) (0.50-3.50) K/uL Dare # (Auto) (0.00-1.00) K/uL Eos # (Auto) (0.00-0.50) K/uL Baso # (Auto) (0.00-0.20) K/uL Sodium (136-145) mmol/L Potassium (3.5-5.1) mmol/L Chloride (98-107) mmol/L Carbon Dioxide (21.0-32.0) mmol/L BUN (7-18) mg/dL Creatinine (0.51-1.17) mg/dL Est Cr Clr Drug Dosing mL/min Estimated GFR (MDRD) mL/min Glucose (74-106) mg/dL POC Glucose 100 (65-110) mg/dl Calcium (8.5-10.1) mg/dL Total Bilirubin (0.2-1.0) mg/dL AST (15-37) U/L ALT (12-78) U/L Alkaline Phosphatase (46-116) IU/L C-Reactive Protein (<=0.9) mg/dL NT-Pro-B Natriuret Pep (0-125) pg/mL Total Protein (6.4-8.2) g/dL Albumin (3.4-5.0) g/dL Ashwin Results Last 24 Hours: Microbiology 05/30/18 06:43 Aerobic Blood Culture - Final Blood - Venous NO GROWTH AFTER 5 DAYS Anaerobic Blood Culture - Final NO GROWTH AFTER 5 DAYS 05/30/18 07:04 Aerobic Blood Culture - Final Blood - Venous - Lab Draw NO GROWTH AFTER 5 DAYS Anaerobic Blood Culture - Final NO GROWTH AFTER 5 DAYS 06/03/18 11:01 Stool Occult Blood (ASHWIN) - Final Stool / Feces NEGATIVE OCCULT BLOOD 06/02/18 07:10 Mycoplasma Serology - Final Blood Med Orders - Current: Current Medications Acetaminophen (Tylenol) 650 mg PO Q4H PRN PRN Reason: Pain/Fever Albuterol (Proventil Neb Soln) 2.5 mg INH Q2H PRN PRN Reason: SHORTNESS OF BREATH Albuterol/Ipratropium (Duoneb 3.0-0.5 Mg/3 Ml) 3 ml NEB QIDRT [facility] Last Admin: 06/04/18 11:38 Dose: 3 ml Artificial Tears (Liquitears 1.4% Ophth Soln) 0 ml EYEBOTH DAILY [facility] Last Admin: 06/04/18 08:52 Dose: 1 drop Bisacodyl (Dulcolax) 5 mg PO Q12H PRN PRN Reason: Constipation Last Admin: 06/02/18 20:19 Dose: 5 mg Docusate Sodium (Colace) 100 mg PO QID [facility] Last Admin: 06/04/18 11:38 Dose: Not Given Furosemide (Lasix) 20 mg IVPUSH DAILY@0600 [facility] Last Admin: 06/04/18 06:10 Dose: 20 mg Gabapentin (Neurontin) 100 mg PO TID [facility] Last Admin: 06/04/18 11:38 Dose: 100 mg Ceftriaxone Sodium 1 gm/ (Sodium Chloride) 100 mls @ 200 mls/hr IV Q12H [facility] Last Admin: 06/04/18 08:54 Dose: 200 mls/hr Insulin Glargine (Lantus) 5 unit SUBCUT BEDTIME [facility] Last Admin: 06/03/18 19:54 Dose: 5 units Latanoprost (Xalatan 0.005% Ophth Soln) 0 ml EYEBOTH BEDTIME [facility] Last Admin: 06/03/18 19:55 Dose: 1 drop Losartan Potassium (Cozaar) 25 mg PO BEDTIME [facility] Last Admin: 06/03/18 19:53 Dose: 25 mg Metoprolol Succinate (Toprol Xl) 100 mg PO DAILY [facility] Last Admin: 06/04/18 08:53 Dose: 100 mg Nystatin (Nystop) 0 gm TOP BID@0800,2000 [facility] Last Admin: 06/04/18 08:52 Dose: 1 applic Senna/Docusate Sodium (Senna Plus) 1 tab PO BEDTIME [facility] Last Admin: 06/03/18 19:53 Dose: 1 tab Senna/Docusate Sodium (Senna Plus) 2 tab PO DAILY [facility] Last Admin: 06/04/18 08:53 Dose: 2 tab Sodium Chloride (Saline Flush) 10 ml FLUSH ASDIRECTED PRN PRN Reason: Keep Vein Open Last Admin: 06/03/18 16:21 Dose: 10 ml Sodium Chloride (Saline Flush) 10 ml FLUSH Q12HR [facility] Last Admin: 06/04/18 08:53 Dose: 10 ml Temazepam (Restoril) 15 mg PO BEDTIME PRN PRN Reason: Insomnia Last Admin: 06/04/18 00:22 Dose: 15 mg Discontinued Medications Acetaminophen (Tylenol) 650 mg PO Q4H PRN PRN Reason: Pain Albuterol/Ipratropium (Duoneb 3.0-0.5 Mg/3 Ml) 3 ml NEB Q4HRRT PRN PRN Reason: Dyspnea Last Admin: 05/30/18 10:40 Dose: 3 ml Albuterol/Ipratropium (Duoneb 3.0-0.5 Mg/3 Ml) 3 ml NEB Q6HRRT [facility] Last Admin: 06/01/18 07:56 Dose: 3 ml Amlodipine Besylate (Norvasc) 10 mg PO DAILY [facility] Last Admin: 06/01/18 07:56 Dose: 10 mg Aspirin (Ecotrin) 325 mg PO DAILY [facility] Last Admin: 06/01/18 07:58 Dose: 325 mg Atorvastatin Calcium (Lipitor) 40 mg PO BEDTIME [facility] Last Admin: 05/31/18 19:26 Dose: 40 mg Azithromycin (Zithromax) 500 mg PO DAILY [facility] Last Admin: 06/04/18 08:54 Dose: 500 mg Cholecalciferol (Vitamin D3) 2,000 units PO DAILY [facility] Last Admin: 06/01/18 07:56 Dose: 2,000 units Enoxaparin Sodium (Lovenox) 30 mg SUBCUT Q24H [facility] Last Admin: 05/30/18 11:27 Dose: 30 mg Enoxaparin Sodium (Lovenox) 40 mg SUBCUT Q24H [facility] Last Admin: 05/31/18 12:00 Dose: 40 mg Enoxaparin Sodium (Lovenox) 30 mg SUBCUT Q24H [facility] Last Admin: 06/01/18 12:25 Dose: 30 mg Ferrous Sulfate (Ferrous Sulfate) 325 mg PO DAILY [facility] Last Admin: 06/01/18 07:58 Dose: 325 mg Furosemide (Lasix) 40 mg IVPUSH Q8H [facility] Last Admin: 05/31/18 11:59 Dose: 40 mg Furosemide (Lasix) 20 mg IVPUSH Q8H [facility] Last Admin: 06/01/18 11:08 Dose: 20 mg Furosemide (Lasix) 20 mg IVPUSH ONETIME ONE Stop: 06/02/18 21:21 Last Admin: 06/02/18 21:37 Dose: 20 mg Furosemide (Lasix) 20 mg IVPUSH ONETIME ONE Stop: 06/03/18 16:31 Last Admin: 06/03/18 16:21 Dose: 20 mg Gabapentin (Neurontin) 100 mg PO DAILY@1400 [facility] Last Admin: 06/02/18 15:17 Dose: 100 mg Gabapentin (Neurontin) 300 mg PO BID [facility] Last Admin: 06/02/18 17:14 Dose: 300 mg Guaifenesin/Dextromethorphan (Mucinex Dm Er 600-30 Mg) 1 tab PO BID [facility] Last Admin: 06/01/18 07:57 Dose: 1 tab Hydralazine HCl (Apresoline) 100 mg PO QID [facility] Last Admin: 06/01/18 07:46 Dose: Not Given Azithromycin 500 mg/ Sodium (Chloride) 250 mls @ 250 mls/hr IV Q24H [facility] Last Admin: 06/02/18 09:23 Dose: 250 mls/hr Sodium Chloride (Normal Saline) 1,000 mls @ 75 mls/hr IV ASDIRECTED [facility] Last Admin: 06/02/18 11:51 Dose: 75 mls/hr Insulin Glargine (Lantus) 20 unit SUBCUT BEDTIME [facility] Last Admin: 06/02/18 00:02 Dose: 20 unit Insulin Glargine (Lantus) 10 unit SUBCUT BEDTIME [facility] Last Admin: 06/02/18 20:21 Dose: 10 unit Insulin Human Lispro (Humalog) 4 unit SUBCUT DAILY [facility] Last Admin: 06/02/18 09:23 Dose: 4 units Insulin Human Lispro (Humalog) 0 unit SUBCUT BIDAC [facility]; Protocol Last Admin: 06/01/18 07:59 Dose: Not Given Losartan Potassium (Cozaar) 100 mg PO DAILY [facility] Last Admin: 06/01/18 07:47 Dose: Not Given Metoprolol Tartrate (Lopressor) 2.5 mg IVPUSH ONETIME ONE Stop: 05/30/18 09:34 Last Admin: 05/30/18 09:36 Dose: 2.5 mg Multivitamins/Minerals/Vitamin C (Tab-A-Sandra) 1 tab PO BEDTIME [facility] Last Admin: 05/31/18 19:26 Dose: 1 tab Nystatin (Nystop) 0 gm TOP BID [facility] Last Admin: 06/02/18 07:30 Dose: 1 applic Oxybutynin Chloride (Oxybutynin Er) 10 mg PO DAILY [facility] Last Admin: 06/01/18 08:02 Dose: 10 mg Potassium Chloride (Klor-Con M20) 20 meq PO TID [facility] Last Admin: 06/01/18 07:57 Dose: 20 meq Sodium Chloride (Saline Flush) 10 ml FLUSH Q12HR PRN PRN Reason: Keep Vein Open - Exam Quality Assessment: Supplemental Oxygen, Urine Catheter General: Alert, Cooperative, No Acute Distress HEENT: Mucous Membr. Moist/[place] Neck: Trachea Midline, No JVD Lungs: Normal Respiratory Effort, Decreased Breath Sounds, Rales, Wheezing Cardiovascular: Regular Rate, Regular Rhythm GI/Abdominal Exam: Soft, Non-Tender, No Distention (Male) Exam: Deferred, Other (medina catheter) Back Exam: Normal Inspection Extremities: Normal Inspection, Non-Tender, Pedal Edema (minimal) Skin: Warm, Dry, Other (skin break down----see nurses notes and photos) Neurological: No New Focal Deficit Psy/Mental Status: Alert, Normal Affect, Normal Mood - Problem List & Annotations (1) Streptococcal pneumonia SNOMED Code(s): 39947747 Code(s): J15.4 - PNEUMONIA DUE TO OTHER STREPTOCOCCI Status: Acute Priority: High Current Visit: Yes (2) Streptococcus pneumoniae SNOMED Code(s): 07086059 Code(s): A49.1 - STREPTOCOCCAL INFECTION, UNSPECIFIED SITE Status: Acute Priority: High Current Visit: No Onset Date: ~05/29/18 (3) Hypertension SNOMED Code(s): 26121711 Code(s): I10 - ESSENTIAL (PRIMARY) HYPERTENSION Status: Chronic Priority : Medium Current Visit: Yes Qualifiers: Hypertension type: essential hypertension Qualified Code(s): I10 - Essential (primary) hypertension Annotation/Comment:: Continuing to observe, has been stable (4) CHF (congestive heart failure) SNOMED Code(s): 82989235 Code(s): I50.9 - HEART FAILURE, UNSPECIFIED Status: Acute Priority: High Current Visit: No Qualifiers: Heart failure type: unspecified Heart failure chronicity: acute on chronic Qualified Code(s): I50.9 - Heart failure, unspecified Annotation/Comment:: Medina placed for accurate I&O as well as to help keep bedding dry given pt's numerous decubital sores. 06/03/18 Required IV fluid replacement, then IV lasix for narrow clinical fluid balance. Need to continue to monitor renal status, electrolyte status, fluid status. Medina catheter still medically necessary for accurate I/O. and to keep skin dry with the skin break down. This requires continued inpatient status and prolonging patient stay in the hospital. (5) COPD (chronic obstructive pulmonary disease) SNOMED Code(s): 67534049 Code(s): J44.9 - CHRONIC OBSTRUCTIVE PULMONARY DISEASE, UNSPECIFIED Status : Acute Priority: High Current Visit: No Qualifiers: COPD type: COPD with acute lower respiratory infection Qualified Code(s): J44.0 - Chronic obstructive pulmonary disease with acute lower respiratory infection Annotation/Comment:: . (6) Chronic renal disease SNOMED Code(s): 825235040 Code(s): N18.9 - CHRONIC KIDNEY DISEASE, UNSPECIFIED Status: Acute Priority: Medium Current Visit: Yes Qualifiers: Chronic kidney disease stage: stage 3 (moderate) Qualified Code(s): N18.3 - Chronic kidney disease, stage 3 (moderate) (7) Hypoxemia SNOMED Code(s): 385642886 Code(s): R09.02 - HYPOXEMIA Status: Acute Priority: High Current Visit : Yes (8) Strep pharyngitis SNOMED Code(s): 22275831 Code(s): J02.0 - STREPTOCOCCAL PHARYNGITIS Status: Acute Priority: High Current Visit: No Onset Date: 05/30/18 Annotation/Comment:: IV Rocephin therapy to be initiated on admission. Influenza screen is negative (9) Hyponatremia SNOMED Code(s): 10655779 Code(s): E87.1 - HYPO-OSMOLALITY AND HYPONATREMIA Status: Acute Priority : Medium Current Visit: Yes Onset Date: 05/30/18 (10) Hypothyroidism (acquired) SNOMED Code(s): 865279179 Code(s): E03.9 - HYPOTHYROIDISM, UNSPECIFIED Status: Acute Priority: Medium Current Visit: Yes Onset Date: 05/30/18 Annotation/Comment:: Newly Diagnosed. Initiate low-dose Synthroid therapy. TSH should be repeated in 4 weeks. (11) Microcytic anemia SNOMED Code(s): 482474277 Code(s): D50.9 - IRON DEFICIENCY ANEMIA, UNSPECIFIED Status: Acute Priority: Low Current Visit: No Onset Date: 05/30/18 Annotation/Comment:: Newly diagnosed. Low Iron at 18, low TIBC at 216. Normal Ferritin. Suggestive of anemia secondary to inflammation/chronic disease. (12) IDDM (insulin dependent diabetes mellitus) SNOMED Code(s): 94665437 Code(s): E11.9 - TYPE 2 DIABETES MELLITUS WITHOUT COMPLICATIONS; Z79.4 - PRICER (CURRENT) USE OF INSULIN Status: Chronic Priority: Medium Current Visit: No Annotation/Comment:: 06/03/18 Usual insulin doses adjusted. 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) SNOMED Code(s): 672436693 Code(s): F09 - UNSP MENTAL DISORDER DUE TO KNOWN PHYSIOLOGICAL CONDITION Status: Chronic Priority: Medium Current Visit: No Annotation/Comment:: Mild increased confusion as above likely secondary to current infection with close observation during this hospitalization (15) Osteoarthritis SNOMED Code(s): 365929138 Code(s): M19.90 - UNSPECIFIED OSTEOARTHRITIS, UNSPECIFIED SITE Status: Chronic Priority: Medium Current Visit: No Qualifiers: Osteoarthritis location: multiple joints Osteoarthritis type: primary Qualified Code(s): M15.0 - Primary generalized (osteo)arthritis Annotation/Comment:: Stable by history (16) Sleep apnea SNOMED Code(s): 04778221 Code(s): G47.30 - SLEEP APNEA, UNSPECIFIED Status: Chronic Priority: Medium Current Visit: No Qualifiers: Sleep apnea type: unspecified type Qualified Code(s): G47.30 - Sleep apnea , unspecified Annotation/Comment:: Patient has been compliant with his CPAP - Problem List Review Problem List Initiated/Reviewed/Updated: Yes - My Orders Last 24 Hours: My Active Orders 06/03/18 20:00 Insulin Glarg,Human.Rec.Analog [LantUS] 5 unit SUBCUT BEDTIME Losartan [Cozaar] 25 mg PO BEDTIME 06/04/18 06:00 Furosemide [Lasix] 20 mg IVPUSH DAILY@0600 06/04/18 13:36 Discontinue Saline Lock [Peripheral IV Discontinue] [OM.PC] Routine 06/04/18 14:02 Ready for Discharge [RC] PER UNIT ROUTINE - Assessment Assessment:: As above - Plan Plan:: Continue above plan and observe for changes. Anticipate an additional 3 or 4 days of inpatient care depending on patient's clinic course. 06/01/18 Juan Luis De Jesus MD Continue antibiotics. Poor oral intake. 06/02/18 Juan Luis De Jesus MD More alert and talkative today. Creatinine elevated due to pre-renal deficit. Mild hyponatremia. IV fluids ordered and now IV lasix indicated to manage narrow fluid balance. Medically necessary to continue inpatient status, electrolyte management, monitoring kidney status, continue IV antibiotics for strep pharyngitis, and strep pneumonia. He is slowly improving. Still need medina catheter for accurate I/O. Prior to this acute illness he has been playing cards with fellow residents at [place], self propelling himself in wheelchair around the assisted visiting with people, eating well, so he is not appropriate for hospice status at this time. 06/03/18 Continues to make slow clinical improvement. Creatinine and sodium level improved today after IV fluid replacement and clinical judicious IV lasix. Improved oral intake today. Medically necessary to continue inpatient status for electrolyte management, monitoring kidney status, continue IV antibiotics for strep pharyngitis and strep pheumonia. Still need medina catheter for accurate I/O and to protect skin from urine since he already has skin break- down. 06/04/18 Juan Luis De Jesus MD He is feeling much better today. Improved strength. Labs continue to improve. Chest x-ray is improved. Ready for discharge to [facility].
--- NOTE | 2018-06-04 14:10 | PCM.DCSUM1 ---
Discharge Summary - Hospital Course Diagnosis: Stroke: No - Discharge Data Discharge Date: 06/04/18 Discharge Disposition: DC/Tfer to SNF 03 Condition: Fair - Discharge Diagnosis/Problem(s) (1) Streptococcal pneumonia SNOMED Code(s): 20206184 ICD Code: J15.4 - PNEUMONIA DUE TO OTHER STREPTOCOCCI Status: Acute Priority: High Current Visit: Yes (2) Streptococcus pneumoniae SNOMED Code(s): 27316049 ICD Code: A49.1 - STREPTOCOCCAL INFECTION, UNSPECIFIED SITE Status: Acute Priority: High Current Visit: No Onset Date: ~05/29/18 (3) Hypertension SNOMED Code(s): 95855999 ICD Code: I10 - ESSENTIAL (PRIMARY) HYPERTENSION Status: Chronic Priority : Medium Current Visit: Yes Problem Details: Continuing to observe, has been stable Qualifiers: Hypertension type: essential hypertension Qualified Code(s): I10 - Essential (primary) hypertension (4) CHF (congestive heart failure) SNOMED Code(s): 53672694 ICD Code: I50.9 - HEART FAILURE, UNSPECIFIED Status: Acute Priority: High Current Visit: No Problem Details: Medina placed for accurate I&O as well as to help keep bedding dry given pt's numerous decubital sores. 06/03/18 Required IV fluid replacement, then IV lasix for narrow clinical fluid balance. Need to continue to monitor renal status, electrolyte status, fluid status. Medina catheter still medically necessary for accurate I/O. and to keep skin dry with the skin break down. This requires continued inpatient status and prolonging patient stay in the hospital. Qualifiers: Heart failure type: unspecified Heart failure chronicity: acute on chronic Qualified Code(s): I50.9 - Heart failure, unspecified (5) COPD (chronic obstructive pulmonary disease) SNOMED Code(s): 26987917 ICD Code: J44.9 - CHRONIC OBSTRUCTIVE PULMONARY DISEASE, UNSPECIFIED Status : Acute Priority: High Current Visit: No Problem Details: . Qualifiers: COPD type: COPD with acute lower respiratory infection Qualified Code(s): J44.0 - Chronic obstructive pulmonary disease with acute lower respiratory infection (6) Chronic renal disease SNOMED Code(s): 385584056 ICD Code: N18.9 - CHRONIC KIDNEY DISEASE, UNSPECIFIED Status: Acute Priority: Medium Current Visit: Yes Qualifiers: Chronic kidney disease stage: stage 3 (moderate) Qualified Code(s): N18.3 - Chronic kidney disease, stage 3 (moderate) (7) Hypoxemia SNOMED Code(s): 461496715 ICD Code: R09.02 - HYPOXEMIA Status: Acute Priority: High Current Visit : Yes (8) Strep pharyngitis SNOMED Code(s): 80039673 ICD Code: J02.0 - STREPTOCOCCAL PHARYNGITIS Status: Acute Priority: High Current Visit: No Onset Date: 05/30/18 Problem Details: IV Rocephin therapy to be initiated on admission. Influenza screen is negative (9) Hyponatremia SNOMED Code(s): 47120645 ICD Code: E87.1 - HYPO-OSMOLALITY AND HYPONATREMIA Status: Acute Priority : Medium Current Visit: Yes Onset Date: 05/30/18 (10) Hypothyroidism (acquired) SNOMED Code(s): 852022180 ICD Code: E03.9 - HYPOTHYROIDISM, UNSPECIFIED Status: Acute Priority: Medium Current Visit: Yes Onset Date: 05/30/18 Problem Details: Newly Diagnosed. Initiate low-dose Synthroid therapy. TSH should be repeated in 4 weeks. (11) Microcytic anemia SNOMED Code(s): 185860008 ICD Code: D50.9 - IRON DEFICIENCY ANEMIA, UNSPECIFIED Status: Acute Priority: Low Current Visit: No Onset Date: 05/30/18 Problem Details: Newly diagnosed. Low Iron at 18, low TIBC at 216. Normal Ferritin. Suggestive of anemia secondary to inflammation/chronic disease. (12) IDDM (insulin dependent diabetes mellitus) SNOMED Code(s): 49184259 ICD Code: E11.9 - TYPE 2 DIABETES MELLITUS WITHOUT COMPLICATIONS; Z79.4 - [facility] (CURRENT) USE OF INSULIN Status: Chronic Priority: Medium Current Visit: No Problem Details: 06/03/18 Usual insulin doses adjusted. 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) SNOMED Code(s): 302382862 ICD Code: F09 - UNSP MENTAL DISORDER DUE TO KNOWN PHYSIOLOGICAL CONDITION Status: Chronic Priority: Medium Current Visit: No Problem Details: Mild increased confusion as above likely secondary to current infection with close observation during this hospitalization (15) Osteoarthritis SNOMED Code(s): 132327756 ICD Code: M19.90 - UNSPECIFIED OSTEOARTHRITIS, UNSPECIFIED SITE Status: Chronic Priority: Medium Current Visit: No Problem Details: Stable by history Qualifiers: Osteoarthritis location: multiple joints Osteoarthritis type: primary Qualified Code(s): M15.0 - Primary generalized (osteo)arthritis (16) Sleep apnea SNOMED Code(s): 97801333 ICD Code: G47.30 - SLEEP APNEA, UNSPECIFIED Status: Chronic Priority: Medium Current Visit: No Problem Details: Patient has been compliant with his CPAP Qualifiers: Sleep apnea type: unspecified type Qualified Code(s): G47.30 - Sleep apnea , unspecified - Patient Summary/Data Consults: Consultations 06/01/18 11:56 Consult to Occupational Therapy [OT Evaluation and Treatment] [CONS] Routine Consult to Physical Therapy [PT Evaluation and Treatment] [CONS] Routine - Patient Instructions Diet: Usual Diet as Tolerated Activity: As Tolerated Driving: Do Not Drive Showering/Bathing: May Shower Other/Special Instructions: Medina catheter to gravity. Routine medina catheter cares. D/C medina in 10 days. Accuchecks BID x 3 days then accuchecks BID weekly. O2 per nasal cannula at 2 LPM prn. CBC, BMP, CRP next week on lab day. PT-OT cansultation---evaluate and treat. - Discharge Plan *PRESCRIPTION DRUG MONITORING PROGRAM REVIEWED*: Not Applicable *COPY OF PRESCRIPTION DRUG MONITORING REPORT IN PATIENT [place]: Not Applicable Prescriptions/Med Rec: Albuterol [Proventil Neb Soln] 2.5 mg INH Q2H PRN #30 neb PRN Reason: SHORTNESS OF BREATH Albuterol/Ipratropium [DuoNeb 3.0-0.5 MG/3 ML] 3 ml NEB QIDRT #120 neb Aspirin [Adult Low Dose Aspirin EC] 81 mg PO DAILY #100 tablet. Cefuroxime Axetil [Ceftin] 500 mg PO BID #14 tablet Furosemide [Lasix] 40 mg PO DAILY #30 tablet Gabapentin [Neurontin] 100 mg PO TID #90 capsule Losartan [Cozaar] 25 mg PO BEDTIME #30 tablet Nystatin [Nystop] 0 gm TOP BID@0800,1999 #1 bottle Home Medications: Home Meds Cholecalciferol (Vitamin D3) [Vitamin D3] 2,000 unit PO DAILY 08/09/17 [History] Docusate Sodium [DOK] 100 mg PO QID 08/09/17 [History] Ferrous Sulfate 325 mg PO DAILY 08/09/17 [History] Metoprolol Succinate 100 mg PO DAILY 08/09/17 [History] Travoprost [Travatan Z 0.004% Ophth Soln] 1 drop EYEBOTH BEDTIME 08/09/17 [ History] Acetaminophen 650 mg PO Q6H PRN 05/30/18 [History] Bisacodyl [Dulcolax] 5 mg PO Q12H PRN 05/30/18 [History] Dextran 70/Hypromellose [Artificial Tears] 1 drop EYEBOTH DAILY 05/30/18 [ History] Sennosides/Docusate Sodium [Senna Plus Tablet] 1 tab PO BEDTIME 05/30/18 [ History] Sennosides/Docusate Sodium [Senna Plus Tablet] 2 tab PO DAILY 05/30/18 [History] Albuterol [Proventil Neb Soln] 2.5 mg INH Q2H PRN #30 neb 06/04/18 [Rx] Albuterol/Ipratropium [DuoNeb 3.0-0.5 MG/3 ML] 3 ml NEB QIDRT #120 neb 06/04/18 [Rx] Aspirin [Adult Low Dose Aspirin EC] 81 mg PO DAILY #100 tablet. 06/04/18 [Rx] Cefuroxime Axetil [Ceftin] 500 mg PO BID #14 tablet 06/04/18 [Rx] Furosemide [Lasix] 40 mg PO DAILY #30 tablet 06/04/18 [Rx] Gabapentin [Neurontin] 100 mg PO TID #90 capsule 06/04/18 [Rx] Losartan [Cozaar] 25 mg PO BEDTIME #30 tablet 06/04/18 [Rx] Nystatin [Nystop] 0 gm TOP BID@0800,2000 #1 bottle 06/04/18 [Rx] Oxygen Therapy Mode: Nasal Cannula Oxygen Flow Rate (L/min): 2 Patient Handouts: Furosemide injection, Ceftriaxone injection, Azithromycin for infusion, Strep Throat, Enoxaparin injection, [facility] Pneumonia Forms: ED Department Discharge Referrals: PCP,Unknown [Ordering Only Provider] - - Discharge Summary/Plan Comment DC Time >30 min.: No - Patient Data Vitals - Most Recent: Last Vital Signs Temp 98.4 F 06/04/18 12:00 Pulse 97 06/04/18 12:00 Resp 19 06/04/18 12:00 BP 144/76 H 06/04/18 12:00 Pulse Ox 92 L 06/04/18 12:00 Weight - Most Recent: 241 lb 8 oz I&O - Last 24 hours: Intake & Output 06/03/18 06/04/18 06/04/18 22:59 06:59 14:59 Intake Total 820 100 340 Output Total 1225 500 Balance -405 -400 340 Lab Results - Last 24 hrs: Laboratory Results - last 24 hr 06/03/18 06/04/18 06/04/18 Range/Units 16:48 06:55 06:55 WBC 7.9 (4.0-10.2) K/uL RBC 4.07 L (4.33-5.41) M/uL Hgb 11.5 L (13.1-16.8) g/dL Hct 33.4 L (39.0-49.0) % MCV 82.1 L (84.0-98.0) fL MCH 28.3 (28.2-33.3) pg MCHC 34.4 (31.7-36.0) g/dL RDW 14.6 H (11.2-14.1) % Plt Count 175 (150-350) K/uL Neut % (Auto) 67.7 (45.0-80.0) % Lymph % (Auto) 10.9 (10.0-50.0) % [place] % (Auto) 13.0 (2.0-14.0) % Eos % (Auto) 8.3 H (0.0-5.0) % Baso % (Auto) 0.1 (0.0-2.0) % Neut # (Auto) 5.32 (1.40-7.00) K/uL Lymph # (Auto) 0.86 (0.50-3.50) K/uL [place] # (Auto) 1.02 H (0.00-1.00) K/uL Eos # (Auto) 0.65 H (0.00-0.50) K/uL Baso # (Auto) 0.01 (0.00-0.20) K/uL Sodium 135 L (136-145) mmol/L Potassium 3.9 (3.5-5.1) mmol/L Chloride 97 L (98-107) mmol/L Carbon Dioxide 27.4 (21.0-32.0) mmol/L BUN 23 H (7-18) mg/dL Creatinine 1.15 (0.51-1.17) mg/dL Est Cr Clr Drug Dosing 51.91 mL/min Estimated GFR (MDRD) > 60 mL/min Glucose 97 (74-106) mg/dL POC Glucose 98 (65-110) mg/dl Calcium 8.9 (8.5-10.1) mg/dL Total Bilirubin 0.5 (0.2-1.0) mg/dL AST 16 (15-37) U/L ALT 22 (12-78) U/L Alkaline Phosphatase 87 (46-116) IU/L C-Reactive Protein 5.8 H (<=0.9) mg/dL NT-Pro-B Natriuret Pep 1964 H (0-125) pg/mL Total Protein 7.2 (6.4-8.2) g/dL Albumin 2.8 L (3.4-5.0) g/dL 06/04/18 Range/Units 07:13 WBC (4.0-10.2) K/uL RBC (4.33-5.41) M/uL Hgb (13.1-16.8) g/dL Hct (39.0-49.0) % MCV (84.0-98.0) fL MCH (28.2-33.3) pg MCHC (31.7-36.0) g/dL RDW (11.2-14.1) % Plt Count (150-350) K/uL Neut % (Auto) (45.0-80.0) % Lymph % (Auto) (10.0-50.0) % [place] % (Auto) (2.0-14.0) % Eos % (Auto) (0.0-5.0) % Baso % (Auto) (0.0-2.0) % Neut # (Auto) (1.40-7.00) K/uL Lymph # (Auto) (0.50-3.50) K/uL [place] # (Auto) (0.00-1.00) K/uL Eos # (Auto) (0.00-0.50) K/uL Baso # (Auto) (0.00-0.20) K/uL Sodium (136-145) mmol/L Potassium (3.5-5.1) mmol/L Chloride (98-107) mmol/L Carbon Dioxide (21.0-32.0) mmol/L BUN (7-18) mg/dL Creatinine (0.51-1.17) mg/dL Est Cr Clr Drug Dosing mL/min Estimated GFR (MDRD) mL/min Glucose (74-106) mg/dL POC Glucose 100 (65-110) mg/dl Calcium (8.5-10.1) mg/dL Total Bilirubin (0.2-1.0) mg/dL AST (15-37) U/L ALT (12-78) U/L Alkaline Phosphatase (46-116) IU/L C-Reactive Protein (<=0.9) mg/dL NT-Pro-B Natriuret Pep (0-125) pg/mL Total Protein (6.4-8.2) g/dL Albumin (3.4-5.0) g/dL MEET Results - Last 24 hrs: Microbiology 05/30/18 06:43 Aerobic Blood Culture - Final Blood - Venous NO GROWTH AFTER 5 DAYS Anaerobic Blood Culture - Final NO GROWTH AFTER 5 DAYS 05/30/18 07:04 Aerobic Blood Culture - Final Blood - Venous - Lab Draw NO GROWTH AFTER 5 DAYS Anaerobic Blood Culture - Final NO GROWTH AFTER 5 DAYS 06/03/18 11:01 Stool Occult Blood (MEET) - Final Stool / Feces NEGATIVE OCCULT BLOOD 06/02/18 07:10 Mycoplasma Serology - Final Blood Med Orders - Current: Current Medications Acetaminophen (Tylenol) 650 mg PO Q4H PRN PRN Reason: Pain/Fever Albuterol (Proventil Neb Soln) 2.5 mg INH Q2H PRN PRN Reason: SHORTNESS OF BREATH Albuterol/Ipratropium (Duoneb 3.0-0.5 Mg/3 Ml) 3 ml NEB QIDRT [facility] Last Admin: 06/04/18 11:38 Dose: 3 ml Artificial Tears (Liquitears 1.4% Ophth Soln) 0 ml EYEBOTH DAILY [facility] Last Admin: 06/04/18 08:52 Dose: 1 drop Bisacodyl (Dulcolax) 5 mg PO Q12H PRN PRN Reason: Constipation Last Admin: 06/02/18 20:19 Dose: 5 mg Docusate Sodium (Colace) 100 mg PO QID [facility] Last Admin: 06/04/18 11:38 Dose: Not Given Furosemide (Lasix) 20 mg IVPUSH DAILY@0600 [facility] Last Admin: 06/04/18 06:10 Dose: 20 mg Gabapentin (Neurontin) 100 mg PO TID [facility] Last Admin: 06/04/18 11:38 Dose: 100 mg Ceftriaxone Sodium 1 gm/ (Sodium Chloride) 100 mls @ 200 mls/hr IV Q12H [facility] Last Admin: 06/04/18 08:54 Dose: 200 mls/hr Insulin Glargine (Lantus) 5 unit SUBCUT BEDTIME [facility] Last Admin: 06/03/18 19:54 Dose: 5 units Latanoprost (Xalatan 0.005% Ophth Soln) 0 ml EYEBOTH BEDTIME [facility] Last Admin: 06/03/18 19:55 Dose: 1 drop Losartan Potassium (Cozaar) 25 mg PO BEDTIME [facility] Last Admin: 06/03/18 19:53 Dose: 25 mg Metoprolol Succinate (Toprol Xl) 100 mg PO DAILY [facility] Last Admin: 06/04/18 08:53 Dose: 100 mg Nystatin (Nystop) 0 gm TOP BID@0800,2000 [facility] Last Admin: 06/04/18 08:52 Dose: 1 applic Senna/Docusate Sodium (Senna Plus) 1 tab PO BEDTIME [facility] Last Admin: 06/03/18 19:53 Dose: 1 tab Senna/Docusate Sodium (Senna Plus) 2 tab PO DAILY [facility] Last Admin: 06/04/18 08:53 Dose: 2 tab Sodium Chloride (Saline Flush) 10 ml FLUSH ASDIRECTED PRN PRN Reason: Keep Vein Open Last Admin: 06/03/18 16:21 Dose: 10 ml Sodium Chloride (Saline Flush) 10 ml FLUSH Q12HR [facility] Last Admin: 06/04/18 08:53 Dose: 10 ml Temazepam (Restoril) 15 mg PO BEDTIME PRN PRN Reason: Insomnia Last Admin: 06/04/18 00:22 Dose: 15 mg Discontinued Medications Acetaminophen (Tylenol) 650 mg PO Q4H PRN PRN Reason: Pain Albuterol/Ipratropium (Duoneb 3.0-0.5 Mg/3 Ml) 3 ml NEB Q4HRRT PRN PRN Reason: Dyspnea Last Admin: 05/30/18 10:40 Dose: 3 ml Albuterol/Ipratropium (Duoneb 3.0-0.5 Mg/3 Ml) 3 ml NEB Q6HRRT [facility] Last Admin: 06/01/18 07:56 Dose: 3 ml Amlodipine Besylate (Norvasc) 10 mg PO DAILY [facility] Last Admin: 06/01/18 07:56 Dose: 10 mg Aspirin (Ecotrin) 325 mg PO DAILY [facility] Last Admin: 06/01/18 07:58 Dose: 325 mg Atorvastatin Calcium (Lipitor) 40 mg PO BEDTIME [facility] Last Admin: 05/31/18 19:26 Dose: 40 mg Azithromycin (Zithromax) 500 mg PO DAILY [facility] Last Admin: 06/04/18 08:54 Dose: 500 mg Cholecalciferol (Vitamin D3) 2,000 units PO DAILY [facility] Last Admin: 06/01/18 07:56 Dose: 2,000 units Enoxaparin Sodium (Lovenox) 30 mg SUBCUT Q24H [facility] Last Admin: 05/30/18 11:27 Dose: 30 mg Enoxaparin Sodium (Lovenox) 40 mg SUBCUT Q24H [facility] Last Admin: 05/31/18 12:00 Dose: 40 mg Enoxaparin Sodium (Lovenox) 30 mg SUBCUT Q24H [facility] Last Admin: 06/01/18 12:25 Dose: 30 mg Ferrous Sulfate (Ferrous Sulfate) 325 mg PO DAILY [facility] Last Admin: 06/01/18 07:58 Dose: 325 mg Furosemide (Lasix) 40 mg IVPUSH Q8H [facility] Last Admin: 05/31/18 11:59 Dose: 40 mg Furosemide (Lasix) 20 mg IVPUSH Q8H [facility] Last Admin: 06/01/18 11:08 Dose: 20 mg Furosemide (Lasix) 20 mg IVPUSH ONETIME ONE Stop: 06/02/18 21:21 Last Admin: 06/02/18 21:37 Dose: 20 mg Furosemide (Lasix) 20 mg IVPUSH ONETIME ONE Stop: 06/03/18 16:31 Last Admin: 06/03/18 16:21 Dose: 20 mg Gabapentin (Neurontin) 100 mg PO DAILY@1400 [facility] Last Admin: 06/02/18 15:17 Dose: 100 mg Gabapentin (Neurontin) 300 mg PO BID [facility] Last Admin: 06/02/18 17:14 Dose: 300 mg Guaifenesin/Dextromethorphan (Mucinex Dm Er 600-30 Mg) 1 tab PO BID [facility] Last Admin: 06/01/18 07:57 Dose: 1 tab Hydralazine HCl (Apresoline) 100 mg PO QID [facility] Last Admin: 06/01/18 07:46 Dose: Not Given Azithromycin 500 mg/ Sodium (Chloride) 250 mls @ 250 mls/hr IV Q24H [facility] Last Admin: 06/02/18 09:23 Dose: 250 mls/hr Sodium Chloride (Normal Saline) 1,000 mls @ 75 mls/hr IV ASDIRECTED [facility] Last Admin: 06/02/18 11:51 Dose: 75 mls/hr Insulin Glargine (Lantus) 20 unit SUBCUT BEDTIME [facility] Last Admin: 06/02/18 00:02 Dose: 20 unit Insulin Glargine (Lantus) 10 unit SUBCUT BEDTIME [facility] Last Admin: 06/02/18 20:21 Dose: 10 unit Insulin Human Lispro (Humalog) 4 unit SUBCUT DAILY [facility] Last Admin: 06/02/18 09:23 Dose: 4 units Insulin Human Lispro (Humalog) 0 unit SUBCUT BIDAC [facility]; Protocol Last Admin: 06/01/18 07:59 Dose: Not Given Losartan Potassium (Cozaar) 100 mg PO DAILY [facility] Last Admin: 06/01/18 07:47 Dose: Not Given Metoprolol Tartrate (Lopressor) 2.5 mg IVPUSH ONETIME ONE Stop: 05/30/18 09:34 Last Admin: 05/30/18 09:36 Dose: 2.5 mg Multivitamins/Minerals/Vitamin C (Tab-A-Sandra) 1 tab PO BEDTIME [facility] Last Admin: 05/31/18 19:26 Dose: 1 tab Nystatin (Nystop) 0 gm TOP BID [facility] Last Admin: 06/02/18 07:30 Dose: 1 applic Oxybutynin Chloride (Oxybutynin Er) 10 mg PO DAILY [facility] Last Admin: 06/01/18 08:02 Dose: 10 mg Potassium Chloride (Klor-Con M20) 20 meq PO TID [facility] Last Admin: 06/01/18 07:57 Dose: 20 meq Sodium Chloride (Saline Flush) 10 ml FLUSH Q12HR PRN PRN Reason: Keep Vein Open
== END 2018-06-04 15:35 | DRG 194 ==
LOC: LL.ED 06:09 → LL.MS 09:25
PROVIDERS: ADMIT Family Medicine; ATTEND Family Medicine
DX: J13 Pneumonia due to Streptococcus pneumoniae (principal); J44.0 Chronic obstructive pulmonary disease with (acute) lower respiratory infection; I13.0 Hypertensive heart and chronic kidney disease with heart failure and stage 1 through stage 4 chronic kidney disease, or unspecified chronic kidney disease; E87.1 Hypo-osmolality and hyponatremia; E11.22 Type 2 diabetes mellitus with diabetic chronic kidney disease; N18.3 Chronic kidney disease, stage 3 (moderate); I50.9 Heart failure, unspecified; E03.9 Hypothyroidism, unspecified; D50.9 Iron deficiency anemia, unspecified; F09 Unspecified mental disorder due to known physiological condition; R32 Unspecified urinary incontinence; M15.0 Primary generalized (osteo)arthritis; G47.30 Sleep apnea, unspecified; R00.0 Tachycardia, unspecified; H40.9 Unspecified glaucoma; K59.09 Other constipation; R09.02 Hypoxemia; E78.00 Pure hypercholesterolemia, unspecified; N40.0 Benign prostatic hyperplasia without lower urinary tract symptoms; E11.42 Type 2 diabetes mellitus with diabetic polyneuropathy; E11.21 Type 2 diabetes mellitus with diabetic nephropathy; F41.9 Anxiety disorder, unspecified; F32.9 Major depressive disorder, single episode, unspecified; J02.0 Streptococcal pharyngitis; E66.9 Obesity, unspecified; Z68.35 Body mass index [BMI] 35.0-35.9, adult; C61 Malignant neoplasm of prostate; G30.9 Alzheimer's disease, unspecified; Z87.01 Personal history of pneumonia (recurrent); F02.80 Dementia in other diseases classified elsewhere, unspecified severity, without behavioral disturbance, psychotic disturbance, mood disturbance, and anxiety; L89.329 Pressure ulcer of left buttock, unspecified stage; L89.319 Pressure ulcer of right buttock, unspecified stage; Z79.4 Long term (current) use of insulin; Z79.82 Long term (current) use of aspirin; Z79.899 Other long term (current) drug therapy; Z87.891 Personal history of nicotine dependence
CPT/HCPCS: 36415; 51702; 71045; 71046; 80048; 80053; 80061; 80171; 81001; 82272; 82550; 82553; 82607; 82728; 82746; 82803; 82962; 83036; 83540; 83550; 83605; 83735; 83880; 84443; 84484; 85025; 85610; 86140; 86738; 87040; 87086; 87430; 87641; 87804; 93005; 94640; 96365; 96375; 97162-GP; 97165-GO; 97530-GO; 97530-GP; 99285; A9270-GY; J0456; J0696; J1650; J1815; J1815-GY; J1940; J3490; J7030; J7050; J7620-GY

== ENCOUNTER 2018-08-14 14:49 | Emergency (ER) | payer MEDICARE, BC, MEDICAID ==
[2018-08-14] MEDS ORDERED: Sodium Chloride 0.9% 10 ML Syringe FLUSH PRN (15:00)
[2018-08-14 15:48] LABS: CHLORIDE,CL 97 mmol/L (98-107); SODIUM,NA 131 mmol/L (136-145)
--- NOTE | 2018-08-14 16:51 | EDM.PDOC ---
ED HPI GENERAL MEDICAL PROBLEM - General Chief Complaint: General Stated Complaint: increased creatinine level Time Seen by Provider: 08/14/18 14:59 Source of Information: Reports: Patient, Other ([facility] staff) History Limitations: Reports: Other (Cognitive impairment) - History of Present Illness INITIAL COMMENTS - FREE TEXT/NARRATIVE: Patient sent to ER for evaluation due to acute elevation in Bun/Cr, increased fatigue, increased confusion. [facility] that [facility] required more assistance than usual with [facility]. No other reported changes from [facility]. Patient says that he feels well when asked. Does not know why he is here. Is oriented to self/place but does not know year. When asked specifically if he is more tired than usual, he says yes. Otherwise ROS negative. - Related Data Allergies Allergy/AdvReac Type Severity Reaction Status Date / Time cefuroxime [From Ceftin] Allergy Other Verified 08/14/18 14:59 Home Meds: Home Meds Cholecalciferol (Vitamin D3) [Vitamin D3] 2,000 unit PO DAILY 08/09/17 [History] Ferrous Sulfate 325 mg PO DAILY 08/09/17 [History] Metoprolol Succinate 100 mg PO DAILY 08/09/17 [History] Travoprost [Travatan Z 0.004% Ophth Soln] 1 drop EYEBOTH BEDTIME 08/09/17 [ History] Acetaminophen 650 mg PO Q6H PRN 05/30/18 [History] Bisacodyl [Dulcolax] 5 mg PO Q12H PRN 05/30/18 [History] Sennosides/Docusate Sodium [Senna Plus Tablet] 1 tab PO BEDTIME 05/30/18 [ History] Sennosides/Docusate Sodium [Senna Plus Tablet] 2 tab PO DAILY 05/30/18 [History] Albuterol [Proventil Neb Soln] 2.5 mg INH Q2H PRN #30 neb 06/04/18 [Rx] Aspirin [Adult Low Dose Aspirin EC] 81 mg PO DAILY #100 tablet. 06/04/18 [Rx] Furosemide [Lasix] 40 mg PO DAILY #30 tablet 06/04/18 [Rx] Gabapentin [Neurontin] 100 mg PO TID #90 capsule 06/04/18 [Rx] Losartan [Cozaar] 25 mg PO BEDTIME #30 tablet 06/04/18 [Rx] Bisacodyl [Biscolax] 10 mg RC DAILY PRN 08/14/18 [History] Dextran 70/Hypromellose [Artificial Tears] 1 each OP DAILY 08/14/18 [History] Famotidine [Pepcid AC] 20 mg PO BID 08/14/18 [History] Ipratropium/Albuterol Sulfate [Iprat-Albut 0.5-3(2.5) MG/3 ML] 3 ml INH Q4H PRN 08/14/18 [History] Ipratropium/Albuterol Sulfate [Iprat-Albut 0.5-3(2.5) mg/3 ml] 3 ml INH BID [History] Past Medical History HEENT History: Reports: Cataract, Glaucoma, Impaired Vision Cardiovascular History: Reports: High Cholesterol, Hypertension Respiratory History: Reports: Bronchitis, Recurrent, Pneumonia, Recurrent, Sleep Apnea, Other (See Below) Other Respiratory History: He does use CPAP. Gastrointestinal History: Reports: Chronic Constipation, Colon Polyp, Hepatitis , Other (See Below) Other Gastrointestinal History: C. difficile colitis. Genitourinary History: Reports: BPH, Chronic Renal Insuffiency, Diabetic Nephropathy, Prostate Disorder, Renal Calculus, Urinary Incontinence, Other ( See Below) Other Genitourinary History: Renal insufficiency with right sided probable atrophic kidney by bone scan as below. Prostate cancer. Musculoskeletal History: Reports: Arthritis, Back Pain, Chronic, Fracture, Neck Pain, Chronic, Osteoarthritis, Other (See Below) Other Musculoskeletal History: Wrist fracturedate or side unknown Neurological History: Reports: Alzheimers Disease, Neuropathy, Diabetic, Neuropathy, Peripheral Psychiatric History: Reports: Addiction, Anxiety, Depression, Other (See Below) Other Psychiatric History: Previous anxiety depression disorder and alcohol abuse as below. Endocrine/Metabolic History: Reports: Diabetes, Type II, IDDM, Obesity/BMI 30+ Hematologic History: Reports: None Immunologic History: Reports: None Oncologic (Cancer) History: Reports: Prostate, Other (See Below) Other Oncologic History: Prostate cancer with no therapy or surgery. Dermatologic History: Reports: None - Infectious Disease History Infectious Disease History: Reports: C-Difficile, Chicken Pox, Measles, Mumps, Shingles - Past Surgical History Head Surgeries/Procedures: Reports: None HEENT Surgical History: Reports: Cataract Surgery, Laser Surgery, Oral Surgery, Other (See Below) Other HEENT Surgeries/Procedures: Complete teeth extraction with dentures uppers and lowers. Possible unknown eye laser surgery Respiratory Surgical History: Reports: None GI Surgical History: Reports: Colonoscopy, Polypectomy Male Surgical History: Reports: Circumcision Endocrine Surgical History: Reports: None Neurological Surgical History: Reports: None Musculoskeletal Surgical History: Reports: None Oncologic Surgical History: Reports: None Dermatological Surgical History: Reports: None - Past Imaging History Past Imaging History: Reports: Bone Scan (Whole body bone scan on .) Social & Family History - Family History HEENT: Reports: None Cardiac: Reports: Blood Clots/VTE/DVT, Hypertension, PVD/COD, Other (See Below) Other Cardiac Family History: Sons 2 with hypertension. Son with peripheral vascular disease requiring stent placement in his leg with subsequent IntraStent thrombosis. GI: Reports: None : Reports: None OBGYN: Reports: None Musculoskeletal: Reports: Arthritis, Gout, Osteoarthritis, Other (See Below) Other Musculoskeletal Family History: Son with osteoarthritis and gout. Neurological: Reports: None Psychiatric: Reports: None Endocrine/Metabolic: Reports: Diabetes, type II, Other (See Below) Other Endocrine/Metabolic Family History: Son with AODM. Hematologic: Reports: None Immunologic: Reports: None Dermatologic: Reports: None Oncologic: Reports: Cervix, Other (See Below) Other Oncologic Family History: Daughter with fatal cervical cancer at age 26. - Caffeine Use Caffeine Use: Reports: Coffee - Living Situation & Occupation Living situation: Reports: (2018. 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 ED EXAM, GENERAL - Physical Exam Exam: See Below Exam Limited By: No Limitations General Appearance: Alert, WD/WN, No Apparent Distress, Other (sitting in wheelchair ) Eye Exam: Bilateral Eye: EOMI, PERRL Ears: Normal External Exam Nose: No: Nasal Deformity, Nasal Swelling, Nasal Drainage Throat/Mouth: Normal Lips, Normal Voice, No Airway Compromise Head: Atraumatic, Normocephalic Neck: Normal Inspection, Supple, Non-Tender, Full Range of Motion. No: Carotid Bruit Respiratory/Chest: No Respiratory Distress, Lungs Clear, Normal Breath Sounds, No Accessory Muscle Use, Chest Non-Tender Cardiovascular: Normal Peripheral Pulses, Regular Rate, Rhythm, No Edema, No Murmur Peripheral Pulses: 2+: Radial (L), Radial (R) GI/Abdominal: Normal Bowel Sounds, Soft, Non-Tender, No Distention (Male) Exam: Deferred Rectal (Males) Exam: Deferred Back Exam: No: CVA Tenderness (L), CVA Tenderness (R), Muscle Spasm, Paraspinal Tenderness, Vertebral Tenderness Extremities: Non-Tender, Normal Capillary Refill Neurological: Alert, Other (equal tone/strength bilaterally) Psychiatric: Normal Affect, Normal Mood Skin Exam: Warm, Dry, Intact, Normal Color Course - Orders/Labs/Meds Orders: Active Orders 24 hr Category Date Time Status CULTURE URINE [RM] Stat Lab 08/14/18 16:38 Ordered Sodium Chloride 0.9% [Saline Flush] Med 08/14/18 15:00 Ordered 10 ml FLUSH ASDIRECTED PRN Saline Lock Insert [OM.PC] Routine Oth 08/14/18 15:01 Ordered Medication Orders Sodium Chloride (Saline Flush) 10 ml FLUSH ASDIRECTED PRN PRN Reason: Keep Vein Open Labs: Laboratory Tests 08/14/18 08/14/18 08/14/18 Range/Units 15:20 15:20 16:00 WBC 9.3 (4.0-10.2) K/uL RBC 3.88 L (4.33-5.41) M/uL Hgb 11.3 L (13.1-16.8) g/dL Hct 32.9 L (39.0-49.0) % MCV 84.8 (84.0-98.0) fL MCH 29.1 (28.2-33.3) pg MCHC 34.3 (31.7-36.0) g/dL RDW 14.8 H (11.2-14.1) % Plt Count 175 (150-350) K/uL Neut % (Auto) 64.7 (45.0-80.0) % Lymph % (Auto) 21.2 (10.0-50.0) % [place] % (Auto) 10.0 (2.0-14.0) % Eos % (Auto) 3.8 (0.0-5.0) % Baso % (Auto) 0.3 (0.0-2.0) % Neut # (Auto) 6.03 (1.40-7.00) K/uL Lymph # (Auto) 1.97 (0.50-3.50) K/uL [place] # (Auto) 0.93 (0.00-1.00) K/uL Eos # (Auto) 0.35 (0.00-0.50) K/uL Baso # (Auto) 0.03 (0.00-0.20) K/uL Sodium 131 L (136-145) mmol/L Potassium 4.4 (3.5-5.1) mmol/L Chloride 97 L (98-107) mmol/L Carbon Dioxide 26.8 (21.0-32.0) mmol/L BUN 44 H (7-18) mg/dL Creatinine 2.97 H D (0.51-1.17) mg/dL Est Cr Clr Drug Dosing TNP Estimated GFR (MDRD) 21 mL/min Glucose 265 H (74-106) mg/dL Calcium 8.6 (8.5-10.1) mg/dL Total Bilirubin 0.4 (0.2-1.0) mg/dL AST 13 L (15-37) U/L ALT 17 (12-78) U/L Alkaline Phosphatase 106 (46-116) IU/L NT-Pro-B Natriuret Pep 2097 H (0-125) pg/mL Total Protein 7.2 (6.4-8.2) g/dL Albumin 2.6 L (3.4-5.0) g/dL Specimen Type Urinfol Urine Color Yellow Urine Appearance Cloudy Urine pH 5.5 (5.0-9.0) Ur Specific [place] 1.015 (1.005-1.030) Urine Protein 100 H (NEGATIVE) mg/dL Urine Glucose (UA) 250 H (NEGATIVE) mg/dL Urine Ketones Negative (NEGATIVE) mg/dL Urine Occult Blood Large H (NEGATIVE) Urine Nitrite Positive H (NEGATIVE) Urine Bilirubin Negative (NEGATIVE) Urine Urobilinogen 0.2 (0.2-1.0) E.U./dL Ur Leukocyte Esterase Small H (NEGATIVE) Urine RBC Not Reportable Urine WBC Not Reportable Meds: Medications Generic Name Dose Route Start Last Admin Trade Name Freq PRN Reason Stop Dose Admin Sodium Chloride 10 ml 08/14/18 15:00 Saline Flush FLUSH ASDIRECTED PRN Keep Vein Open - Re-Assessments/Exams Free Text/Narrative Re-Assessment/Exam: 08/14/18 17:03 Patient noted to have Bun 44 and Cr 2.97 Cr is up from 1.15 in May Glu elevated at 261 Normal WBC Hgb decreased at 11.1 Na 131 UA: only could obtain small specimen from [facility]. + for Nitrite/L.E. which is suggestive of UTI. Specimen not large enough for WBC count. Enough present for culture which was ordered. Call placed to [facility]. Discussed patient with from Nephrology. Given the acute elevation in Creatinine he recommended US study to look for/ rule out obstruction of kidneys. US not available until Friday in [place]. Plans made to transfer patient to [facility] for further evaluation including US study. No further intervention performed prior to transfer to [facility]. Departure - Departure Time of Disposition: 17:52 Disposition: DC/Tfer to [facility] 02 Condition: Fair Clinical Impression: Suspected UTI Acute renal failure Qualifiers: Acute renal failure type: unspecified Qualified Code(s): N17.9 - Acute kidney failure, unspecified - Discharge Information *PRESCRIPTION DRUG MONITORING PROGRAM REVIEWED*: Not Applicable *COPY OF PRESCRIPTION DRUG MONITORING REPORT IN PATIENT TRACEE: Not Applicable Forms: ED Department Discharge - My Orders Last 24 Hours: My Active Orders 08/14/18 15:00 Sodium Chloride 0.9% [Saline Flush] 10 ml FLUSH ASDIRECTED PRN 08/14/18 15:01 Saline Lock Insert [OM.PC] Routine 08/14/18 16:38 CULTURE URINE [RM] Stat - Assessment/Plan Last 24 Hours: My Active Orders 08/14/18 15:00 Sodium Chloride 0.9% [Saline Flush] 10 ml FLUSH ASDIRECTED PRN 08/14/18 15:01 Saline Lock Insert [OM.PC] Routine 08/14/18 16:38 CULTURE URINE [RM] Stat
== END 2018-08-14 17:55 ==
LOC: LL.ED 14:49
DX: N17.9 Acute kidney failure, unspecified (principal); I12.9 Hypertensive chronic kidney disease with stage 1 through stage 4 chronic kidney disease, or unspecified chronic kidney disease; N18.9 Chronic kidney disease, unspecified; E78.00 Pure hypercholesterolemia, unspecified; E11.22 Type 2 diabetes mellitus with diabetic chronic kidney disease; E11.21 Type 2 diabetes mellitus with diabetic nephropathy; F41.9 Anxiety disorder, unspecified; F32.9 Major depressive disorder, single episode, unspecified; Z88.8 Allergy status to other drugs, medicaments and biological substances; Z79.899 Other long term (current) drug therapy; Z79.82 Long term (current) use of aspirin
CPT/HCPCS: 36415; 80053; 81001; 83880; 85025; 87086; 87088; 87186; 99284